=== PATIENT | female | born 1955 | race African-American/Black ===

== ENCOUNTER 2020-11-15 15:19 | Outpatient (REF) | payer BC, SELFPAY | END 2020-11-15 15:20 | disposition home or self-care (01) | LOC: HO.LNP 15:19 | PROVIDERS: Visit Provider Hospitalist | DX: Z20.828 Contact with and (suspected) exposure to other viral communicable diseases (principal) | CPT/HCPCS: U0003 ==

== ENCOUNTER 2021-09-20 14:02 | Outpatient (REF) | payer BC, SELFPAY ==
[2021-09-20 15:09] LABS: Influenza A PCR NEGATIVE (Negative); Influenza B PCR NEGATIVE (Negative); Resp Syncy Virus RNA Qual PCR NEGATIVE (Negative); SARS COV2 PCR INHOUSE NEGATIVE (Negative)
== END 2021-09-20 14:03 | disposition home or self-care (01) ==
LOC: HO.LAB 14:02
PROVIDERS: Visit Provider Physician Assistant Medical
DX: Z20.822 Contact with and (suspected) exposure to COVID-19 (principal); J06.9 Acute upper respiratory infection, unspecified
CPT/HCPCS: 0241U; 36415

== ENCOUNTER 2022-06-22 11:40 | Outpatient (REF) | payer BC, SELFPAY ==
--- NOTE | ~2022-06-22 | XR_ITS ---
EXAMINATION: XR CHEST CLINICAL INFORMATION: Cough, rule out pneumonia. COMPARISON: None TECHNIQUE: 2 views of the chest were obtained. FINDINGS: No significant abnormality is noted involving the heart, lungs, mediastinum, bony thorax or soft tissues. XR/XR chest 2V IMPRESSION: No acute cardiopulmonary process.
[2022-06-22 13:42] LABS: MANUAL DIFF FLAG NO
[2022-06-22 13:49] LABS: Basophils Percent Auto 0.3 % (0-2); Eosinophils Percent Auto 0.1 % (0-4); Hematocrit 41.1 % (37.0-47.0); Hemoglobin 13.1 g/dl (12.0-16.0); Imm Gran Abs Auto 0.02 X10*3/uL (0.00-0.03); Imm Gran Pct Auto 0.2 % (0.0-0.4); Lymphocytes Absolute Auto 2.5 X10*3/uL (1.2-4.9); Lymphocytes Percent Auto 24.6 % (20-40); Mean Corpuscular HGB Conc 31.9 g/dl (31.0-35.0); Mean Corpuscular Hemoglobin 29.2 pg (27.0-33.0); Mean Corpuscular Volume 91.7 fL (80.0-98.0); Mean Platelet Volume 11.1 fL (9.4-12.3); Monocytes Absolute Auto 0.9 X10*3/uL (0.1-1.2); Monocytes Percent Auto 8.6 % (2-11); Neutrophils Absolute Auto 6.8 x10*3/uL (2.0-8.3); Neutrophils Percent Auto 66.2 % (45-73); Platelet Count 302 X10*3/uL (160-400); Red Blood Count 4.48 X10*6/uL (4.20-5.50); Red Cell Distribution Width 13.9 % (11.0-16.0); White Blood Count 10.2 X10*3/uL (4.8-10.8)
[2022-06-22 14:03] LABS: Anion Gap 11 (12-20); Blood Urea Nitrogen 22 mg/dL (9-16); Calcium 9.1 mg/dL (8.4-10.2); Carbon Dioxide 25 mmol/L (22-29); Chloride 104 mmol/L (96-108); Estimated Glomerular Filt Rate 51; Glucose Random 120 mg/dL (60-115); Potassium 3.8 mmol/L (3.3-5.1); Sodium 136 mmol/L (135-145)
== END 2022-06-22 11:41 | disposition home or self-care (01) ==
LOC: HO.HMGCX 11:40
PROVIDERS: PCP Internal Medicine; Visit Provider Internal Medicine
DX: R53.83 Other fatigue (principal); E78.5 Hyperlipidemia, unspecified
CPT/HCPCS: 36415; 71046; 80048; 85025

== ENCOUNTER 2023-02-19 15:33 | Outpatient (REF) | payer BC, SELFPAY ==
--- NOTE | ~2023-02-19 | XR_ITS ---
EXAMINATION: XR KNEE, RIGHT CLINICAL INFORMATION: Right knee pain COMPARISON: Knee x-rays of 01/14/2008. TECHNIQUE: Four views of the right knee. FINDINGS: Right knee total arthroplasty hardware is in place. There is no evidence of periprosthetic lucency to suggest hardware loosening. No evidence of acute osseous fracture or dislocation. No evidence of suprapatellar joint effusion. No soft tissue calcifications are seen. XR/XR knee RT 4V IMPRESSION: No evidence of acute fracture or dislocation. Right total knee arthroplasty hardware is in place, without evidence of hardware loosening or hardware fracture. The prosthesis appears to be in appropriate position.
== END 2023-02-19 15:34 | disposition home or self-care (01) ==
LOC: HO.HMGCX 15:33
PROVIDERS: PCP Internal Medicine; Visit Provider Internal Medicine
DX: M25.561 Pain in right knee (principal)
CPT/HCPCS: 73564

== ENCOUNTER 2023-05-16 13:40 | Outpatient (REF) | payer BC, SELFPAY ==
--- NOTE | ~2023-05-16 | XR_ITS ---
EXAMINATION: XR CHEST CLINICAL INFORMATION: Acute sinusitis, unspecified COMPARISON: May 2022. TECHNIQUE: 2 views of the chest were obtained. Patient mildly rotated to the right. FINDINGS: No significant abnormality is noted involving the heart, lungs, mediastinum, bony thorax or soft tissues. There are small thoracic spondylitic changes. XR/XR chest 2V IMPRESSION: Unremarkable examination.
== END 2023-05-16 13:41 | disposition home or self-care (01) ==
LOC: HO.HMGCX 13:40
PROVIDERS: PCP Internal Medicine; Visit Provider Internal Medicine
DX: J01.90 Acute sinusitis, unspecified (principal)
CPT/HCPCS: 71046

== ENCOUNTER 2023-07-04 08:29 | Outpatient (AMB) | payer BC, SELFPAY ==
--- OUTSIDE RECORDS SUMMARY | 2023-07-04 08:32 | XMS_ITS | Patient Health Record ---
Demographics Address [address] [place] [address] Mobile Email Address Preferred Language en Marital Status unmarried Tenriism Affiliation Unknown Race Black or Padmini rican Ethnic Group Unknown Author Name [facility] Address [address] [place] [address] Support Name Relationship Address Phone EnocjosuéAmanda Emergency Contact [address] [place] [id number] Bruec Vieira Guarantor Unknown Care Team Providers Care Detasseler Name Role Phone Sonny Whitaker MD Primary Care Provider Unavailab Eva Mcdaniel Unavailable [phone] ALLERGIES Allergen (clinical drug ingredient) Drug/Non Drug Allergy documented on EMR Reaction Allergy Type Onset Date Status Adhesive bruising Allergy Active aspirin Aspirin vomiting Drug Allergy Active Latex Latex itching Allergy Active Penicillin swelling Drug Allergy Active Shellfish (FN) Shellfish-derived Products swelling Drug Allergy Active REASON FOR REFERRAL No Information MEDICATIONS Medication SIG (Take, Route, Frequency, Duration) Notes Start Date End Date Status Ibuprofen 800 MG 1 tablet with food o r milk as needed Orally Three times a day Active zzzCompression Stockings 20-30mm Hg . . . for . Active SOCIAL HISTORY Tobacco Use: Social History Observation Description Date Details (start date - stop date) Never Smoker NA - NA Sex Assigned At : Social History Observation Description Sex Assigned At Unknown Tobacco Use/Smoking Question Answer Notes Are you a: nonsmoker Additional Findings: Tobacco Non-User Current no n-smoker Alcohol Screen Question Answer Notes Did you have a drink containing alcohol in the p ast year? No Points 0 Interpretation Negative Tobacco use other than smoking: Question Answer Notes Are you an other tobacco user? No PROBLEMS Problem Type ICD Code Onset Dates Problem Status W/U Status Risk SNOMED Code Notes Problem Venous insufficiency (chronic) (peripheral) (I87.2) Active confirmed Peripheral veno us insufficiency (48735271) Problem Primary osteoarthritis, right ankle and foot (M19.071) Active confirmed Localized, primary osteoarthritis of the ankle and/or foot (721576981) Problem Primary osteoarthritis, left ankle and foot (M19.072) Active confirmed Localized, primary osteoarthritis of the ankle and/or foot (364451790) Problem Other hammer toe(s) (acquired), right foot (M20.41) Active confirmed Acquired hamme r toe of right foot (9535777371310887 ) Problem Other hammer toe(s) (acquired), left foot (M20.42) Active confirmed Acquired hamme r toe of left foot (4291448008350527 ) PLAN OF TREATMENT No Information Insurance Providers Payer Name Payer Address Payer Phone Subscriber Number Group Number Insured Name Patient Relationship to Insured Coverage Start Date Coverage End Date Varinder Iverson [address] [place] [address] [id number] Bruce Vieira Self - patient is the insured MEDICAL (GENERAL) HISTORY Medical History History ICD Code Arthritis Back,Hip,and Knee pain Headaches/Migraines Psoriasis/eczema Sciatica Measles Mumps Chicken pox Joint implants/screws Surgical History Surgery Date(Month/Year) rotator cuff, left 08/2012 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
--- NOTE | 2023-07-04 08:45 | AM.OFFWIN_ITS ---
Intake Vital Signs 07/04/23 08:46 Respiration 20 Pulse 67 Pulse Source Pulse Oximeter Temp 98.3 F Temp Source Oral Pulse Oximetry (%) 96 Oxygen Delivery Method Room Air Intake Visit Reasons: EP cough, chest pain, diarrhea (lobby masked) Patient Tobacco Use Status: Never used Tobacco Bottle Gauger Required: No Is last menstrual period known: No Post menopausal: Yes Patient : No Allergies penicillamine Allergy (Unknown, Verified 07/04/23 08:54) unknown Medication List - Last Reconciled 07/04/23 by Randall Fields MD albuterol sulfate 90 mcg/actuation 2 puffs inhalation Q4H PRN gabapentin 300 mg PO QID ibuprofen 800 mg PO Q8H PRN ranitidine HCl 150 mg PO BEDTIME Do you need a note to return to daycare/school/sports/work: Yes Return to da ycare/school/sports/work/other note: work HPI EP cough, chest pain, diarrhea (lobby masked) HPI Details Patient presents for a sick visit. Reporting symptoms of sinus congestion, sore throat and difficulty swallowing. Low-grade fever. No family member is sick. No recent travel. Patient reports symptoms of malaise and fatigue. [facility] Social History Alcohol intake: never Patient Tobacco Use Status: Never used Tobacco Patient : No Physical Exam Vital Signs: Last Vital Signs Temp 98.3 F 07/04/23 08:46 Pulse 67 07/04/23 08:46 Resp 20 07/04/23 08:46 Pulse Ox 96 07/04/23 08:46 Oxygen Delivery Method Room Air 07/04/23 08:46 Const General: cooperative and healthy appearing Nutritional Appearance: well nourished Orientation/consciousness: patient oriented x3 Limitations: no limitations HEENT Head: Yes normal to inspection Eyes General: appearance normal, both eyes and all related structures Neck Neck: Yes normal visual inspection Chest Chest palpation & inspection: normal palpation of entire chest wall Resp Effort & Inspection: normal respiratory effort Neuro General: patient oriented x3 Assessment & Plan Assessment & Plan (1) Upper respiratory tract infection: Code(s): J06.9 - Acute upper respiratory infection, unspecified Plan: Antibiotics ordered. Increase fluid intake. Tylenol for aches and pains. If symptoms worsen, follow-up here for a recheck. Coding Level of Care Code Est Pt Level 3 (35542) Diagnoses Upper respiratory tract infection J06.9
[2023-07-04 08:46] VITALS: PULSE 67; RESP 20; TEMP 36.8; O2SAT 96
== END 2023-07-04 09:04 | disposition home or self-care (01) ==
PROVIDERS: PCP Internal Medicine; Visit Provider Internal Medicine
DX: J06.9 Acute upper respiratory infection, unspecified (principal)
CPT/HCPCS: 99213

== ENCOUNTER 2023-12-20 09:58 | Outpatient (AMB) | payer BC, SELFPAY ==
--- OUTSIDE RECORDS SUMMARY | 2023-12-20 10:00 | XMS_ITS | Patient Health Record ---
Demographics Address [address] [place] [address] Mobile Email Address Preferred Language en Marital Status unmarried Anabaptist Affiliation Unknown Race Black or Padmini rican Ethnic Group Unknown Author Name Unknown [facility] Address [address] [place] [address] Support Name Relationship Address Phone EnocjosuéAmanda Emergency Contact [address] [place] [id number] Bruce Vieira Guarantor Unknown [phone] Care Team Providers Care Junk Dealer Name Role Phone Sonny Whitaker MD Primary Care Provider Unavailab Eva Mcdaniel Unavailable [phone] ALLERGIES Allergen (clinical drug ingredient) Drug/Non Drug [...] (I87.2) Active confirmed Peripheral veno us insufficiency (51442658) Problem Primary osteoarthritis, right ankle and foot (M19.071) Active confirmed Localized, primary osteoarthritis of the ankle and/or foot (965931431) Problem Primary osteoarthritis, left ankle and foot (M19.072) Active confirmed Localized, primary osteoarthritis of the ankle and/or foot (190414728) Problem Other hammer toe(s) (acquired), right foot (M20.41) Active confirmed Acquired hamme r toe of right foot ([id number] ) Problem Other hammer toe(s) (acquired), left foot (M20.42) Active confirmed Acquired hamme r toe of left foot ([id number] ) PLAN OF TREATMENT No Information Insurance Providers Payer Name Payer Address Payer Phone Subscriber Number Group Number Insured Name Patient Relationship to Insured Coverage Start Date Coverage End Date Varinder Iverson [address] [place] [address] [id number] Bruce Vieira Self - patient is the insured MEDICAL (GENERAL) HISTORY Medical History History ICD Code Arthritis Back,Hip,and Knee pain Headaches/Migraines Psoriasis/eczema Sciatica Measles Mumps Chicken pox Joint implants/screws Surgical History Surgery Date(Month/Year) rotator cuff, left 08/2012 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
--- NOTE | 2023-12-20 10:04 | AM.OFFWIN_ITS ---
Intake Vital Signs 12/20/23 10:05 Height 5 ft Weight 262 lb BMI 51.2 BP 140/78 H Blood Pressure Location Lt brachial Position Sitting Pulse 98 Pulse Source Pulse Oximeter Temp 97.1 F Temp Source Temporal Artery Scan Pulse Oximetry (%) 98 Oxygen Delivery Method Room Air Intake Visit Reasons: EP lightheaded congestion phlem [id number] Intake Note: pt is here today for lightheaded congestion phlem started yesterday Patient Tobacco Use Status: Never used Tobacco Allergies penicillamine Allergy (Unknown, Verified 12/20/23 10:05) unknown Medication List - Last Reconciled 12/20/23 by Angela Tavarez NP albuterol sulfate 90 mcg/actuation 2 puffs inhalation Q4H PRN azithromycin take 500 mg today (day 1), then 250 mg for 4 days (days 2-5) PO ibuprofen 800 mg PO Q8H PRN ranitidine HCl 150 mg PO BEDTIME Do you need a note to return to daycare/school/sports/work: Yes HPI HPI Comments History of Present Illness Details 68 y/o female presents to [facility] in clinic with c/o cough, and nasal congestion since yesterday. She has been taking oTC remedies. [facility] Social History Alcohol intake: never Patient Tobacco Use Status: Never used Tobacco Review of Systems Const All systems reviewed & are unremarkable except as noted in HPI and below Physical Exam Vital Signs: Last Vital Signs Temp 97.1 F 12/20/23 10:05 Pulse 98 12/20/23 10:05 BP 140/78 H 12/20/23 10:05 Pulse Ox 98 12/20/23 10:05 Oxygen Delivery Method Room Air 12/20/23 10:05 BMI result Body Mass Index 51.2 Const General: comfortable and no acute distress HEENT Head: Yes normocephalic Ears: external ears normal and TM's normal bilaterally General nose exam: Normal external nose present and Nasal discharge present Face and sinus: Yes sinuses nontender Mouth: oropharynx normal Throat: Yes postnasal drainage Resp Effort & Inspection: normal respiratory effort, no audible wheezes and Actively coughing Auscultation: clear to auscultation bilaterally, no crackles, no rales, no rhonchi and no wheezes Cardio Rate: regular rate Rhythm: regular rhythm Assessment & Plan Assessment & Plan (1) Acute rhinosinusitis: Code(s): J01.90 - Acute sinusitis, unspecified Plan: - Rest, hydrate well - OTC cold remedies. - Monitor for fevers. Orders: Orders SARS-CoV2/FLU/RSV Today J01.90 - Acute sinusitis, unspecified Medications: New benzonatate 200 mg (2 x 100 mg) PO TID 30 caps 0RF Coding Level of Care Code Est Pt Level 3 (43735) Diagnoses Acute rhinosinusitis J01.90 Time Spent (min) 15
[2023-12-20 10:05] VITALS: BP 140/78; PULSE 98; TEMP 36.2; O2SAT 98; BMI 51.2
== END 2023-12-20 11:29 | disposition home or self-care (01) ==
PROVIDERS: PCP Internal Medicine; Visit Provider Nurse Practitioner Family
DX: J01.90 Acute sinusitis, unspecified (principal)
CPT/HCPCS: 99213

== ENCOUNTER 2023-12-20 14:33 | Outpatient (REF) | payer BC, SELFPAY ==
[2023-12-20 15:46] LABS: Influenza A PCR NEGATIVE (Negative); Influenza B PCR NEGATIVE (Negative); Resp Syncy Virus RNA Qual PCR NEGATIVE (Negative); SARS COV2 PCR INHOUSE NEGATIVE (Negative)
== END 2023-12-20 14:34 | disposition home or self-care (01) ==
LOC: HO.LNP 14:33
PROVIDERS: Visit Provider Nurse Practitioner Family
DX: Z11.52 Encounter for screening for COVID-19 (principal); Z20.822 Contact with and (suspected) exposure to COVID-19; J01.90 Acute sinusitis, unspecified
CPT/HCPCS: 0241U

== ENCOUNTER 2024-01-04 07:00 | Outpatient (RCR) | payer BC, SELFPAY | END 2024-04-17 10:35 | disposition home or self-care (01) | LOC: HO.PTCHIC 07:00 | PROVIDERS: PCP Internal Medicine; Visit Provider Physician Assistant | DX: M67.811 Other specified disorders of synovium, right shoulder (principal); M67.812 Other specified disorders of synovium, left shoulder | CPT/HCPCS: 97014; 97110; 97140; 97161 ==

== ENCOUNTER 2024-03-12 09:44 | Outpatient (AMB) | payer BC, SELFPAY ==
[2024-03-12 09:47] VITALS: BP 122/80; PULSE 89; TEMP 36.6; O2SAT 95; BMI 47.5
--- NOTE | 2024-03-12 09:47 | AM.OFFWIN_ITS ---
Intake Vital Signs 03/12/24 09:47 Height 5 ft Weight 243 lb BMI 47.5 BP 122/80 Blood Pressure Location Lt brachial Position Sitting Pulse 89 Pulse Source Pulse Oximeter Temp 97.8 F Temp Source Temporal Artery Scan Pulse Oximetry (%) 95 Oxygen Delivery Method Room Air Intake Visit Reasons: EP Sweating, shaky, SOB Intake Note: pt is here today for sweating shaky started sunday Patient Tobacco Use Status: Never used Tobacco Allergies penicillamine Allergy (Unknown, Verified 03/12/24 09:50) unknown Do you need a note to return to daycare/school/sports/work: Yes HPI HPI Comments History of Present Illness Details 68 y/o female patient who presents to [facility] in clinic with c/o URI symptoms since Sunday. [facility] Medical History (Updated 03/12/24 @ 10:10 by Angela Tavarez NP) Cough in adult Social History Alcohol intake: never Patient Tobacco Use Status: Never used Tobacco Review of Systems Const All systems reviewed & are unremarkable except as noted in HPI and below Physical Exam Vital Signs: Last Vital Signs Temp 97.8 F 03/12/24 09:47 Pulse 89 03/12/24 09:47 BP 122/80 03/12/24 09:47 Pulse Ox 95 03/12/24 09:47 Oxygen Delivery Method Room Air 03/12/24 09:47 BMI result Body Mass Index 47.5 Const General: comfortable and no acute distress Nutritional Appearance: obese Orientation/consciousness: patient oriented x3 HEENT Head: Yes normocephalic Ears: external ears normal and TM abnormal bulging and with fluid behind the TM bilateral; not with effusion, not erythematous, not perforated and not retracted General nose exam: Normal nasal mucous membranes and turbinates present Face and sinus: Yes sinuses nontender Mouth: moist mucous membranes Throat: Yes posterior oropharynx normal Resp Effort & Inspection: normal respiratory effort and able to speak in complete sentences Auscultation: clear to auscultation bilaterally, no crackles, no rales, no rhonchi and no wheezes Cardio Rate: regular rate Rhythm: regular rhythm Neuro General: patient oriented x3 Assessment & Plan Assessment & Plan (1) Upper respiratory tract infection: Code(s): J06.9 - Acute upper respiratory infection, unspecified Qualifiers: URI type: unspecified viral URI Qualified Code(s): J06.9 - Acute upper respiratory infection, unspecified Plan: - SARs - OTC cough remedies - Acetaminophen for pain relief. - Rest and hydrate well. (2) Cough in adult: Code(s): R05.9 - Cough, unspecified Plan: - SARs - OTC cough remedies - Acetaminophen for pain relief. - Rest and hydrate well. Orders: Orders SARS-CoV2/FLU/RSV Today R05.9 - Cough, unspecified, R09.89 - Other specified symptoms and signs involving the circulatory and respiratory systems Medications: New XJ-rxkurbhqloquh-VF 10-325-200 mg/15 mL (Coricidin HBP Max Srws-Ser-Bmu) do not exceed 5 doses per 24 hrs 30 mL PO Q4-6H PRN 355 mL 1RF cough J06.9 - Acute upper respiratory infection, unspecified, R05.9 - Cough, unspecified benzonatate 100 mg PO TID 30 caps 0RF cough R05.9 - Cough, unspecified Coding Level of Care Code Est Pt Level 3 (56301) Diagnoses Viral upper respiratory tract infection J06.9 URI type: unspecified viral URI Cough in adult R05.9 Time Spent (min) 15
== END 2024-03-12 10:46 | disposition home or self-care (01) ==
PROVIDERS: PCP Internal Medicine; Visit Provider Nurse Practitioner Family
DX: J06.9 Acute upper respiratory infection, unspecified (principal); R05.9 Cough, unspecified
CPT/HCPCS: 99213

== ENCOUNTER 2024-03-12 10:07 | Outpatient (REF) | payer BC, SELFPAY ==
[2024-03-12 17:20] LABS: Influenza A PCR NEGATIVE (Negative); Influenza B PCR NEGATIVE (Negative); Resp Syncy Virus RNA Qual PCR NEGATIVE (Negative); SARS COV2 PCR INHOUSE NEGATIVE (Negative)
== END 2024-03-12 10:08 | disposition home or self-care (01) ==
LOC: HO.LAB 10:07
PROVIDERS: Visit Provider Nurse Practitioner Family
DX: R05.9 Cough, unspecified (principal); R09.89 Other specified symptoms and signs involving the circulatory and respiratory systems
CPT/HCPCS: 0241U

== ENCOUNTER 2024-09-30 09:47 | Outpatient (AMB) | payer MEDICARE, SELFPAY ==
--- NOTE | 2024-09-30 10:04 | MHC.OFFWIV ---
Intake Vital Signs 09/30/24 10:06 Height 5 ft Weight 259 lb BMI 50.6 BP 122/80 Blood Pressure Location Lt brachial Position Sitting Pulse 68 Pulse Source Pulse Oximeter Temp 97.7 F Temp Source Oral Pulse Oximetry (%) 97 Oxygen Delivery Method Room Air Intake Visit Reasons: EP coughing, body aches, tight chest Intake Note: Patient here for head congestion, headache, chest tightness when coughing, cough which started yesterday, Patient Tobacco Use Status: Never used Tobacco Allergies penicillamine Allergy (Unknown, Verified 09/30/24 10:07) unknown Do you need a note to return to daycare/school/sports/work: No HPI HPI Comments History of Present Illness Details Patient is a 69yo F who presents for viral illness symptoms She states +congestion, headache, cough with chest tightness associated Onset yesterday + body aches and headaches + chills without fever She states Theraflu, NyQuil without relief No covid tests obtained. She denies sick contacts No Chest pain, just tightness with cough No phlegm + sinus congestion PFSH Medical History (Updated 03/12/24 @ 10:10 by Angela Tavarez NP) Cough in adult Social History Alcohol intake: never Patient Tobacco Use Status: Never used Tobacco Review of Systems Const Reports chills, Reports fatigue and Denies fever(s) Eyes Denies blurry vision ENT Denies otalgia, Reports nasal discharge, Denies nasal obstruction, Denies sinus pressure and Reports sore throat (with coughing) Card Denies chest pain and Denies syncope Resp Reports chest congestion, Reports cough, Denies hemoptysis and Reports pain with cough (tightness) GI Denies vomiting Neuro Denies syncope Endo Reports fatigue Physical Exam Vital Signs: Last Vital Signs Temp 97.7 F 09/30/24 10:06 Pulse 68 09/30/24 10:06 BP 122/80 09/30/24 10:06 Pulse Ox 97 09/30/24 10:06 Oxygen Delivery Method Room Air 09/30/24 10:06 BMI result Body Mass Index 50.6 General: Non-toxic, NAD. Speaking full sentences. Skin: Warm dry throughout Eye: EOMI HENT: Airway patent. Uvula midline. No pharyngeal erythema or edema. No PHARMACIST APPRENTICE. Bilateral canals clear. TM non-erythematous, non-bulging. No TM perforation or hemotympanum noted. Respiratory: CTA bilaterally. No wheezes, rales or rhonchi. + dry cough on exam Cardiac: RRR. No murmur MSK: Full ROM extremities. Neurology: A/O. No aphasia or facial droop. Gait without abnormality using cane Psych: Good mood and affect Assessment & Plan Assessment & Plan (1) Upper respiratory tract infection: Code(s): J06.9 - Acute upper respiratory infection, unspecified Qualifiers: URI type: unspecified viral URI Qualified Code(s): J06.9 - Acute upper respiratory infection, unspecified Plan: Patient seen and evaluated Vitals stable Flu/covid/rsv swab obtained Will prescribe tessalon to take for cough by itself Discussed ER s/s to monitor for F/U with PCP Pt gave verbal understanding and had no additional concerns at this time Orders: Orders SARS-CoV2/FLU/RSV Today J06.9 - Acute upper respiratory infection, unspecified Medications: New benzonatate 200 mg PO BID PRN 14 caps 0RF cough Coding Level of Care Code Est Pt Level 3 (99318) Diagnoses Viral upper respiratory tract infection J06.9 URI type: unspecified viral URI
[2024-09-30 10:06] VITALS: BP 122/80; PULSE 68; TEMP 36.5; O2SAT 97; BMI 50.6
== END 2024-09-30 10:21 | disposition home or self-care (01) ==
PROVIDERS: PCP Internal Medicine; Visit Provider Physician Assistant
DX: J06.9 Acute upper respiratory infection, unspecified (principal)

== ENCOUNTER 2024-09-30 09:47 | Outpatient (REF) | payer MEDICARE, SELFPAY ==
[2024-09-30 15:27] LABS: Influenza A PCR NEGATIVE (Negative); Influenza B PCR NEGATIVE (Negative); Resp Syncy Virus RNA Qual PCR NEGATIVE (Negative); SARS COV2 PCR INHOUSE NEGATIVE (Negative)
== END 2024-09-30 09:48 | disposition home or self-care (01) ==
LOC: HO.LNP 09:47
PROVIDERS: PCP Internal Medicine; Visit Provider Physician Assistant
DX: J06.9 Acute upper respiratory infection, unspecified (principal)
CPT/HCPCS: 0241U; 99212

== ENCOUNTER 2025-08-28 10:32 | Outpatient (AMB) | payer MEDICARE, SELFPAY ==
--- OUTSIDE RECORDS SUMMARY | 2025-08-25 08:30 | XMS_ITS | Encounter Summary ---
Author Organization [facility] Address [address] [place] [address] Support Name Relationship Address Phone Amanda White Daughter [address] [place] [address] Care Team Providers Care Meteorology Professor Name Role Phone Adolph Butt MD Primary Care Provider [phone] Reason for Referral * Consultation (Routine) - Closed Specialty Diagnoses / Procedures Referred By Contact Referred To Contact Physical Medicine and Rehabilitation Diagnoses Myofascial pain on right side Prasanna Watts MD [address] [place] [address] Phone: tel:[phone] fax:[phone] [facility] [address] [place] [address] Phone: tel: fax: Referral ID Status Reason Start Date Expiration Date V isits Requested Visits Authorized [id number] Closed Specialty Services Required 08/25/2025 08/25/2026 1 1 * Consultation (Routine) - Pending Review Specialty Diagnoses / Procedures Referred By Remy pham Referred To Contact Physical Therapy Diagnoses Arthritis of both glenohumeral joints Myofascial pain on right side Prasanna Watts MD [address] [place] [address] Phone: tel: fax: Referral ID Status Reason Start Date Expiration Date Visits Requested Visits Authorized [id number] Pending Review Specialty Services Required 08/25/2025 08/25/2026 8 8 Reason for Visit * Reason Comments Consult Bilateral shoulder p ain * Consultation (Routine) - Authorized Specialty Diagnoses / Procedures Referred By Contflorencio t Referred To Contact Orthopaedic Surgery Diagnoses Chronic pain of both shoulders Gio Riley PA [address] [place] [address] Phone: tel: fax: Prasanna Watts MD [address] [place] [id number] Phone: tel: fax: Referral ID Status Reason Start Date Expiration Date Visits Requested Visits Authorized [id number] Authorized Specialty Services Required 08/13/2025 08/13/2026 1 1 Encounter Details Date Type Department Care Team (Late st Contact Info) Description 08/25/2025 8:30 AM EDT Consult Orthopedic Surgery - [place] [address] [address] Prasanna Watts MD [address] [place] [address] Chronic pain of both shoulders (Primary Dx); Arthritis of both glenohumeral joints; Myofascial pain on right side Social History Tobacco Use Types Packs/Day Years Used Date Smoking Tobacco: Never Smokeless Tobacco: Never Alcohol Use Standard Drinks/Week Comments No 0 (1 standard drink = 0.6 oz pur e alcohol) Housing Instability Answer Date Recorde d Are you worried that in the next 2 months you may not have stable housing? No 10/03/2024 Food Access & Nutrition Answer Date Rec orded Do you have access to a vari ety of food including fruits and vegetables? Yes 10/03/2024 Access to Healthcare Answer Date Record ed Within the last 3 months, ho w many times did you visit the emergency department for your medical care? 0 10/03/2024 Health Literacy Answer Date Recorded How often do you need to hav e someone help you when you read instructions, pamphlets, or other written material from your doctor or pharmacy? Never 10/03/2024 Caregiver: How often do you need to have someone help you when you read instructions, pamphlets, or other written material from your doctor or pharmacy? Not on file 10/03/2024 Financial Risk Answer Date Recorded How hard is it for you to pa y for the very basics like food, housing, medical care, and air conditioning / heating? Not very hard 10/03/2024 Transportation Answer Date Recorded Has the lack of transportati on kept you from meetings, work, or from getting things needed for daily living? No Has the lack of transportati on kept you from medical appointments or from getting medications? No 10/03/2024 Social Isolation Answer Date Recorded How often do you feel lonely or isolated from th ose around you? Never 10/03/2024 Food Risk Answer Date Recorded Within the past 12 months we worried whether our food would run out before we got money to buy more. Never true 10/03/2024 Within the past 12 months th e food we bought just didn't last and we didn't have money to get more. Never true 10/03/2024 Dependent Care Answer Date Recorded Do you need help finding or paying for care for your loved ones. For example, rn maternal child or elderly care for an older adult? No 10/03/2024 Education Answer Date Recorded Do you think completing more education or training, like finishing a GED, going to college, or learning a trade, would be helpful for you? Yes 10/03/2024 Employment and Income Answer Date Recor ded During the last four weeks, have you been actively looking for work? No 10/03/2024 Living Situation Answer Date Recorded What is your living situation? Unrecognized valu e 10/03/2024 Comments No Sex and Gender Information Value Date Recorded Sex Assigned at Female 10/07/2024 4:41 PM EST Legal Sex Female 11:31 PM EST Gender Identity Female 10/07/2024 4:41 PM EST Sexual Orientation Straight 10/07/2024 4: 41 PM EST documented as of this encounter Progress Notes * Prasanna Watts MD - 08/25/2025 8:30 AM EDT Date: August 25, 2025 Chief Complaint: Bilateral left greater than right shoulder pain Date of injury/duration of symptoms: atraumatic chronic HPI: Bruce Vieira is a 70 y.o. female RHD BMI of 50 cane ambulator [id number] (A1C of 6.1) presenting for evaluation of bilateral shoulder pain. She reports a past surgical history on her left of a left rotator cuff repair in 2011 followed by a cleanout procedure in 2022 this was performed by Dr. Ramirez. She reports that her right shoulder pain started without any known fall or injury. Been present forabout a year. She has a dull aching pain and difficulty lifting the arm away from her body. Will affect her ability to sleep. She has had previous corticosteroid junctions which have not had significant proved in her pain. She denies previous ultrasound-guided injections or physical therapy She says that her left side initially did well after her surgery. This gradually recurred and she underwent the cleanout procedure in 2022. She subsequently had recurrent pain around the same time as her other side without any new fall or injury. Again this is a dull aching pain that radiates down her arm and makes it difficult for her to reach away from her body. Patient has been followed by Gio Riley and received a bilateral subacromial corticosteroid injection most recently November 2024 Medical History[1] Surgical History[2] Family History[3] Social History Socioeconomic History Marital status: Single Spouse name: Not on file Number of children: Not on file Years of education: Not on file Highest education level: Not on file Occupational History Not on file Tobacco Use Smoking status: Never Smokeless tobacco: Never Substance and Sexual Activity Alcohol use: No Drug use: No Sexual activity: Not on file Other Topics Concern Not on file Social History Narrative Not on file Current Medications[4] Allergies[5] Objective Focused Exam: Demonstrate tenderness to palpation over the upper trapezius muscles on her right which she identifies as being a typical component of her shoulder pain RUE AROM FF/abduction/ER/IR: 70/40/30/Ilium PROM FF 130 weak with rotator cuff strength testing with resisted ER at 0 degrees of abduction Subscapularis: negative Belly Press AC Joint: no TTP Biceps: negative Yergason's test LUE AROM FF/abduction/ER/IR: 80/80/15/L1 PROM FF 150 weak with rotator cuff strength testing with resisted ER at 0 degrees of abduction Supraspinatus: positive Mike's Test Subscapularis: negative Belly Press AC Joint: no TTP Biceps: negative Yergason's test Imaging/diagnostic studies: X-rays of the bilateral shoulder obtained 12/11/2024 independently reviewed. This shows on the rightmild glenohumeral arthritis with joint space narrowing and marginal osteophyte formation. Acromioclavicular joint appears relatively well- preserved, there is some spurring of the lateral acromion. Soft tissue shadows appear in normal. On the left there is more moderate to severe glenohumeral arthritis with narrowing of the glenohumeral joint space and humeral head osteophyte formation. There postsurgical changes of the acromion consistent with likely acromioplasty. MRI of the left shoulder obtained 01/05/2024 independently reviewed today. This shows evidence of postsurgical changes with anchor placement in the greater tuberosity. Bicepstendon is within the bicipital groove, subscapularis tendon appears intact there are moderate to severe degenerative changes of the glenohumeral joint with bony edema on the glenoid and osteophyte formation of the humeral head. Rotator cuff appears intact at the supraspinatus tendon having intact insertion 4 view x-rays of the bilateral shoulder including AP Grashey, scapular Y, and axillary show: On the right mild glenohumeral arthritis with joint space narrowing and marginal osteophyte formation, there is some spurring of the lateral acromion, acromioclavicular joint appears normal Soft tissue shadows appear normal, no evidence of acute fracture or dislocation On the left there is more moderate to severe glenohumeral arthritis. There are postsurgical changesleft consistent with acromioplasty of the acromion. No evidence of acute fracture or dislocations. Soft tissue shadows appear normal. Impression: Degenerative changes of the bilateral glenohumeral joint more severe on the left than the right with postsurgical changes of the left shoulder. Medical Decision Making (base on 2 out of 3 elements): Problems Addressed: Moderate- 2 or more stable, chronic illnesses Tests Ordered and/or Reviewed: Moderate-Independent interpretation of a diagnostic testing or treatment (not separately reported): MRI and previous x- rays of the right shoulder Risk Level: Low risk Assessment: Bruce Vieira presents with bilateral shoulder pain. On her right her radiographs do show some arthritis however her pain appears to be mostly consistent with myofascial pain of the upper trapezius. She also has significant decreased active and passive range of motion. I explained that I would rec ommend physical therapy and referral to physiatry for possible trigger point injections. As for herunderlying chronic arthritis we consider a ultrasound- guided corticosteroid injection as she did not have a significant proven after previous subacromial injections. I also recommended some physical therapy to maintain her shoulder range of motion as she has decreased active and passive range of motion. She voiced understanding. She agreed with this plan of care. As discussed her left shoulder shows more significant glenohumeral arthritis. Again I recommended atrial of nonop treatment with possible corticosteroid injection under ultrasound guidance into the glenohumeral joint. I explained that she is a high risk surgical candidate although she has had success after previous rotator cuff repair with what appears to be a intact rotator cuff on MRI due to her significant body mass index and I recommended weight loss prior to any surgical considerations such as a possible arthroplasty in the future if she has persistent symptoms despite nonoperative treatment. She voiced understanding. Plan: Right shoulder pain with glenohumeral arthritis - Corticosteroid injection under ultrasound guidance, will schedule appointment Left shoulder glenohumeral arthritis status post previous shoulder arthroscopy with rotator cuff repair in 2011 and 2022 - Corticosteroid injection under ultrasound guidance will schedule appointment - Recommended weight loss and medical optimization if she is to undergo arthroplasty Right myofascial pain - Physiatry for possible trigger point injections - Physical therapy referral Prasanna Watts MD I have obtained verbal consent from Bruce Vieira prior to the recording. I have advised Bruce Vieira that she may refuse the recording and require the recording to be turned off at any time. [1] Past Medical History: Diagnosis Date Arthritis DX:Arthritis;COMMENT:BILATERAL KNEES Arthritis of both knees 08/04/2014 DX:Arthritis of both knees; COMMENT: Dr. Ramirez, in [facility] Arthritis of shoulder 03/19/2024 DX:Arthritis of shoulder Combined systolic and diastolic congestive heart failure (CMS/HCC V24, CMS/HCC V28) 03/19/2024 DX:Combined systolic and diastolic congestive heart failure (HCC) Morbid obesity with BMI of 40.0-44.9, adult ([facility] V24, [facility] V28) 03/08/2017 DX:Morbid obesity with BMI of 40.0-44.9, adult ([facility]); COMMENT: Most recent BMI BOBBY on CPAP 08/04/2014 DX:BOBBY on CPAP Osteoarthritis of left knee 03/08/2017 DX:Osteoarthritis of left knee [2] Past Surgical History: Procedure Laterality Date EYE SURGERY Right 1959 PROCEDURE:EYE SURGERY;COMMENT:CORRECT CROSS EYE EYE SURGERY Left 1960 PROCEDURE:EYE SURGERY;COMMENT:CORRECT LEFT CROSS EYE JOINT REPLACEMENT Right 2015 PROCEDURE:JOINT REPLACEMENT;COMMENT:RIGHT KNEE - DR FONSECA KNEE SURGERY PROCEDURE:KNEE SURGERY ROTATOR CUFF REPAIR Right 2010 PROCEDURE:ROTATOR CUFF REPAIR;COMMENT:SHOULDER ROTATOR CUFF REPAIR Left 2011 PROCEDURE: HISTORICAL ROTATOR CUFF REPAIR; COMMENT: tetlin ct TOTAL KNEE ARTHROPLASTY Right PROCEDURE: DC ARTHRP KNE CONDYLE&PLATU MEDIAL&LAT COMPARTMENTS; COMMENT: right 10/18/15 [3] Family History Problem Relation Name Age of Onset Hypertension Mother Stroke Mother Diabetes Mother stroke, arthritis Arthritis Mother Hypertension Father Stroke Father Diabetes Father arthritis Heart disease Father Seizures Brother Other (Other: Epilepsy) Daughter Breast cancer Neg Hx [4] Current Outpatient Medications: acetaminophen (TYLENOL) 500 mg tablet, TAKE 2 TABLETS (1,000 MG TOTAL) BY MOUTH EVERY 6 (SIX) HOURSIF NEEDED FOR MILD PAIN., Disp: 90 tablet, Rfl: 3 albuterol HFA (PROAIR HFA ; PROVENTIL HFA ; VENTOLIN HFA) 90 mcg/actuation inhaler, Inhale 2 Puffs into the lungs every 6 hours as needed for Cough or Wheezing for up to 30 days., Disp: , Rfl: aspirin 81 mg EC tablet, Take 1 Tablet by mouth daily., Disp: , Rfl: atorvastatin (LIPITOR) 40 mg tablet, Take 1 Tablet by mouth daily., Disp: , Rfl: blood glucose control, high (PangaloreTouch Verio High Control) solution, 1 drop 1 (one) time each day. Use to ensure accuracy of meter once a day, Disp: 1 each, Rfl: 0 blood sugar diagnostic (Intermolecularuch Verio test strips) test strip, Use once a day to test sugars dxe11.9, Disp: 100 each, Rfl: 1 blood-glucose meter (Intermolecularuch Verio Reflect Meter) [facility], Test blood sugar 3 times daily, Disp: , Rfl: cetirizine (ZyrTEC) 10 mg tablet, Take 1 tablet (10 mg total) by mouth 1 (one) time each day., Disp: , Rfl: cholecalciferol (VITAMIN D-3) 50 mcg (2,000 unit) tablet, Take 1 Tablet by mouth daily., Disp: , Rfl: diclofenac (VOLTAREN) 1 % topical gel, Apply 2 g topically 2 (two) times a day., Disp: 100 g, Rfl: 4 empagliflozin (Jardiance) 25 mg tablet, Take 1 tablet (25 mg total) by mouth 1 (one) time each day in the morning., Disp: 90 tablet, Rfl: 1 xbzmzsse-otggmleh-upjp-beeswax ointment, by Not Applicable route., Disp: , Rfl: fluticasone propionate (FLONASE) 50 mcg/actuation nasal spray, USE 1 SPRAY BY NASAL ROUTE 2 TIMES DAILY NEEDED FOR RHINITIS., Disp: , Rfl: furosemide (LASIX) 40 mg tablet, TAKE 1.5 TABLETS (60 MG TOTAL) BY MOUTH ONCE DAILY, Disp: 135 tablet, Rfl: 1 RUSS OIL, BULK, MISC, by Not Applicable route., Disp: , Rfl: glipiZIDE (Glucotrol XL) 2.5 mg 24 hr tablet, Take 1 tablet (2.5 mg total) by mouth 1 (one) time each day. Do not crush, chew, or split., Disp: 90 each, Rfl: 1 ibuprofen (ADVIL,MOTRIN) 800 mg tablet, Take 1 tablet (800 mg total) by mouth 3 (three) times a daywith meals., Disp: , Rfl: inhalat.spacing dev,large mask (BreatheRite Spacer-Mask,Adult) spacer, 1 Device by Does not apply route as needed (for use with MDI - wheezing/cough)., Disp: , Rfl: ipratropium-albuteroL (Combivent Respimat) 20-100 mcg/actuation inhaler, Inhale 1 puff by mouth 3 (three) times a day., Disp: 1 each, Rfl: 11 KLOR-CON 20 mEq CR tablet, TAKE 1 TABLET BY MOUTH EVERY DAY, Disp: 90 tablet, Rfl: 1 lancets (OneTouch Delica Plus Lancet) 33 gauge, 1 Device by Does not apply route 3 times daily. Useto test sugar three x a day dxe11.29, Disp: , Rfl: loratadine (CLARITIN) 10 mg tablet, Take 1 Tablet by mouth at bedtime as needed for Allergies for up to 360 days., Disp: , Rfl: medical supply, miscellaneous (MISCELLANEOUS MEDICAL SUPPLY MISC), Inhale into the lungs. Life supply- pressure 6- 16, Disp: , Rfl: metoprolol succinate (TOPROL-XL) 25 mg 24 hr tablet, Take 1 tablet (25 mg total) by mouth 1 (one) time each day. Do not crush or chew., Disp: 90 tablet, Rfl: 3 polyethylene glycol (Golytely) 236-22.74-6.74 -5.86 gram solution, Take 4L by mouth once for one dose. May substitue any PEG. Starting at 6PM the night before your procedure drink 1 8oz glasses at your own pace until you complete half of the gallon. Finish 2nd half of the gallon 5 hours before yourprocedure., Disp: 4000 mL, Rfl: 0 [5] Allergies Allergen Reactions Penicillin G Anaphylaxis Adhesive Tape bruising Dairy Aid [Lactase] Latex Rash Meloxicam Nausea And Vomiting Shellfish Containing Products Other Reaction(s): Hives/Blisters documented in this encounter Plan of Treatment Upcoming Encounters Date Type Department Care Team (Late st Contact Info) Description 09/02/2025 11:15 AM EDT Office Visit Orthopedic Surgery [facility] [address] [facility] [address] [place] [phone] Prasanna Watts MD [address] [place] [address] 09/04/2025 9:30 AM EDT Office Visit Vascular Surgery [facility] [address] [facility] [address] [place] [phone] Aster Mckeon PA 300 [facility] [address] [place] [address] 09/17/2025 9:00 AM EDT Nutrition Internal Medicine - [place] [address] [phone] Savita De La Rosa, RD [address] [place] [phone] 09/17/2025 10:30 AM EDT Office Visit Internal Medicine - [address] [phone] Adolph Butt MD [address] [phone] 10/16/2025 9:10 AM EST Office Visit [facility] [address] [place] [phone] Miroslava Lima NP [address] [place] [address] [address] [place] [phone] 03/29/2026 8:45 AM EDT Office Visit Pulmonology - [address] [phone] Nicky Pandey MD [address] [address] Scheduled Referrals Name Type Priority Associated Diagnoses Orde r Schedule Ambulatory referral to Physical Therapy and Athletic Training Outpatient Referral Routine Arthritis of both glenohumeral joints Myofascial pain on right side 1 Occurrences starting 08/25/2025 until 08/25/2026 Ambulatory referral to Physical Medicine Rehab Outpatient Referral Routine Myofascial pain on right side 1 Occurrences starting 08/25/2025 until 08/25/2026 documented as of this encounter Results * XR Shoulder 2+ Views bilat (08/25/2025 8:11 AM EDT) Anatomical Region Laterality Modality Upper Extremities, Shoulder Bilateral Comp uted Radiography Narrative 08/25/2025 8:41 AM EDT 4 view x-rays of the bilateral shoulder including AP Grashey, scapular Y, and axillary show: On the right mild glenohumeral arthritis with joint space narrowing and marginal osteophyte formation, there is some spurring of the lateral acromion, acromioclavicular joint appears normal. Soft tissue shadows appear normal, no evidence of acute fracture or dislocation. On the left there is more moderate to severe glenohumeral arthritis. There are postsurgical changes left consistent with acromioplasty of the acromion. No evidence of acute fracture or dislocations. Soft tissue shadows appear normal. Impression: Degenerative changes of the bilateral glenohumeral joint more severe on the left than the right with postsurgical changes of the left shoulder. Prasanna Watts MD IMG XR PROCEDURES Final Result documented in this encounter Visit Diagnoses Diagnosis Chronic pain of both shoulders- Primary Arthritis of both glenohumeral joints Myofascial pain on right side documented in this encounter Orders Outpatient Referral Count Last Ordered Date Fir st Ordered Date AMB REFERRAL TO SPORTS [facility]ICINE 1 5 documented in this encounter Additional Health Concerns Assessment Noted Time PHQ-9 Depression Total Score: 0 03/17/20 25 7:50 AM EDT documented as of this encounter Care Teams Meteorology Professor Relationship Specialty Start Date End Date Adolph Butt MD [address] [place] [phone] PCP - General 02/11/24 documented as of this encounter
[2025-08-28 10:44] VITALS: BP 136/76; PULSE 75; TEMP 36.6; O2SAT 98; BMI 51.2
--- NOTE | 2025-08-28 10:44 | MHC.OFFWIV ---
Intake Vital Signs 08/28/25 10:44 Height 5 ft Weight 262 lb BMI 51.2 BP 136/76 Blood Pressure Location Lt brachial Position Sitting Pulse 75 Pulse Source Pulse Oximeter Temp 97.9 F Temp Source Oral Pulse Oximetry (%) 98 Oxygen Delivery Method Room Air Intake Visit Reasons: EP Wasp sting on right arm Intake Note: pt presents with right arm swelling after a wasp sting 9 days ago Patient Tobacco Use Status: Never used Tobacco Allergies penicillamine Allergy (Unknown, Verified 08/28/25 10:46) unknown Do you need a note to return to daycare/school/sports/work: No HPI EP Wasp sting on right arm HPI Details This is a 70 year old female patient who presents to the [place] clinic today with report of itchy/red/swollen area on left arm following a wasp sting about 9 days ago. She has been putting ice, calamine lotion, and hydrocortisone on area, however it continues to be bothersome. She has been itching it quite a bit and has noticed some small open areas now. No history of allergic reactions to insect stings. No respiratory symptoms. [facility] Medical History Cough in adult Social History Alcohol intake: never Patient Tobacco Use Status: Never used Tobacco Review of Systems Const All systems reviewed & are unremarkable except as noted in HPI and below Physical Exam Vital Signs: Last Vital Signs Temp 97.9 F 08/28/25 10:44 Pulse 75 08/28/25 10:44 BP 136/76 08/28/25 10:44 Pulse Ox 98 08/28/25 10:44 Oxygen Delivery Method Room Air 08/28/25 10:44 BMI result Body Mass Index 51.2 Const General: cooperative, healthy appearing and no acute distress Resp Effort & Inspection: normal respiratory effort Auscultation: clear to auscultation bilaterally Cardio Rate: regular rate Rhythm: regular rhythm Skin Other: lower dorsal aspect of right arm noted to have erythematous/indurated area approx. 4cm x 6cm. Area warm to touch with three small open areas s/p itching. Extrem General: Yes capillary refill normal and Yes no clubbing, cyanosis or edema Psych Appearance: grossly normal Mental Status: mental status grossly normal Speech and movement: Normal speech and movement present Assessment & Plan Assessment & Plan (1) Allergic reaction to insect sting: Code(s): T63.481A - Toxic effect of venom of other arthropod, accidental (unintentional), initial encounter Qualifiers: Encounter type: initial encounter Injury intent: undetermined intent Qualified Code(s): T63.484A - Toxic effect of venom of other arthropod, undetermined, initial encounter Plan: Has tried otc steroid creams. Will start her on a short course of PO Prednisone. Has taken this previously for other reasons and did not have side effects. We reviewed indications, use, possible s/e of this. Can continue to apply ice/calamine lotion as needed for comfort. (2) Cellulitis of forearm, right: Code(s): L03.113 - Cellulitis of right upper limb Plan: Area appears to be developing cellulitis. Encouraged patient to try to refrain from itching. Will start her on Cephalexin, which we reviewed. We discussed indications to return for f/u care, including any worsening or spreading of redness/swelling, or any development of fevers/chills. Patient verbalizes understanding and agrees to plan. Medications: New cephalexin 500 mg PO TID 15 caps 0RF 5 days L03.113 - Cellulitis of right upper limb prednisone 40 mg (2 x 20 mg) PO DAILY 6 tabs 0RF 3 days T63.484A - Toxic effect of venom of other arthropod, undetermined, initial encounter Coding Level of Care Code Est Pt Level 4 (79098) Diagnoses Allergic reaction to insect sting, undetermined intent, initial encounter T63.484A Encounter type: initial encounter Injury intent: undetermined intent Cellulitis of forearm, right L03.113
--- OUTSIDE RECORDS SUMMARY | 2025-08-28 11:27 | XMS_ITS ---
[facility] Name [facility] Unknown History of Medication Use Medication Directions Dispensed Refills Start Date End Date Stat us lidocaine (PF) 100 mg/5 mL (2 %) injection syringe Take 3 mL by injection route. 02/25/2024 active triamcinolone acetonide 40 mg/mL suspension for injection Take 60 mg by injection route. 02/25/2024 active lidocaine (PF) 10 mg/mL (1 %) injection solution Take 4 mL by injection route. 11/29/2023 02/25/20 24 completed Marcaine (PF) 0.5 % (5 mg/mL) injection solution Take 4 mL by injection route. 11/29/2023 02/25/20 24 completed meloxicam 15 mg tablet Take 1 tablet every day by oral route as needed. 11/29/2023 12/25/19 24 active Marcaine (PF) 0.5 % (5 mg/mL) injection solution Take 4 mL by injection route. 11/29/2023 active Kenalog 40 mg/mL suspension for injection Take 2 mL by injection route. 09/19/2023 active lidocaine (PF) 10 mg/mL (1 %) injection solution Take 4 mL by injection route. 09/19/2023 active azithromycin 250 mg tablet TAKE 2 TABLETS BY MOUTH TODAY, THEN TAKE 1 TABLET DAILY FOR 4 DAYS 12/25/19 24 active azithromycin 250 mg tablet TAKE 2 TABLETS BY MOUTH TODAY, THEN TAKE 1 TABLET DAILY FOR 4 DAYS 12/25/19 24 completed betamethasone dipropionate 0.05 % topical ointment PLEASE SEE ATTACHED FOR DETAILED DIRECTIONS 12/25/19 24 active betamethasone dipropionate 0.05 % topical ointment PLEASE SEE ATTACHED FOR DETAILED DIRECTIONS 12/25/19 24 completed clindamycin HCl 300 mg capsule TAKE 2 CAPSULES (600 MG) BY ORAL ROUTE X1 DOSE, 1 HOUR BEFORE PROCEDURE FOR PREMEDICATION 12/25/19 24 completed clindamycin HCl 300 mg capsule TAKE 2 CAPSULES (600 MG) BY ORAL ROUTE X1 DOSE, 1 HOUR BEFORE PROCEDURE FOR PREMEDICATION 12/25/19 24 completed meloxicam 15 mg tablet TAKE 1 TABLET EVERY DAY BY ORAL ROUTE NEEDED. 12/25/19 24 completed ciprofloxacin 250 mg tablet TAKE 1 TABLET BY MOUTH TWICE A DAY 09/19/20 23 active ciprofloxacin 250 mg tablet TAKE 1 TABLET BY MOUTH TWICE A DAY 09/19/20 23 completed dexamethasone 4 mg tablet TAKE BY MOUTH 1 TABLET TWICE A DAY FOR 5 DAYS 09/19/20 23 completed dexamethasone 4 mg tablet TAKE BY MOUTH 1 TABLET TWICE A DAY FOR 5 DAYS 09/19/20 23 active fluticasone propionate 50 mcg/actuation nasal spray,suspension USE 2 SPRAYS IN EACH NOSTRIL DAILY 09/19/20 23 completed fluticasone propionate 50 mcg/actuation nasal spray,suspension USE 2 SPRAYS IN EACH NOSTRIL DAILY 09/19/20 23 completed levofloxacin 500 mg tablet TAKE 1 TABLET BY MOUTH EVERY DAY 09/19/20 23 active levofloxacin 500 mg tablet TAKE 1 TABLET BY MOUTH EVERY DAY 09/19/20 23 completed oxycodone 5 mg tablet TAKE 1-2 TABS EVERY 4 HOURS NEEDED FOR PAIN FOLLOWING YOUR LEFT SHOULDER SURGERY INS MAX 6/DAY 09/19/20 23 completed oxycodone 5 mg tablet TAKE 1-2 TABS EVERY 4 HOURS NEEDED FOR PAIN FOLLOWING YOUR LEFT SHOULDER SURGERY INS MAX 6/DAY 09/19/20 23 completed Paxlovid 300 mg (150 mg x 2)-100 mg tablets in a dose pack TAKE 3 TABLETS BY MOUTH TWICE A DAY FOR 5 DAYS 09/19/20 23 completed Paxlovid 300 mg (150 mg x 2)-100 mg tablets in a dose pack TAKE 3 TABLETS BY MOUTH TWICE A DAY FOR 5 DAYS 09/19/20 23 active prednisone 20 mg tablet TAKE 3 TABLETS BY MOUTH EVERY DAY 09/19/20 23 completed prednisone 20 mg tablet TAKE 3 TABLETS BY MOUTH EVERY DAY 09/19/20 23 completed lidocaine (PF) 100 mg/5 mL (2 %) injection syringe active triamcinolone acetonide 40 mg/mL suspension for injection active acetaminophen 500 mg tablet TAKE 1 TABLET BY MOUTH EVERY 6 HOURS NEEDED FOR PAIN active albuterol sulfate HFA 90 mcg/actuation aerosol inhaler INHALE 2 PUFFS EVERY 4 HOURS NEEDED FOR WHEEZING active albuterol sulfate HFA 90 mcg/actuation aerosol inhaler INHALE 2 PUFFS EVERY 4 HOURS NEEDED FOR WHEEZING active aspirin 81 mg tablet,delayed release TAKE 1 TABLET BY MOUTH EVERY DAY active atorvastatin 40 mg tablet TAKE 1 TABLET BY MOUTH EVERY DAY active benzonatate 100 mg capsule TAKE 1 CAPSULE BY MOUTH 3 TIMES A DAY FOR COUGH active benzonatate 100 mg capsule TAKE 2 CAPSULES BY MOUTH 3 TIMES A DAY active cetirizine 10 mg tablet TAKE 1 TABLET BY MOUTH AT BEDTIME NEEDED FOR ALLERGIES. active cholecalciferol (vitamin D3) 50 mcg (2,000 unit) tablet TAKE 1 TABLET BY MOUTH EVERY DAY active diclofenac 1 % topical gel APPLY 1 G TOPICALLY 3 TIMES DAILY NEEDED (PAIN). active diphenoxylate-atropi ne 2.5 mg-0.025 mg tablet TAKE ONE TABLET AFTER EACH LOOSE STOOL NO MORE THAN 6 PER DAY active furosemide 20 mg tablet TAKE 2 TABLETS BY MOUTH TWICE A DAY FOR 1 WEEK, THEN 2 TABS EVERY DAY FOR 1 WEEK THEN 1 TAB DAILY active furosemide 40 mg tablet TAKE 1 TABLET BY MOUTH EVERY DAY active ibuprofen 800 mg tablet TAKE 1 TABLET BY MOUTH THREE TIMES A DAY WITH FOOD active ibuprofen 800 mg tablet TAKE 1 TABLET BY MOUTH 3 TIMES A DAY WITH FOOD active Jardiance 10 mg tablet TAKE 1 TABLET BY MOUTH EVERY MORNING. PLEASE CLOSE 25 MG SCRIPT active Klor-Con M20 mEq tablet,extended release TAKE 1 TABLET BY MOUTH EVERY DAY active Lantus Solostar U-100 Insulin 100 unit/mL (3 mL) subcutaneous pen INJECT 10 UNITS INTO THE SKIN AT BEDTIME. active metformin 500 mg tablet TAKE 1 TABLET BY MOUTH TWICE A DAY WITH A MEAL active metformin ER 500 mg tablet,extended release 24 hr TAKE 1 TABLET BY MOUTH TWICE A DAY WITH MEALS active naproxen 500 mg tablet TAKE 1 TABLET BY MOUTH TWICE A DAY WITH FOOD active ondansetron HCl 4 mg tablet TAKE 1 TABLET BY MOUTH EVERY 8 HOURS NEEDED active pantoprazole 40 mg tablet,delayed release TAKE 1 TABLET BY MOUTH TWICE A DAY active sodium fluoride 1.1 % dental paste BRUSH YOUR TEETH 4 TIMES A DAY USING TOOTHPASTE active sodium fluoride 1.1 % dental paste BRUSH YOUR TEETH 4 TIMES A DAY USING TOOTHPASTE active Trulicity 0.75 mg/0.5 mL subcutaneous pen injector INJECT 1 PEN SUBCUTANEOUSLY ONE TIME PER WEEK active Allergies Allergen Reaction Severity Comment Documented Date Source Statu s ASPIRIN ENS_[facility]ONECT MELOXICAM VOMITING E[facility]ECT PENICILLINS E[facility]ONECT Problems Problem Status Onset Date Problem Type Date of Resoluti on Source Tendinitis of rotator cuff tendon active 2023-11-29 ProblemAct E[facility]AONECT Impingement syndrome of right shoulder region active 2024-01-09 ProblemAct ENS_AO NECT Impingement syndrome of left shoulder region active 2023-12-25 ProblemAct E[facility]AON ECT Encounters Encounter Type Encounter Reason Primary Diagnosis Location Date Ambulatory [facility] [place] 05/17/2024 [facility]ulatory [facility] [place] 04/24/2024 [facility]ulatory [facility] [place] 02/26/2024 Ambulatory [facility] [place] 02/25/2024 Ambulatory [facility] [place] 02/25/2024 Ambulatory [facility] [place] 02/21/2024 Ambulatory [facility] [place] 12/25/2023 Ambulatory [facility] [place] 12/25/2023 Ambulatory [facility] [place] 11/29/2023 Ambulatory [facility] [place] 11/29/2023 Ambulatory [facility] [place] 09/19/2023 [facility] [place] 09/18/2023 [facility] [place] 09/18/2023 [facility] [place] 09/17/2023 Amb[facility] [place] 03/06/2023 Care Team Organization Name Specialty Phone Email Start Date End [facility] 04/27/2023 [facility] 10/03/2022 [facility]
--- OUTSIDE RECORDS SUMMARY | 2025-08-28 11:27 | XMS_ITS | Clinical Summary ---
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 Name Role Phone Brice Bucio MD Primary Care Provider [phone] Social History Tobacco Use Types Packs/Day Years Used Date Smoking Tobacco: Never Assessed Comments Unknown Sex and Gender Information Value Date Recorded Sex Assigned at Not on file Legal Sex Female 4:32 PM EDT Gender Identity Not on file Sexual Orientation Not on file Last Filed Vital Signs Vital Sign Reading Time Taken Comments Blood Pressure 118/80 10/22/2012 1:10 PM EST Pulse 76 10/22/2012 1:10 PM EST Temperature 37 C (98.6 F) 10/22/2012 1:10 PM EST Respiratory Rate 16 10/22/2012 1:10 PM EST Oxygen Saturation - - Inhaled Oxygen Concentration - - Weight 106 kg (233 lb 0.1 oz) 05/16/2012 2:14 PM EDT Height 157.5 cm (5' 2 ) 05/16/2012 2:14 PM EDT Body Mass Index 42.62 05/16/2012 2:14 PM EDT Plan of Treatment Health Maintenance Due Date Last Done Comments Advance Care Planning 1955 Hepatitis C Virus Screening 1955 DTaP/Tdap/Td Vaccines (1 - Tdap) 1976 Pneumococcal Vaccines 50+ (1 of 1 - PCV) 2007 Zoster (Shingles) Vaccine (1 of 2) 2007 COVID-19 Vaccine ( - 2023-2 5 season) 2025 RSV Vaccine 60 years and old er and Patients (1 - 1-dose 75+ series) 2032 Hepatitis B Vaccines Aged Out No long er eligible based on patient's age to complete this topic Care Teams Filling Station Equipment Mechanic Relationship Specialty Start Date End Date Brice Bucio MD [address] [place] [id number] PCP - General
--- OUTSIDE RECORDS SUMMARY | 2025-08-28 11:28 | XMS_ITS | Patient Health Record ---
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 Passenger Coach Driver Name Role Phone Sonny Whitaker MD Primary Care Provider Unavailab Eva Mcdaniel Unavailable [phone] Allergies Allergen (clinical drug ingredient) Drug/Non Drug Allergy documented on EMR Reaction Allergy Type Onset Date Status Adhesive bruising Allergy Active aspirin Aspirin vomiting Drug Allergy Active Latex Latex itching Allergy Active Penicillin swelling Drug Allergy Active Shellfish (FN) Shellfish-derived Products swelling Drug Allergy Active Reason For Referral No Information Medications Medication SIG (Take, Route, Frequency, Duration) Notes Start Date End Date Status Ibuprofen 800 MG 1 tablet with food o r milk as needed Orally Three times a day Active zzzCompression Stockings 20-30mm Hg . . .; Duration: . Active Social History Tobacco Use: Social History Observation Description Date Details (start date - stop date) Never Smoker NA - NA Tobacco Use/Smoking Question Answer Notes Are you a: nonsmoker Additional Findings: Tobacco Non-User Current no n-smoker Alcohol Screen Question Answer Notes Did you have a drink containing alcohol in the p ast year? No Points 0 Interpretation Negative Tobacco use other than smoking: Question Answer Notes Are you an other tobacco user? No Problems Problem Type SNOMED Code ICD Code Onset Dates Problem Status W/U Status Risk Notes Problem Peripheral venous insufficiency (24340123) Venous insufficiency (chronic) (peripheral) (I87.2) Active confirmed Problem Localized, primary osteoarthritis of the ankle and/or foot (570876420) Primary osteoarthritis, right ankle and foot (M19.071) Active confirmed Problem Localized, primary osteoarthritis of the ankle and/or foot (366358513) Primary osteoarthritis, left ankle and foot (M19.072) Active confirmed Problem Acquired hammer toe of right foot (7355292632466049) Other hammer toe(s) (acquired), right foot (M20.41) Active confirmed Problem Acquired hammer toe of left foot (2508403244064558) Other hammer toe(s) (acquired), left foot (M20.42) Active confirmed Plan Of Treatment No Information Insurance Providers Payer Name Payer Address Payer Phone Subscriber Number Group Number Insured Name Patient Relationship to Insured Coverage Start Date Coverage End Date Varinder Iverson [address] [place] [address] [id number] Bruce Vieira Self - patient is the insured Medical (General) History Medical History History ICD Code Arthritis Back,Hip,and Knee pain Headaches/Migraines Psoriasis/eczema Sciatica Measles Mumps Chicken pox Joint implants/screws Surgical History Surgery Date(Month/Year) rotator cuff, left 08/2012 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
--- OUTSIDE RECORDS SUMMARY | 2025-08-28 11:28 | XMS_ITS | Clinical Summary ---
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 04/11/20 24 Active aspirin 81 mg EC tablet Take 1 Tablet by mouth daily. 02/26/20 24 Active atorvastatin (LIPITOR) 40 mg tablet Take 1 Tablet by mouth daily. 02/26/20 24 Active cholecalciferol (VITAMIN D-3) 50 mcg (2,000 unit) tablet Take 1 Tablet by mouth daily. 03/20/20 24 Active medical supply, miscellaneous (MISCELLANEOUS MEDICAL SUPPLY MISC) Inhale into the lungs. Life supply- pressure 6- 16 Active fluticasone propionate (FLONASE) 50 mcg/actuation nasal spray USE 1 SPRAY BY NASAL ROUTE 2 TIMES DAILY NEEDED FOR RHINITIS. 05/14/20 24 Active loratadine (CLARITIN) 10 mg tablet Take 1 Tablet by mouth at bedtime as needed for Allergies for up to 360 days. 07/18/20 24 Active lancets (VI SystemsTouch Delica Plus Lancet) 33 gauge 1 Device by Does not apply route 3 times daily. Use to test sugar three x a day dxe11.29 04/22/20 24 Active inhalat.spacing dev,large mask (BreatheRite Spacer-Mask,Adult ) spacer 1 Device by Does not apply route as needed (for use with MDI - wheezing/cough ). 09/08/20 Active diclofenac (VOLTAREN) 1 % topical gel Apply 2 g topically 2 (two) times a day. 100 g 4 10/28/20 Active blood glucose control, high (OneTouch Verio High Control) solution 1 drop 1 (one) time each day. Use to ensure accuracy of meter once a day 1 each 11/13/20 24 Active polyethylene glycol (Golytely) 236-22.74-6.74 -5.86 gram solution Take 4L by mouth once for one dose. May substitue any PEG. Starting at 6PM the night before your procedure drink 1 8oz glasses at your own pace until you complete half of the gallon. Finish 2nd half of the gallon 5 hours before your procedure. 4000 mL 11/20/20 24 Active cetirizine (ZyrTEC) 10 mg tablet Take 1 tablet (10 mg total) by mouth 1 (one) time each day. Active ibuprofen (ADVIL,MOTRIN) 800 mg tablet Take 1 tablet (800 mg total) by mouth 3 (three) times a day with meals. Active eucalypt-lavender -pine-beeswax ointment by Not Applicable route. Active RUSS OIL, BULK, MISC by Not Applicable route. Active blood-glucose meter (OneTouch Verio Reflect Meter) misc Test blood sugar 3 times daily Active metoprolol succinate (TOPROL-XL) 25 mg 24 hr tablet Take 1 tablet (25 mg total) by mouth 1 (one) time each day. Do not crush or chew. 90 tablet 3 01/30/20 25 Active KLOR-CON 20 mEq CR tablet TAKE 1 TABLET BY MOUTH EVERY DAY 90 tablet 1 03/18/20 25 Active blood sugar diagnostic (OneTouch Verio test strips) test strip Use once a day to test sugars dxe11.9 100 each 1 03/18/20 25 026 Active acetaminophen (TYLENOL) 500 mg tablet TAKE 2 TABLETS (1,000 MG TOTAL) BY MOUTH EVERY 6 (SIX) HOURS IF NEEDED FOR MILD PAIN. 90 tablet 3 04/06/20 25 Active furosemide (LASIX) 40 mg tablet TAKE 1.5 TABLETS (60 MG TOTAL) BY MOUTH ONCE DAILY 135 tablet 1 05/11/20 25 Active glipiZIDE (Glucotrol XL) 2.5 mg 24 hr tablet Take 1 tablet (2.5 mg total) by mouth 1 (one) time each day. Do not crush, chew, or split. 90 each 1 07/30/20 25 Active empagliflozin (Jardiance) 25 mg tablet Take 1 tablet (25 mg total) by mouth 1 (one) time each day in the morning. 90 tablet 1 07/30/20 25 Active ipratropium-albut Jocelin (Combivent Respimat) 20-100 mcg/actuation inhaler Inhale 1 puff by mouth 3 (three) times a day. 1 each 11 08/06/20 25 026 Active empagliflozin (Jardiance) 25 mg tablet Take 1 tablet (25 mg total) by mouth 1 (one) time each day in the morning. 90 tablet 1 11/05/20 24 025 Discontin ued(Reord er) pantoprazole (PROTONIX) 40 mg EC tablet Take 1 tablet (40 mg total) by mouth 2 (two) times a day. 025 Discontin ued(Enter ed in Error) lancets (OneTouch Delica Plus Lancet) 33 gauge USE DIRECTED TWICE DAILY TO TEST SUGAR. 025 Discontin ued(Dupli feliciano order) albuterol HFA (PROAIR HFA ; PROVENTIL HFA ; VENTOLIN HFA) 90 mcg/actuation inhalerIndication s:Chronic bronchitis, unspecified chronic bronchitis type (CMS/HCC V24, CMS/HCC V28) Inhale 2 puffs by mouth every 6 (six) hours if needed for wheezing or shortness of breath. 3 each 3 03/25/20 25 025 Discontin ued(Mae wiggins order) Active Problems Problem Noted Date Diagnosed Date (HFpEF) heart failure with p reserved ejection fraction ([facility] V24, [facility] V28) 04/07/2024 Overview (09/15/2024): Last Assessment & Plan: Patient has a history of presumed heart failure with preserved ejection fraction. Her last echocardiogram showed normal LV function and indeterminate diastolic function. At today's visit, she reports improvement in her lower extremity edema since increasing the furosemide at her last office visit. Repeat BMP showed stable labs. At this point, she will resume her home dose of furosemide at 40 mg orally daily and notify me of any changes in her symptoms. I've asked the patient to call if they develop worsening symptoms of heart failure such as increased shortness of breath, new or worsening cough, increased swelling in the legs or ankles, or weight gain of more than 2 pounds in one day or 4 pounds in one week. Assessment & Plan (01/29/2025 9:23 AM EST): Patient appears euvolemic on physical exam today without clinical signs of acute heart failure. She has been feeling well from a cardiac standpoint and continues on Jardiance and furosemide. She does report that she will see improvement in her lower extremity edema when she occasionally increases her furosemide in the mornings to 2 tablets (80 mg daily). At this point, recommend she increase her furosemide to 60 mg orally daily and repeat BMP in 1 week to see if this improves her symptoms. I've asked the patient to call if they develop worsening symptoms of heart failure such as increased shortness of breath, new or worsening cough, increased swelling in the legs or ankles, or weight gain of more than 2 pounds in one day or 4 pounds in one week. Orders: Comprehensive metabolic panel; Future Magnesium; Future WELCH (dyspnea on exertion) 04/07/2024 Overview (09/15/2024): Last Assessment & Plan: The patient has a longstanding history of shortness of breath and dyspnea on exertion. She was seen by [place] pulmonology service in the past. Her dyspnea on exertion is likely multifactorial. From a cardiac standpoint, she underwent echocardiogram which showed normal LV function and no significant valvular disease. She also underwent a pharmacological nuclear stress test which showed small, mild, reversible perfusion defect of the apical septal and apical wall consistent with ischemia. It was also noted that this could represent a variant of benign apical thinning but could not exclude ischemic coronary artery disease on the basis of the study. The patient was then referred for cardiac CT scan to rule out obstructive coronary disease as a cause of her symptoms. This is scheduled for next month. She will continue on her current doses of furosemide and Jardiance for her presumed HFpEF. She appears euvolemic on physical exam today without clinical signs of acute heart failure. Assessment & Plan (01/29/2025 9:23 AM EST): Multifactorial. Mild chronic stable dyspnea. Recent cardiac CT scan showed no evidence of coronary artery disease plaque or stenosis. Her last echocardiogram showed normal LV function. Indeterminant diastolic function. We discussed this in depth today. Recommend she continue to follow with pulmonology and notify me of any changes in her symptoms. Fatigue 04/07/2024 Overview (09/15/2024): Last Assessment & Plan: Patient reports ongoing fatigue. She continues to wear her CPAP on a nightly basis and reports she recently had a titration study with pulmonology service and no changes were made. Recent TSH was noted to be within normal limits. Will update CMP to reassess her kidney function and potassium level. Will also undergo stress testing to rule out ischemia as a cause of her fatigue and dyspnea on exertion. Lower extremity edema 04/07/2024 Overview (09/15/2024): Last Assessment & Plan: Patient has chronic lower extremity edema. She underwent a lower extremity venous duplex which showed clinically significant reflux in the GSV in the right and lower extremity. She has an upcoming appointment with vascular surgery in August. Type 2 diabetes mellitus wit hout complication, without long-term current use of insulin ([facility] V24, [facility] V28) 03/20/2024 Arthritis of shoulder 03/19/2024 Raynaud's disease without gangrene 06/30/2021 Abdominal wall lump 03/20/2019 Overview (09/15/2024): Solid mass noted on ultrasound, pending CAT scan revealed likely a lipoma however liposarcoma cannot be excluded. Referred to general surgery Dyslipidemia 09/29/2018 Overview (09/15/2024): Last Assessment & Plan: Patient has a history of hyperlipidemia. Last fasting cholesterol levels showed LDL cholesterol of 62. She will continue her current dose of atorvastatin as prescribed. Vitamin D deficiency 09/29/2018 Osteoarthritis of left knee 03/08/2017 Arthritis of both knees 08/04/2014 Overview (09/15/2024): Dr. Ramirez, in [facility] BOBBY on CPAP 08/04/2014 Overview (09/15/2024): BOBBY 2015 moderate AHI 19 Resolved Problems Problem Noted Date Diagnosed Date Resolved Date Abnormal stress test 05/08/2024 025 Overview (09/15/2024): Last Assessment & Plan: The patient had been reporting dyspnea on exertion and fatigue. She underwent a nuclear stress test March 2024 which showed small, mild, reversible perfusion defect of the apical septal and apical wall consistent with ischemia. Could also represent a variant of benign apical thinning but cannot exclude ischemic coronary disease on the basis of the study. Normal LV function. She also underwent echocardiogram January 2024 which showed normal LV function and no significant valvular disease. We discussed these results in depth today. She reports that her symptoms have not worsened and have improved. She continues on aspirin and statin as prescribed. At this point, I recommend she undergo further assessment with a cardiac CT scan to evaluate for obstructive coronary artery disease as a cause of her symptoms. Will initiate metoprolol 25 mg orally daily. I will notify her of the results as soon as the become available and she will notify me of any worsening symptoms. Patient advised to seek emergency medical attention by calling 911 if they were to develop severe dyspnea, chest pain that did not resolve with rest or nitroglycerin, or if they were to faint. Encounters Date Type Department Care Team Description 08/25/2025 8:30 AM EDT Consult Orthopedic Surgery - [place] [address] [place] [phone] Prasanna Watts MD Chronic pain of both shoulders (Primary Dx); Arthritis of both glenohumeral joints; Myofascial pain on right side 08/25/2025 Results Follow-Up [facility] [address] [place] [phone] Deisi Hicks NP 08/13/2025 11:45 AM EDT Office Visit Orthopedics [address] [phone] Gio Riley PA Chronic pain of both shoulders (Primary Dx) 08/13/2025 Telephone Adult Medicine [address] [phone] Bethany Dong PharmD 08/06/2025 11:00 AM EDT Office Visit Pulmonology [facility] [address] [phone] Nicky Pandey MD BOBBY (obstructive sleep apnea) (Primary Dx); Chronic bronchitis, unspecified chronic bronchitis type (CMS/HCC V24, CMS/HCC V28); Lung nodules; Primary hypertension 06/24/2025 12:11 PM EDT - 06/24/2025 11:59 PM EDT Hospital Encounter XRAY [address] [phone] Other fatigue Discharge Disposition: Home or Self Care 06/23/2025 8:30 AM EDT Office Visit Pulmonology [facility] [address] [phone] Nicky Pandey MD BOBBY on CPAP (Primary Dx); Chronic bronchitis, unspecified chronic bronchitis type (CMS/HCC V24, CMS/HCC V28); Lung nodules 06/23/2025 Telephone Pulmonology [facility] [address] [phone] Sherley Felix MA 06/18/2025 Telephone [facility] [address] [place] [address] Miroslava Lima NP 06/17/2025 11:20 AM EDT Lab Draw Station - [address] [phone] Fatigue (Primary Dx); Dyslipidemia; Obstructive sleep apnea (adult) (pediatric); Chronic heart failure with preserved ejection fraction ([facility] V24, [facility] V28) 06/16/2025 9:00 AM EDT Nutrition Internal Medicine - [place] 175 [facility] 200 [place] [phone] Savita De La Rosa, ARTURO Type 2 diabetes mellitus without complication, without long-term current use of insulin ([facility] V24, [facility] V28) (Primary Dx); Morbid (severe) obesity due to excess calories ([facility] V24, [facility] V28) 06/16/2025 8:15 AM EDT Office Visit Bariatric Surgery - [place] 175 [facility] [address] [place] [phone] Rosa Maria Palacio PA Class 3 severe obesity due to excess calories with serious comorbidity and body mass index (BMI) of 50.0 to 59.9 in adult ([facility] V24, [facility] V28) (Primary Dx) 06/11/2025 10:00 AM EDT Ancillary Procedure [facility] - [facility] [address] [facility] 101 [place] [phone] Lower extremity edema 06/09/2025 Telephone Vascular Surgery - [place] 300 [facility] 210 [place] [phone] Aster Mckeon PA from Last 3 Months Immunizations Immunization Administration Dates Next Due Moderna SARS-CoV-2 COVID-19, mRNA, LNP-S, preservative free 05/05/2021,04/07/2021 Pneumococcal conjugate 20 va lent (Prevnar 20, PCV 20) 2mo and older 07/18/2024 Zoster Live 11/23/2020 Surgical History Surgery Date Site/Laterality Comments JOINT REPLACEMENT 2014 Right PROCEDURE:JOINT REPLACEMENT;COMMENT:RIGHT KNEE - DR FONSECA ROTATOR CUFF REPAIR 2010 Right PROCEDURE:ROTATOR CUFF REPAIR;COMMENT:SHOULDER EYE SURGERY 1959 Right PROCEDURE:EYE SURGERY;COMMENT:CORRECT CROSS EYE EYE SURGERY 1960 Left PROCEDURE:EYE SURGERY;COMMENT:CORRECT LEFT CROSS EYE KNEE SURGERY PROCEDURE:KNEE SURGERY ROTATOR CUFF REPAIR 2011 Left PROCEDURE: HISTORICAL ROTATOR CUFF REPAIR; COMMENT: geyser ct TOTAL KNEE ARTHROPLASTY Right PROCEDURE: OR ARTHRP KNE CONDYLE&PLATU MEDIAL&LAT COMPARTMENTS; COMMENT: right 10/18/15 Medical History Medical History Date Comments Arthritis DX:Arthritis;COM MENT:BILATERAL KNEES Arthritis of both knees 08/04/2014 DX:Arthr itis of both knees; COMMENT: Dr. 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 (CMS/HCC V24, CMS/HCC V28) 03/19/2024 DX:Combined systolic and aleshia stolic congestive heart failure ([facility]) Family History Medical History Relation Name Comments Seizures Brother 1 Other: Epilepsy Daughter 1 Diabetes Father arthritis Heart disease Father Hypertension Father Stroke Father Arthritis Mother Diabetes Mother stroke, arthrit is Hypertension Mother Stroke Mother Breast cancer Neg Hx Relation Name Status Comments Brother 1 Brother 2 Alive A&W Brother 3 Alive A&W Brother 4 Alive A&W Daughter 1 Daughter 2 Alive epilepsy Father DM Maternal Grandfather Maternal Grandmother Mother DM, stroke Paternal Grandfather Paternal Grandmother Social History Tobacco Use Types Packs/Day Years Used Date Smoking Tobacco: Never Smokeless Tobacco: Never Tobacco Cessation:Counseling Given: Not Answered Alcohol Use Standard Drinks/Week Comments No 0 [...] care for your loved ones. For example, child health associate or elderly care for an older adult? [...] Orientation Straight 10/07/2024 4: 41 PM EST Obstetrics History Para Term AB IAB SAB Ectopic Multiple Livin g Live Births 1 1 1 1 Date Outcome GA Total Labor Labor/2nd/3rd Weight Sex Type Anes PTL Kate A1 A5 Name Clin Term Last Filed Vital Signs Vital Sign Reading Time Taken Comments Blood Pressure 174/82 08/06/2025 10:39 AM EDT Pulse 73 08/06/2025 10:39 AM EDT Temperature 36.2 C (97.1 F) 08/06/2025 10:39 AM EDT Respiratory Rate 18 08/13/2025 11:48 AM EDT Oxygen Saturation 99% 08/06/2025 10:39 AM EDT Inhaled Oxygen Concentration - - Weight 117 kg (257 lb) 08/13/2025 11:48 AM EDT Height 152.4 cm (5') 08/13/2025 11:48 AM EDT Body Mass Index 50.19 08/13/2025 11:48 AM EDT Plan of Treatment Upcoming Encounters Date Type Department Care Team (Late st Contact Info) Description 09/02/2025 11:15 AM EDT Office Visit Orthopedic Surgery - [place] 175 [facility] 140 [place] [phone] Prasanna Watts MD 175 [place] [address] 09/04/2025 9:30 AM EDT Office Visit Vascular Surgery [facility] 300 [facility] 210 [place] [phone] Aster Mckeon PA 300 [facility] [address] [place] [address] 09/17/2025 9:00 AM EDT Nutrition Internal Medicine - [place] 175 [facility] 200 [place] [phone] Savita De La Rosa, ARTURO 175 [place] [phone] 09/17/2025 10:30 AM EDT Office Visit Internal Medicine - [place] 175 [facility] 200 [place] [phone] Adolph Butt MD 175 [facility] 200 [place] [phone] 10/16/2025 9:10 AM EST Office Visit [facility] - [facility] [address] [place] [phone] Miroslava Lima NP [address] [place] [address] [address] [place] [phone] 03/29/2026 8:45 AM EDT Office Visit Pulmonology - [place] 175 [facility] 200 [place] [phone] Nicky Pandey MD [address] [phone] Health Maintenance Due Date Last Done Comments DTaP,Tdap,and Td Vaccines (1 - Tdap) 1976 RSV Immunization Adult Patients (1 - Risk 60-74 years 1-dose series) 2017 Zoster Vaccines (2 of 3) 01/18/2021 11/23/2020, 10/27 Colorectal Cancer Screening: Stool Based Tests (FOBT/FIT) 10/29/2022 Diabetes: Blood Sugar Control Test (HGBA1C) 02/05/2025 08/08/2024, 08/08/2024, 04/30/2024 Diabetes: Annual Urine Albumin-Creatinine Ratio (uACR) 04/30/2025 04/30/2024 Diabetes: Annual Foot Exam 07/18/2025 07/18/2024 Medicare Annual Wellness Visit 07/18/2025 07/18/2024 COVID-19 Vaccine ( season) 2025 05/05/2021, 04/07/2021 Influenza Vaccine (#1) 2025 Diabetes: Annual Retina Eye Exam 09/29/2025 09/29/2024 Social Influencers of Health Screening 10/03/2025 10/03/2024 Falls Risk Assessment 06/16/2026 06/16/2025 , 10/08/2024, 03/19/2024 Diabetes: Annual GFR (Glomerular Filtration Rate) 08/25/2026 08/25/2025, 06/17/2025, 08/08/2024, Additional history exists Hypertension/CHF/CAD Annual BMP Blood Test 08/25/2026 08/25/2025, 06/17/2025, 08/08/2024, Additional history exists Breast Cancer Screening 12/29/2026 12/29/19, 09/09/2021, 08/23/2020, Additional history exists Cholesterol Screening (Lipid Panel) 03/19/2029 03/19/2024 Osteoporosis Screening (Bone Density Screening) 12/29/2034 12/29/2024 Colorectal Cancer Screening: Colonoscopy Discontinued 11/18/2014 Hepatitis C Screening Completed 03/19/2024 Pneumococcal Vaccine: 50+ Years Completed 07/18/2024 Depression Screening Completed 06/15/2025, 07/18/20 HIB Vaccines Aged Out No longer eligi ble based on patient's age to complete this topic HPV Vaccines Aged Out No longer eligi ble based on patient's age to complete this topic Hepatitis A Vaccines Aged Out No long er eligible based on patient's age to complete this topic Hepatitis B Vaccines Aged Out No long er eligible based on patient's age to complete this topic IPV Vaccines Aged Out No longer eligi ble based on patient's age to complete this topic MMR Vaccines Aged Out No longer eligi ble based on patient's age to complete this topic Meningococcal ACWY Vaccine Aged Out N o longer eligible based on patient's age to complete this topic Meningococcal B Vaccine Aged Out No l onger eligible based on patient's age to complete this topic RSV Immunization Patients Under 20 months Aged Out No longer eligible based on patient's age to complete this topic Varicella Vaccines Aged Out No longer eligible based on patient's age to complete this topic Procedures Procedure Name Priority Date/Time Associated Diagnosis Comments BASIC METABOLIC PANEL Routine 08/25/2025 10:02 AM EDT Lower extremity edema XR SHOULDER 2+ VIEWS BILAT Routine 08/25/2025 8:11 AM EDT Chronic pain of both shoulders XR CHEST 2 VIEWS Routine 06/24/2025 12:2 0 PM EDT Other fatigue COMPREHENSIVE METABOLIC PANEL Routine 06/17/2025 11:24 AM EDT Chronic heart failure with preserved ejection fraction (CMS/HCC V24, CMS/HCC V28) MAGNESIUM Routine 06/17/2025 11:24 AM EDT Chronic heart failure with preserved ejection fraction (CMS/HCC V24, CMS/HCC V28) THYROID STIMULATING HORMONE WITH REFLEX TO FREE T4 AND FREE T3 Routine 06/17/2025 11:24 AM EDT Fatigue Dyslipidemia Obstructive sleep apnea (adult) (pediatric) VAS US DUPLEX LOWER EXT VENOUS INSUFFICIENCY BILATERAL Routine 06/11/2025 10:22 AM EDT Lower extremity edema BD BONE DENSITY DXA AXIAL SKELETON Routine 12/29/2024 3:48 PM EST History of falling Encounter for general adult medical examination without abnormal findings Unspecified diastolic (congestive) heart failure (CMS/HCC V24, CMS/HCC V28) Morbid (severe) obesity due to excess calories (CMS/HCC V24, CMS/HCC V28) Body mass index (BMI) 45.0-49.9, adult (CMS/HCC V24, CMS/HCC V28) Hyperlipidemia, unspecified Bilateral primary osteoarthritis of knee Presence of right artificial knee joint Obstructive sleep apnea (adult) (pediatric) Lymphedema, not elsewhere classified MG MAMMO DIGITAL SCREENING W CHARLIE BILAT Routine 12/29/2024 2:46 PM EST Encounter for screening mammogram for breast cancer EXTERNAL DIABETIC RETINA EYE EXAM 09/29/2024 HEMOGLOBIN A1C Routine 08/08/2024 HM DEPRESSION SCREENING Routine 07/18/2024 DIABETES FOOT EXAM Routine 07/18/2024 URINE ALBUMIN CREATININE RATIO Routine 04/30/2024 HEPATITIS C SCREENING Routine 03/19/2024 FALLS RISK ASSESSMENT Routine 03/19/2024 LIPID PANEL Routine 03/19/2024 COLONOSCOPY Routine 11/18/2014 from Last 3 Months or Most Recently Relevant to Health Maintenance Results * (ABNORMAL) Basic metabolic panel (08/25/2025 10:02 AM EDT) [facility] Sodium 140 133 - 145 mmol/L LAB CHEMISTRY METHOD 08/25/2025 3:33 PM [facility] Potassium 3.6 3.5 - 5.5 mmol/L LAB CHEMISTRY METHOD 08/25/2025 3:33 PM [facility] Chloride 106 96 - 110 mmol/L LAB CHEMISTRY METHOD 08/25/2025 3:33 PM [facility] CO2 28 21 - 32 mmol/L LAB CHEMISTRY METHOD 08/25/2025 3:33 PM [facility] Anion Gap 6 3 - 11 LAB CHEMISTRY METHOD 08/25/2025 3:33 PM [facility] Glucose 114(H) 70 - 100 mg/dL LAB CHEMISTRY METHOD 08/25/2025 3:33 PM [facility] BUN 15 5 - 25 mg/dL LAB CHEMISTRY METHOD 08/25/2025 3:33 PM [facility] Creatinine 0.98 0.50 - 1.10 mg/dL LAB CHEMISTRY METHOD 08/25/2025 3:33 PM [facility] eGFR 63 >=60 mL/min/1. 73m2 LAB CHEMISTRY METHOD 08/25/2025 3:33 PM [facility] Comment:Calculation based on the Chronic Kidney Disease Epidemiology Collaboration (CKD-EPI) equation refit without adjustment for race. BUN/Creatinine Ratio 15.3 LAB CHEMISTRY METHOD 08/25/2025 3:33 PM EDT [facility] Calcium 9.4 8.5 - 10.5 mg/dL LAB CHEMISTRY METHOD 08/25/2025 3:33 PM EDT [facility] Blood Venous blood specimen / Unknown Venipuncture / Unknown 08/25/2025 10:02 AM EDT 08/25/2025 10:02 AM EDT Deisi Hicks NP LAB BLOOD ORDERABLES Final Res ult [facility]) [facility] [address] [place] [address], * XR Shoulder 2+ Views bilat (08/25/2025 [...] Watts MD IMG XR PROCEDURES Final Result * XR Chest 2 Views (06/24/2025 12:20 PM EDT) Anatomical Region Laterality Modality Body Radiographic Shira ging 06/24/2025 3:36 PM EDT Impressions 06/24/2025 3:37 PM EDT No acute pulmonary pathology. -------- FINAL REPORT -------- Dictated By: Sindi Chinchilla Dictated Date: 06/24/2025 15:36 ET Assigned Physician: Sindi Chinchilla Reviewed and Electronically Signed By: Sindi Chinchilla Signed Date: 06/24/2025 15:37 ET Workstation ID: [id number] Transcribed By: Self Edit Transcribed Date: 06/24/2025 15:36 ET Narrative 06/24/2025 3:37 PM EDT CHEST, TWO VIEWS HISTORY: Dyspnea. TECHNIQUE: Frontal and lateral views of the chest. PRIOR: None. FINDINGS: The lungs are clear. No pleural effusion is seen. No pneumothorax is seen. The cardiac diameter is within normal limits. No acute or aggressive appearing bony abnormalities are seen. There is mild curvature and degenerative change of the spine. Procedure Note Sindi Chinchilla MD - 06/24/2025 CHEST, TWO VIEWS HISTORY: Dyspnea. TECHNIQUE: Frontal and lateral views of the chest. PRIOR: None. FINDINGS: The lungs are clear. No pleural effusion is seen. No pneumothorax is seen. The cardiac diameter is within normal limits. No acute or aggressive appearing bony abnormalities are seen. There ismild curvature and degenerative change of the spine. IMPRESSION: No acute pulmonary pathology. -------- FINAL REPORT -------- Dictated By: Sindi Chinchilla Dictated Date: 06/24/2025 15:36 ET Assigned Physician: Sindi Chinchilla Reviewed and Electronically Signed By: Sindi Chinchilla Signed Date: 06/24/2025 15:37 ET Workstation ID: [id number] Transcribed By: Self Edit Transcribed Date: 06/24/2025 15:36 ET Nicky Pandey MD IMG XR PROCEDURES Final Result * Thyroid stimulating hormone with reflex to free t4 and free t3 (06/17/2025 11:24 AM EDT) TSH 2.74 0.40 - 4.00 mcIU/mL LAB CHEMISTRY METHOD 06/17/2025 4:18 PM EDT [facility] Blood Venous blood specimen / Unknown Venipuncture / Unknown 06/17/2025 11:24 AM EDT 06/17/2025 11:24 AM EDT Nicky Pandey MD LAB BLOOD ORDERABLES Final Resul t Performing Organization Address City/[facility]/ZIP Co de Phone Number [facility] [address] [place] [address], * Magnesium (06/17/2025 11:24 AM EDT) Magnesium 2.4 1.9 - 2.6 mg/dL LAB CHEMISTRY METHOD 06/17/2025 3:08 PM EDT [facility] Blood Venous blood specimen / Unknown Venipuncture / Unknown 06/17/2025 11:24 AM EDT 06/17/2025 11:24 AM EDT Miroslava Lima NP LAB BLOOD ORDERABLES Final Result Performing Organization Address City/[facility]/ZIP Co de Phone Number [facility] [address] [place] [address], [place] [phone] * (ABNORMAL) Comprehensive metabolic panel (06/17/2025 11:24 AM EDT) Sodium 138 133 - 145 mmol/L LAB CHEMISTRY METHOD 06/17/2025 3:17 PM EDT [facility] Potassium 4.4 3.5 - 5.5 mmol/L LAB CHEMISTRY METHOD 06/17/2025 3:17 PM EDT [facility] Chloride 107 96 - 110 mmol/L LAB CHEMISTRY METHOD 06/17/2025 3:17 PM EDT [facility] CO2 26 21 - 32 mmol/L LAB CHEMISTRY METHOD 06/17/2025 3:17 PM EDT [facility] Anion Gap 5 3 - 11 LAB CHEMISTRY METHOD 06/17/2025 3:17 PM EDT [facility] Glucose 118(H) 70 - 100 mg/dL LAB CHEMISTRY METHOD 06/17/2025 3:17 PM [facility] BUN 15 5 - 25 mg/dL LAB CHEMISTRY METHOD 06/17/2025 3:17 PM [facility] Creatinine 1.14(H) 0.50 - 1.10 mg/dL LAB CHEMISTRY METHOD 06/17/2025 3:17 PM [facility] eGFR 53(L) >=60 mL/min/1. 73m2 LAB CHEMISTRY METHOD 06/17/2025 3:17 PM [facility] Comment:Calculation based on the Chronic Kidney Disease Epidemiology Collaboration (CKD-EPI) equation refit without adjustment for race. BUN/Creatinine Ratio 13.2 LAB CHEMISTRY METHOD 06/17/2025 3:17 PM [facility] Calcium 9.3 8.5 - 10.5 mg/dL LAB CHEMISTRY METHOD 06/17/2025 3:17 PM [facility] AST (SGOT) 14 10 - 42 unit/L LAB CHEMISTRY METHOD 06/17/2025 3:17 PM [facility] ALT (SGPT) 16 10 - 60 unit/L LAB CHEMISTRY METHOD 06/17/2025 3:17 PM [facility] Alkaline Phosphatase 125(H) 42 - 121 unit/L LAB CHEMISTRY METHOD 06/17/2025 3:17 PM [facility] Total Protein 7.2 6.0 - 8.0 g/dL LAB CHEMISTRY METHOD 06/17/2025 3:17 PM [facility] Albumin 3.9 3.2 - 5.0 g/dL LAB CHEMISTRY METHOD 06/17/2025 3:17 PM [facility] Total Bilirubin 0.6 0.0 - 1.4 mg/dL LAB CHEMISTRY METHOD 06/17/2025 3:17 PM [facility] Blood Venous blood specimen / Unknown Venipuncture / Unknown 06/17/2025 11:24 AM EDT 06/17/2025 11:24 AM EDT Miroslava Lima BULB ASSEMBLER LAB BLOOD ORDERABLES Final Result [facility] [address] [place] [address], * Vascular US duplex lower extremity venous insufficiency bilateral (06/11/2025 10:22 AM EDT) Right GSK aleshia 0.37 cm CV VAS LAB Right GSDC aleshia 0.33 cm CV VAS LAB Right GSMT aleshia 0.43 cm CV VAS LAB Right GSPC aleshia 0.42 cm CV VAS LAB Right GSPT aleshia 0.55 cm CV VAS LAB Right SFJ Diameter 0.69 cm CV VAS LAB Right SSMC aleshia 0.20 cm CV VAS LAB Right SSPC aleshia 0.30 cm CV VAS LAB Left fem mid reflux 789 ms CV VAS LAB Left GSK aleshia 0.39 cm CV VAS LAB Left GSDC aleshia 0.29 cm CV VAS LAB Left GSMT aleshia 0.38 cm CV VAS LAB Left GSPC aleshia 0.37 cm CV VAS LAB Left GSPT aleshia 0.49 cm CV VAS LAB Left SFJ Diameter 0.69 cm CV VAS LAB Left SSMC aleshia 0.29 cm CV VAS LAB Left SSPC aleshia 0.48 cm CV VAS LAB Right com fem reflux 478 ms CV VAS LAB Right GSK reflux 1,406 ms CV VAS LAB Right GSPC reflux 822 ms CV VAS LAB Left SSMC reflux 733 ms CV VAS LAB Anatomical Region Laterality Modality Vascular, Abdomen Ultrasound Narrative 06/12/2025 7:14 PM EDT Right: 1. The right lower extremity veins are compressible and there is no evidence of DVT in the right lower extremity venous system. 2. The GSV has clinically significant reflux of 1.4 seconds at the level of right knee, 0.8 seconds at the right upper calf. 3. The SSV has no significant reflux. 4. The right common femoral vein has mild reflux of 0.4 seconds. Left: 1. The left lower extremity veins are compressible and there is no evidence of DVT in the left lower extremity venous system. 2. The GSV has no significant reflux. 3. The SSV has clinically significant reflux of 0.7 seconds at the mid SSV. 4. The mid femoral vein has mild reflux of 0.7 seconds. Right Lower Venous No evidence of deep vein thrombosis in the common femoral, deep femoral, proximal femoral, mid femoral, distal femoral, popliteal, greater saphenous, small saphenous, posterior tibial and peroneal veins of the right leg. The vessels showed compressibility. Interrogation showed phasic and spontaneous Doppler signals. Right Venous Insufficiency Duplex The exam was performed with the patient in reverse Trendelenburg. Left Lower Venous No evidence of deep vein thrombosis in the common femoral, deep femoral, proximal femoral, mid femoral, distal femoral, popliteal, greater saphenous, small saphenous, posterior tibial and peroneal veins of the left leg. The vessels showed compressibility. Interrogation showed phasic and spontaneous Doppler signals. Left Venous Insufficiency Duplex The exam was performed with the patient in reverse trendelenburg. Industrial Waste Inspector Details A jc scale, color and doppler analysis ultrasound was performed. During the study longitudinal and transverse views were obtained. Pulsed wave doppler was performed. us Aster INMAN CV VASCULAR PROCEDURES Final R esult * BD Bone Density DXA Axial Skeleton (12/29/2024 3:48 PM EST) Anatomical Region Laterality Modality Wrist, Hip, L-spine Bone Densito metry 12/30/2024 4:53 PM EST Impressions 12/30/2024 5:06 PM EST Impression: Osteopenia by WHO criteria. This patient has a 5.6% risk of major osteoporotic fracture and a 0.7% risk of hip fracture over the next 10 years. (World Health Organization Fracture Risk Assessment) [facility] Department of Internal Medicine recommends using National Osteoporosis Foundation (NOF) guidelines in treatment decisions related to osteoporosis. NOF guidelines suggest considering treatment for postmenopausal women and men aged 50 or older presenting with the following: History of hip or vertebral fracture. T-score = -2.5 (DXA) at the femoral neck, total hip, or spine, after appropriate evaluation to exclude secondary causes. Low bone mass (T-score between -1.0 and -2.5 at the femoral neck or spine) AND a 10-year probability of a hip fracture = 3% OR a 10-year probability of a major osteoporosis-related fracture = 20% based on the [place]-adapted WHO algorithm Please note that all treatment decisions require clinical judgment and consideration of individual patient factors, including patient preferences, co-morbidities, previous drug use, risk factors not captured in the FRAX model (e.g., frailty, falls, vitamin D deficiency, increased bone turnover, interval significant decline in bone density) and possible under- or over-estimation of fracture risk by FRAX. Optional alternative screening schedule based on jonathan Shearer., [facility] December 14, 2011 for patients with osteopenia (based on hip BMD T-score) is as follows: * advanced osteopenia (T scores -2.00 to -2.49), BMD testing every year * moderate osteopenia (T scores -1.50 to -1.99), BMD testing every 5 years mild osteopenia or normal BMD (T scores -1.50 and higher), BMD testing every 15 years -------- FINAL REPORT -------- Dictated By: Nancie Nelson Dictated Date: 12/30/2024 16:53 ET Assigned Physician: Nancie Nelson Reviewed and Electronically Signed By: Nancie Nelson Signed Date: 12/30/2024 17:06 ET Workstation ID: [id number] Transcribed By: Self Edit Transcribed Date: 12/30/2024 16:53 ET Narrative 12/30/2024 5:06 PM EST BONE DENSITY (DEXA) Lumbar Spine T-score is -2.1. (SD relative to 20-29 y/o adult) Z-score is -0.9. (SD relative to age matched peers) This is considered osteopenia by WHO criteria. Left Hip T-score is -1.5. Z-score is -0.6. This is considered osteopenia by WHO criteria. Comparison exam(s): Not available. Confidence level is +/-95%. Procedure Note Nancie Nelson MD - 12/30/2024 BONE DENSITY (DEXA) Lumbar Spine T-score is -2.1. (SD relative to 20-29 y/o adult) Z-score is -0.9. (SD relative to age matched peers) This is considered osteopenia by WHO criteria. Left Hip T-score is -1.5. Z-score is -0.6. This is considered osteopenia by WHO criteria. Comparison exam(s): Not available. Confidence level is +/-95%. IMPRESSION: Impression: Osteopenia by WHO criteria. This patient has a 5.6% risk of majorosteoporotic fracture and a 0.7% risk of hip fracture over the next 10years. (World Health Organization Fracture Risk Assessment) [facility] Department of Internal Medicine recommendsusing National Osteoporosis Foundation (NOF) guidelines in treatmentdecisions related to osteoporosis. NOF guidelines suggest consideringtreatment for postmenopausal women and men aged 50 or older presentingwith the following: History of hip or vertebral fracture. T-score = -2.5 (DXA) at the femoral neck, total hip, or spine, afterappropriate evaluation to exclude secondary causes. Low bone mass (T-score between -1.0 and -2.5 at the femoral neck or spine)AND a 10-year probability of a hip fracture = 3% OR a 10-year probabilityof a major osteoporosis-related fracture = 20% based on the [place]-adapted WHOalgorithm Please note that all treatment decisions require clinical judgment andconsideration of individual patient factors, including patientpreferences, co-morbidities, previous drug use, risk factors not capturedin the FRAX model (e.g., frailty, falls, vitamin D deficiency, increasedbone turnover, interval significant decline in bone density) and possibleunder- or over-estimation of fracture risk by FRAX. Optional alternative screening schedule based on jonathan Shearer., NEJJanuary 2011 for patients with osteopenia (based on hip BMD T-score)is as follows: * advanced osteopenia (T scores -2.00 to -2.49), BMD testing every year * moderate osteopenia (T scores -1.50 to -1.99), BMD testing every 5years mild osteopenia or normal BMD (T scores -1.50 and higher), BMD testingevery 15 years -------- FINAL REPORT -------- Dictated By: Nancie Nelson Dictated Date: 12/30/2024 16:53 ET Assigned Physician: Nancie Nelson Reviewed and Electronically Signed By: Nancie Nelson Signed Date: 12/30/2024 17:06 ET Workstation ID: [id number] Transcribed By: Self Edit Transcribed Date: 12/30/2024 16:53 ET Adolph Butt MD IMG DXA PROCEDURES Final Result * MG Mammo Digital Screening w Charlie bilat (12/29/2024 2:46 PM EST) Anatomical Region Laterality Modality Breast Bilateral Mammography 12/29/2024 5:02 PM EST Impressions 12/29/2024 5:05 PM EST No mammographic evidence for malignancy. BI-RADS CATEGORY: 1 - NEGATIVE RECOMMENDATION: Screening bilateral mammogram is recommended in 1 year. Mammo Location: [facility], [address] [place] [address], [id number], . -------- FINAL REPORT -------- Dictated By: Nancie Nelson Dictated Date: 12/29/2024 17:02 ET Assigned Physician: Nancie Nelson Reviewed and Electronically Signed By: Nancie Nelson Signed Date: 12/29/2024 17:05 ET Workstation ID: [id number] Transcribed By: Self Edit Transcribed Date: 12/29/2024 17:02 ET Narrative 12/29/2024 5:05 PM EST Bilateral screening mammogram. CLINICAL: 69 years old, Female, routine annual exam. COMPARISON: TECHNIQUE: Bilateral MLO and CC views were obtained digitally with 2 D C views and 3-D mammogram (digital breast tomosynthesis). Computer-aided detection was utilized in evaluation of this exam (CAD). FINDINGS: There is no evidence of suspicious mass or architectural distortion. No worrisome calcifications are evident. There has been no significant change from prior exam(s). BREAST DENSITY: B - There are scattered areas of fibroglandular density. Procedure Note Nancie Nelson MD - 12/29/2024 Bilateral screening mammogram. CLINICAL: 69 years old, Female, routine annual exam. COMPARISON: TECHNIQUE: Bilateral MLO and CC views were obtained digitally with 2 D Cviews and 3-D mammogram (digital breast tomosynthesis). Computer-aideddetection was utilized in evaluation of this exam (CAD). FINDINGS: There is no evidence of suspicious mass or architectural distortion. Noworrisome calcifications are evident. There has been no significantchange from prior exam(s). BREAST DENSITY: B - There are scattered areas of fibroglandular density. IMPRESSION: No mammographic evidence for malignancy. BI-RADS CATEGORY: 1 - NEGATIVE RECOMMENDATION: Screening bilateral mammogram is recommended in 1 year. Mammo Location: [facility], [address] [place] [address], [id number], . -------- FINAL REPORT -------- Dictated By: Nancie Nelson Dictated Date: 12/29/2024 17:02 ET Assigned Physician: Nancie Nelson Reviewed and Electronically Signed By: Nancie Nelson Signed Date: 12/29/2024 17:05 ET Workstation ID: [id number] Transcribed By: Self Edit Transcribed Date: 12/29/2024 17:02 ET Result [facility] Adolph Butt MD IM BI PROCEDURES Final Result * External Diabetic Retina Eye Exam Report (09/29/2024) Anatomical Region Laterality Modality Ultrasound Provider [place] On[employer] IMG US PROCEDURES Final Result * Hemoglobin A1c (08/08/2024) Hemoglobin A1C 6.1 <=6.5 % Blood Venous blood specimen / Unknown Result [facility] Historical Provider LAB BLOOD ORDERABLES Geraldine l Result * Depression Screening (07/18/2024) Depression Screening Abstracted Result [facility] Historical Provider HEALTH MAINTENANCE Final Result * Diabetes Foot Exam (07/18/2024) [facility] Diabetes: Annual Foot Exam Abstracted [facility] Provider HEALTH MAINTENANCE Final Result * Urine Albumin Creatinine Ratio (04/30/2024) [facility] Urine Albumin Creatinine Ratio Abstracted [facility] HEALTH MAINTENANCE Final Result * Falls Risk Assessment (03/19/2024) [facility] Falls Risk Assessment Abstracted Result [facility] HEALTH MAINTENANCE Final Result * Hepatitis C Screening (03/19/2024) [facility] Hepatitis C Screening Abstracted Result [facility] HEALTH MAINTENANCE Final Result * Lipid panel (03/19/2024) [facility] LDL/HDL Ratio 2 0 - 4 Triglycerides 106 0 - 150 mg/dL Cholesterol 151 0 - 200 mg/dL HDL 68 >=40 mg/dL LDL Cholesterol 62 0 - 100 mg/dL Blood Venous blood specimen / Unknown Result [facility] LAB BLOOD ORDERABLES Geraldine l Result * Colonoscopy (11/18/2014) [facility] Colonoscopy No interpretation , Abstracted Anatomical Region Laterality Modality Other Result [facility] Provider HEALTH MAINTENANCE Final Result from Last 3 Months or Most Recently Relevant to Health Maintenance Insurance [employer] MEDICARE ADVANTAGE Care Teams Web[employer] Process Server Developer Relationship Specialty Start Date End Date Adolph Butt MD [address] [place] [phone] PCP - General 02/11/24
--- OUTSIDE RECORDS SUMMARY | 2025-08-28 11:28 | XMS_ITS | Encounter Summary ---
Author Organization [employer] Address [address] [place] [address] Support Name Relationship Address Phone Amanda White Daughter [address] [place] [address] Care Team Providers Care Hat Trimmer Name Role Phone Adolph Butt MD Primary Care Provider [phone] Encounter Details Date Type Department Care Team (Late st Contact Info) Description 08/25/2025 Results Follow-Up [facility] [address] [place] [address] Dr Harris [address] [place] [phone] Deisi Hicks NP [address] [place] [address] Dr Copeland [address] [place] [phone] Social History Tobacco Use Types Packs/Day Years [...] care for your loved ones. For example, children's tutor nursery or elderly care for an older adult? [...] PM EST documented as of this encounter Plan of Treatment Upcoming Encounters Date Type Department Care Team (Late st Contact Info) Description 09/02/2025 11:15 AM EDT Office Visit Orthopedic Surgery - [address] [place] [phone] Prasanna Watts MD [address] [place] [address] 09/04/2025 9:30 AM EDT Office Visit Vascular Surgery - [place] [address] [place] [phone] Aster Mckeon PA [address] [facility] [address] [place] [address] 09/17/2025 9:00 AM EDT Nutrition Internal Medicine - [place] [address] [phone] [place] [phone] 09/17/2025 10:30 AM EDT Office Visit Internal Medicine - [place] [address] [phone] Adolph Butt MD [address] [phone] 10/16/2025 9:10 AM EST Office Visit [facility] [address] [place] [phone] Miroslava Lima NP [address] [place] [address] [address] [place] [phone] 03/29/2026 8:45 AM EDT Office Visit Pulmonology - [place] [address] [phone] Nicky Pandey MD [address] [phone] documented as of this encounter Visit Diagnoses Not on filedocumented in this encounter Additional Health Concerns Assessment Noted Time PHQ-9 Depression Total Score: 0 03/17/20 25 7:50 AM EDT documented as of this encounter Care Teams Hat Trimmer Relationship Specialty Start Date End Date Adolph Butt MD [address] [place] [phone] PCP - General 02/11/24 documented as of this encounter
--- OUTSIDE RECORDS SUMMARY | 2025-08-28 11:28 | XMS_ITS | Clinical Summary ---
Author Organization [facility] Address [address] [place] [address] Care Team Providers Care Locks Tender Name Role Phone Sonny Whitaker MD Primary Care Provider [phone] Allergies Active Allergy Reactions Criticality Noted Date Comments Adhesive Tape 06/15/2021 Latex 09/03/2017 Penicillins Rash Low 09/03/2017 Shellfish Rash Low 09/03/2017 Medications Medication Sig Dispensed Refills Start Date End Date Status gabapentin (NEURONTIN) 300 MG capsule Take 300 mg by mouth 2 (two) times a day. 1 08/15/2017 Active Lavender Oil OIL by Does not apply route. 0 Active Kelley Oil OIL by Does not apply route. 0 Active raNITIdine (ZANTAC) 150 MG tablet TAKE 1 TABLET BY MOUTH AT BEDTIME 1 12/19/2017 Active cetirizine (ZYRTEC) 10 MG tablet TAKE 1 TABLET BY MOUTH EVERY DAY 0 12/31/2017 Active cyclobenzaprine (FLEXERIL) 5 MG tablet TAKE 1 TABLET BY MOUTH EVERY NIGHT AT BEDTIME NEEDED FOR MUSCLE SPASMS 30 tablet 0 05/13/2018 Active clindamycin (CLEOCIN) 300 MG capsule TAKE 2 CAPSULES BY MOUTH 1 HOUR BEFORE DENTAL APPOINTMENT 10 capsule 3 09/18/2018 Active etodolac (LODINE) 400 MG tablet Take 1 tablet (400 mg total) by mouth 2 (two) times a day. 60 tablet 0 12/15/2019 Active albuterol 108 (90 Base) MCG/ACT inhaler Inhale 2 puffs into the lungs. 0 11/23/2020 Active ibuprofen 800 MG tablet Take 1 tablet by mouth every 8 (eight) hours as needed. 0 02/22/2021 Active loperamide (IMODIUM) 2 MG capsule Take 2 mg by mouth every 6 (six) hours. 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 ree arc) 09/03/2017 Family History Medical History Relation Name Comments Seizures Brother Diabetes Father Heart disease Father Hypertension Father Stroke Father Arthritis Mother Diabetes Mother Hypertension Mother Stroke Mother Relation Name Status Comments Brother Father Mother Social History Tobacco Use Types Packs/Day Years Used Date Smoking Tobacco: Never Smokeless Tobacco: Never Alcohol Use Standard Drinks/Week Comments No 0 (1 standard drink = 0.6 oz pur e alcohol) Sex and Gender Information Value Date Recorded Sex Assigned at Not on file Gender Identity Not on file Sexual Orientation Not on file Job Start Date Occupation Industry Not on file Not on file Not on file Last Filed Vital Signs Vital Sign Reading Time Taken Comments Blood Pressure 128/83 08/06/2018 2:09 PM EDT Pulse 83 11/15/2019 1:57 PM EST Temperature - - Respiratory Rate - - Oxygen Saturation 97% 11/15/2019 1:57 PM EST Inhaled Oxygen Concentration - - Weight 113.4 kg (250 lb) 10/11/2021 1:52 PM EST Height 152.4 cm (5') 10/11/2021 1:52 PM EST Body Mass Index 48.82 10/11/2021 1:52 PM EST Plan of Treatment Health Maintenance Due Date Last Done Comments Hepatitis C Screening 1957 COVID-19 Vaccine (#1) 1957 Depression Screening 1969 BMI Counseling 1975 Preventative Health Evaluation 1975 DTap / Tdap / Td (1 - Tdap) 1976 Colon Cancer Screening (Colonoscopy) 2002 Breast Cancer Screening (Mammogram) 2007 Shingrix-Zoster Vaccine (1 of 2) 2007 Fall Risk Assessment 2022 Osteoporosis Screening (DEXA Scan) 2022 Pneumococcal Vaccine (1 of 1 - PCV) 2022 Influenza Vaccine (#1) 2025 RSV Adult > 60+ Yrs or Pregn ant (1 - 1-dose 75+ series) 2032 Hepatitis B Vaccines Aged Out No long er eligible based on patient's age to complete this topic RSV Ped < 20 months Aged Out No longe r eligible based on patient's age to complete this topic Care Teams Locks Tender Relationship Specialty Start Date End Date Sonny Whitaker MD [address] [place] [address] [place] [address] PCP - General Internal Medicine 02/23/22
== END 2025-08-28 12:22 | disposition home or self-care (01) ==
PROVIDERS: PCP Internal Medicine; Visit Provider Nurse Practitioner Family
DX: L03.113 Cellulitis of right upper limb (principal); T63.484A Toxic effect of venom of other arthropod, undetermined, initial encounter

== ENCOUNTER → 2025-08-28 10:32 | Outpatient (BNVA) | payer MEDICARE, SELFPAY | PROVIDERS: PCP Internal Medicine; Visit Provider Nurse Practitioner Family | DX: L03.113 Cellulitis of right upper limb (principal); T63.481A Toxic effect of venom of other arthropod, accidental (unintentional), initial encounter; T63.441A Toxic effect of venom of bees, accidental (unintentional), initial encounter; Y92.9 Unspecified place or not applicable | CPT/HCPCS: 99212 ==

== ENCOUNTER 2025-09-26 10:55 | Outpatient (AMB) | payer MEDICARE, SELFPAY ==
--- OUTSIDE RECORDS SUMMARY | 2025-09-24 11:20 | XMS_ITS | Encounter Summary ---
Author Organization [place] [address] Support Name Relationship Address Phone Amanda White Daughter [address] [place] [address] Care Team Providers Care Canopy Stringer Name Role Phone Adolph Butt MD Primary Care Provider [phone] Encounter Details Date Type Department Care Team (Late st Contact Info) Description 09/24/2025 11:20 AM EDT Lab Draw Station - [address] [phone] Medicare annual wellness visit, subsequent; Type 2 diabetes mellitus without complication, without long-term current use of insulin (CMS/HCC V24, CMS/HCC V28); Other fatigue; Vitamin D deficiency; Dyslipidemia Social History Tobacco Use Types Packs/Day Years Used Date Smoking Tobacco: Never Smokeless Tobacco: Never Alcohol Use Standard Drinks/Week Comments No 0 (1 standard drink = 0.6 oz pur e alcohol) Housing Instability Answer Date Recorde d Are you worried that in the next 2 months you may not have stable housing? No 09/17/2025 Food Access & Nutrition Answer Date Rec orded Do you have access to a vari ety of food including fruits and vegetables? No 09/17/2025 Access to Healthcare Answer Date Record ed Within the last 3 months, ho w many times did you visit the emergency department for your medical care? 0 09/11/2025 Health Literacy Answer Date Recorded How often do you need to hav e someone help you when you read instructions, pamphlets, or other written material from your doctor or pharmacy? Never 09/17/2025 Caregiver: How often do you need to have someone help you when you read instructions, pamphlets, or other written material from your doctor or pharmacy? Not on file 09/17/2025 Financial Risk Answer Date Recorded How hard is it for you to pa y for the very basics like food, housing, medical care, and air conditioning / heating? Not very hard 09/17/2025 Transportation Answer Date Recorded Has the lack of transportati on kept you from meetings, work, or from getting things needed for daily living? No Has the lack of transportati on kept you from medical appointments or from getting medications? No 09/17/2025 Social Isolation Answer Date Recorded How often do you feel lonely or isolated from th ose around you? Never 09/17/2025 Food Risk Answer Date Recorded Within the past 12 months we worried whether our food would run out before we got money to buy more. Never true 09/17/2025 Within the past 12 months th e food we bought just didn't last and we didn't have money to get more. Never true 09/17/2025 Dependent Care Answer Date Recorded Do you need help finding or paying for care for your loved ones. For example, children's lunchroom supervisor or elderly care for an older adult? No 09/17/2025 Education Answer Date Recorded Do you think completing more education or training, like finishing a GED, going to college, or learning a trade, would be helpful for you? No 09/17/2025 Employment and Income Answer Date Recor ded During the last four weeks, have you been actively looking for work? No 09/17/2025 Living Situation Answer Date Recorded What is your living situation? Unrecognized valu e 09/17/2025 Comments No Sex and Gender Information Value Date Recorded Sex Assigned at Female 10/07/2024 4:41 PM EST Legal Sex Female 11:31 PM EST Gender Identity Female 10/07/2024 4:41 PM EST Sexual Orientation Straight 10/07/2024 4: 41 PM EST documented as of this encounter Plan of Treatment Upcoming Encounters Date Type Department Care Team ([facility] Contact Info) Description 10/06/2025 8:30 AM EST Evaluation Outpatient Rehabilitation [address] [phone] Umer Smalls, PT 10/16/2025 9:10 AM EST Office Visit [facility] [address] [place] [phone] Miroslava Lima, YOHANA [address] [place] [address] Dr Copeland [address] [place] [phone] 03/19/2026 9:00 AM EDT Nutrition Internal Medicine - [place] [address] [phone] Savita De La Rosa, RD [address] [place] [phone] 03/19/2026 10:30 AM EDT Office Visit Internal Medicine - [address] [phone] Adolph Butt MD [address] [place] [phone] 03/29/2026 8:45 AM EDT Office Visit Pulmonology - [address] [phone] Nicky Pandey MD [address] [place] [phone] documented as of this encounter Procedures Procedure Name Priority Date/Time Associated Diagnosis Comments MICROALBUMIN CREATININE URINE RATIO Routine 09/24/2025 11:29 AM EDT Medicare annual wellness visit, subsequent Type 2 diabetes mellitus without complication, without long-term current use of insulin (CMS/[facility] V24, CMS/[facility] V28) Other fatigue Vitamin D deficiency Dyslipidemia documented in this encounter Results * Microalbumin creatinine urine ratio (09/24/2025 11:29 AM EDT) Creatinine, Urine 107.0 mg/dL LAB CHEMISTRY METHOD 09/24/2025 3:58 PM EDT [facility] Microalb, Ur 24.8 0.0 - 29.0 mg/L LAB CHEMISTRY METHOD 09/24/2025 3:58 PM EDT [facility] Microalb/Creat Ratio 23 <30 mg/g creat LAB CHEMISTRY METHOD 09/24/2025 3:58 PM EDT [facility] Urine Urine specimen obtained by clean catch procedure / Unknown Non-blood Collection / Unknown 09/24/2025 11:29 AM EDT 09/24/2025 11:29 AM EDT Adolph Butt MD LAB URINE ORDERABLES Final Resul t [facility] ([facility] [address] [place] [address], documented in this encounter Visit Diagnoses Diagnosis Medicare annual wellness visit, subsequent Type 2 diabetes mellitus without complication, without long-term current use of insulin (CMS/[facility] V24, CMS/[facility] V28) Other fatigue Vitamin D deficiency Dyslipidemia Other and unspecified hyperlipidemia documented in this encounter Additional Health Concerns Assessment Noted Time PHQ-9 Depression Total Score: 0 09/17/20 25 10:25 AM EDT A fall risk assessment has been complete d for the patient 09/17/2025 10:57 AM EDT documented as of this encounter Care Teams Canopy Stringer Relationship Specialty Start Date End Date Adolph Butt MD [address] [phone] PCP - General 02/11/24 documented as of this encounter
--- OUTSIDE RECORDS SUMMARY | 2025-09-26 10:57 | XMS_ITS | Patient Health Record ---
Demographics Address [address] [place] [address] Mobile Email Address Preferred Language en Marital Status unmarried Congregation Affiliation Unknown Race Black or Padmini rican Ethnic Group Unknown Author [facility] Address [address] [place] [address] Support Name Relationship Address Phone April Whiteerie Emergency Contact [address] [place] [id number] Bruce Vieira Guarantor Unknown Care Team Providers Care Taxicab Dispatcher Name Role Phone Sonny Whitaker MD Primary Care Provider Unavailab Eva Mcdaniel Unavailable [phone] Allergies Allergen (clinical drug ingredient) Drug/Non Drug [...] Status Risk Notes Problem Peripheral venous insufficiency (80123400) Venous insufficiency (chronic) (peripheral) (I87.2) Active confirmed Problem Localized, primary osteoarthritis of the ankle and/or foot (684369135) Primary osteoarthritis, right ankle and foot (M19.071) Active confirmed Problem Localized, primary osteoarthritis of the ankle and/or foot (275304757) Primary osteoarthritis, left ankle and foot (M19.072) Active confirmed Problem Acquired hammer toe of right foot (3647499655702196) Other hammer toe(s) (acquired), right foot (M20.41) Active confirmed Problem Acquired hammer toe of left foot (6801121537376876) Other hammer toe(s) (acquired), left foot (M20.42) Active confirmed Plan Of Treatment No Information Insurance Providers Payer Name Payer Address Payer Phone Subscriber Number Group Number Insured Name Patient Relationship to Insured Coverage Start Date Coverage End Date Varinder Iverson [address] [place] [address] [id number] Bruce Vieira Self - patient is the insured Medical (General) History Medical History History ICD Code Arthritis Back,Hip,and Knee pain Headaches/Migraines Psoriasis/eczema Sciatica Measles Mumps Chicken pox Joint implants/screws Surgical History Surgery Date(Month/Year) rotator cuff, left 08/2012 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
--- OUTSIDE RECORDS SUMMARY | 2025-09-26 10:57 | XMS_ITS | Encounter Summary ---
Author Organization [facility] Address [address] [place] [address] Support Name Relationship Address Phone Amanda White Daughter [address] [place] [address] Care Team Providers Care Statistical Programmer Name Role Phone Adolph Butt MD Primary Care Provider Reason for Referral * Consultation (Routine) - Authorized Specialty Diagnoses / Procedures Referred By Remy pham Referred To Contact Podiatry / Orthopaedic Surgery Diagnoses Pes planus, unspecified laterality Adolph Butt MD [address] [place] [address] Phone: tel: fax: Orthopedic Surgery [facility] [address] [facility] [address] [place] [address] Phone: tel: fax: Referral ID Status Reason Start Date Expiration Date Visits Requested Visits Authorized [id number] Authorized Specialty Services Required 09/21/2026 12 12 Reason for Visit * Reason Onset Date Comments Referral Request( Podiatry) 09/17/2025 Encounter Details Date Type Department Care Team ([facility] st Contact Info) Description 09/17/2025 Telephone Internal Medicine [facility] 175 [facility] [address] [place] [address] Adolph Butt MD [address] [place] [address] Social History Tobacco Use Types Packs/Day Years [...] for your loved ones. For example, child psychology teacher or elderly care for an older adult? [...] as of this encounter Progress Notes * Adolph Butt MD - 09/21/2025 5:21 PM EDT Podiatry referral done * Kia Martínez MA - 09/21/2025 11:13 AM EDT Spoke to patient and she stated she needs it because she has diabetes and inflammation nerve on thebutton of her feet due to having flat feet. * Carolina Garcia - 09/18/2025 11:59 AM EDT Patient called and stated that she has diabetes and needs to follow a hardware technician because the personshe was seeing is no longer accepting her insurance. Cb# [phone] * Leif Lucas MA - 09/18/2025 9:34 AM EDT Called patient , no answer . Lvml to return call regarding providers question below. * Adolph Butt MD - 09/17/2025 5:11 PM EDT What is the reason/diagnosis that patient need podiatry referral? * Jose Prasad - 09/17/2025 11:18 AM EDT Patient Was seen by PCP and Forgot to advise that she needs a referral to podiatry. Please advise CB# [phone] documented in this encounter Plan of Treatment Upcoming Encounters Date Type Department Care Team (Late st Contact Info) Description 10/06/2025 8:30 AM EST Evaluation Outpatient Rehabilitation [address] [phone] Umer Smalls, PT 10/16/2025 9:10 AM EST Office Visit [facility] [address] [place] [phone] Miroslava Lima NP [address] [place] [address] Dr Copeland [address] [place] [phone] 03/19/2026 9:00 AM EDT Nutrition Internal Medicine - [address] [phone] Savita De La Rosa, RD [address] [place] [phone] 03/19/2026 10:30 AM EDT Office Visit Internal Medicine - [address] [phone] Adolph Butt MD [address] [place] [phone] 03/29/2026 8:45 AM EDT Office Visit Pulmonology - [address] [phone] Nicky Pandey MD [address] [place] [address] Scheduled Referrals Name Type Priority Associated Diagnoses Order Schedule Ambulatory referral to Podiatry Outpatient Referral Routine Pes planus, unspecified laterality 1 Occurrences starting 09/21/2025 until 09/17/2026 documented as of this encounter Visit Diagnoses Diagnosis Pes planus, unspecified laterality- Primary documented in this encounter Additional Health Concerns Assessment Noted Time PHQ-9 Depression Total Score: 0 09/17/20 25 10:25 AM EDT A fall risk assessment has been complete d for the patient 09/17/2025 10:57 AM EDT documented as of this encounter Care Teams Statistical Programmer Relationship Specialty Start Date End Date Adolph Butt MD [address] [place] [phone] PCP - General 02/11/24 documented as of this encounter
--- OUTSIDE RECORDS SUMMARY | 2025-09-26 10:57 | XMS_ITS | Data Portability ---
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 Shook back in 2021 with ongoing lingering symptoms of pain. She has evidence of glenohumeral arthritis with decreased range of motion we did discuss treatment options however she did opt for cortisone injection at today's visit. After verbal consent was granted. The procedure was carried on the left shoulder. She tolerated this well. Aftercare instructions were discussed in detail. Prior to leaving she states she had notable improvement. I would like to see her back in 3 months time for repeat clinical exam should her symptoms not improve or worsen she should contact my office. Patient was seen and evaluated by Lorenza Gilmore PA-C in indirect conjuction with Documenting Provider: Jake Gerardo MD . He/She agrees with history, physical examination, tests/diagnostic imaging, and treatment plan. Additional treatment plan discussed with the patient (only initiated if in boldface font) otherwise not applicable. Treatment may include the following; - Provider focused nonsteroidal anti-inflammatory regimen (discussed were the pros, cons, benefits and risks as well as any black box warnings) in patients over 60 years old they should be very cautious in taking these medications due to potential decreased kidney function and or elevated blood pressure. - Analgesic pain medication for pain suppression (discussed were the pros, cons, benefits and risks as well as any black box warnings) - The use of topical pain relieving medication were discussed - The use of ice to decrease inflammation and pain - The use of assistive ambulatory devices for ambulation and fall prevention - Formal specific guided physical therapy program (Deferred) I reviewed my findings at length with the patient today. We discussed the nature and etiology of this problem along with current treatment options. We discussed the expected course and outcomes and what to expect. We also discussed risks and benefits. All of their questions were answered today, and there was exhibited understanding and comprehension of all that was discussed. Time Spent: 10 minutes were spent reviewing previous imaging and charting. 10 minutes were spent obtaining patient history. 5 minutes were spent on physical exam. 5minutes were spent explaining diagnosis and assessment. Today's documentation was made using voice recognition software. This note may contain grammatical errors secondary to the software. Not available 09/19/2023 10:07:26 11/29/2023 11/29/2023 68-year-old female with bilateral shoulder pain. History examination and x-rays are consistent with osteoarthritis and rotator cuff tendinopathy. After discussion regarding treatment options she wishes to trial cortisone injection to the right shoulder. Please see the attached procedure note. She will also be provided a prescription for anti-inflammatory and an order for physical therapy. Recommended follow-up in a month or 2 with one of our shoulder specialist. Not available 11/29/2023 14:28:58 12/25/2023 12/25/2023 68-year-old female with history of left shoulder surgery by Dr. Shook back in 2021 with ongoing lingering symptoms of pain. She has had cortisone injections and PT which is making her symptoms worse. She has more weakness she has been taking ibuprofen which is no longer working. I will send her for a reMRI of the left shoulder to rule out rotator cuff tearing she has a follow-up appointment with Dr. Gerardo in December in the meantime she will like to rotator cuff protective measures she can continue with her current pain regimen. I do not recommend another cortisone injection until the MRI is complete. She agrees with this plan. Patient was seen and evaluated by Lorenza Gilmore PA-C in indirect conjuction with Documenting Provider: Jake Gerardo MD . He/She agrees with history, physical examination, tests/diagnostic imaging, and treatment plan. Additional treatment plan discussed with the patient (only initiated if in boldface font) otherwise not applicable. Treatment may include the following; - Provider focused nonsteroidal anti-inflammatory regimen (discussed were the pros, cons, benefits and risks as well as any black box warnings) in patients over 60 years old they should be very cautious in taking these medications due to potential decreased kidney function and or elevated blood pressure. - Analgesic pain medication for pain suppression (discussed were the pros, cons, benefits and risks as well as any black box warnings) - The use of topical pain relieving medication were discussed - The use of ice to decrease inflammation and pain - The use of assistive ambulatory devices for ambulation and fall prevention - Formal specific guided physical therapy program I reviewed my findings at length with the patient today. We discussed the nature and etiology of this problem along with current treatment options. We discussed the expected course and outcomes and what to expect. We also discussed risks and benefits. All of their questions were answered today, and there was exhibited understanding and comprehension of all that was discussed. Time Spent: 10 minutes were spent reviewing previous imaging and charting. 10 minutes were spent obtaining patient history. 5 minutes were spent on physical exam. 5minutes were spent explaining diagnosis and assessment. Today's documentation was made using voice recognition software. This note may contain grammatical errors secondary to the software. Not available 12/25/2023 09:33:18 02/25/2024 02/25/2024 Chronic left shoulder pain. History of a prior rotator cuff repair which appears intact on recent MRI imaging. I think she most likely has symptoms coming from her glenohumeral degenerative changes. I reviewed treatment options with her. We decided on trying a glenohumeral cortisone injection. She will continue home exercise program. She understands that long-term surgical management would be consideration of a shoulder replacement. She has a right knee replacement that she is not particularly pleased with so she has significant reservations about thinking about that type of intervention. She also was experiencing right shoulder pain. We will have her come back in 3 weeks for a formal assessment of the right shoulder and a recheck of the left shoulder to see how she is doing after the injection. Questions invited and answered. Greater than 30 minutes was spent with the encounter today, including face to face time with the patient, documentation, review of records/imaging if applicable, and coordination of care. PRIOR BK: 68-year-old female with history of left shoulder surgery by Dr. Boone fink in 2021 with ongoing lingering symptoms of pain. She has had cortisone injections and PT which is making her symptoms worse. She has more weakness she has been taking ibuprofen which is no longer working. I will send her for a reMRI of the left shoulder to rule out rotator cuff tearing she has a follow-up appointment with Dr. Gerardo in December in the meantime she will like to rotator cuff protective measures she can continue with her current pain regimen. I do not recommend another cortisone injection until the MRI is complete. She agrees with this plan. PRIOR BK: 68-year-old female with history of left shoulder surgery by Dr. Boone fink in 2021 with ongoing lingering symptoms of pain. She has evidence of glenohumeral arthritis with decreased range of motion we did discuss treatment options however she did opt for cortisone injection at today's visit. After verbal consent was granted. The procedure was carried on the left shoulder. She tolerated this well. Aftercare instructions were discussed in detail. Prior to leaving she states she had notable improvement. I would like to see her back in 3 months time for repeat clinical exam should her symptoms not improve or worsen she should contact my office. [email or web address] Not available 02/25/2024 12:56:37 04/24/2024 04/24/2024 Chronic bilatera l shoulder pain. She is frustrated with her condition. I did offer her physical therapy and/or a subacromial injection on the right side given her previous more favorable response however she is not particularly inclined toward either of these options. An MRI of the right shoulder was ordered back in December however there was issue with scheduling. She defers rescheduling this as she does not want to consider any surgery right now. Ultimately is going to live with things the way they are for now and will return in 2 months for repeat eval and further discussion, sooner if her concerns arise. Questions invited and answered. Patient verbalizes understanding and agreement with plan. PRIOR : Chronic left shoulder pain. History of a prior rotator cuff repair which appears intact on recent MRI imaging. I think she most likely has symptoms coming from her glenohumeral degenerative changes. I reviewed treatment options with her. We decided on trying a glenohumeral cortisone injection. She will continue home exercise program. She understands that long-term surgical management would be consideration of a shoulder replacement. She has a right knee replacement that she is not particularly pleased with so she has significant reservations about thinking about that type of intervention. She also was experiencing right shoulder pain. We will have her come back in 3 weeks for a formal assessment of the right shoulder and a recheck of the left shoulder to see how she is doing after the injection. Questions invited and answered. PRIOR BK: 68-year-old female with history of left shoulder surgery by Dr. Boone fink in 2021 with ongoing lingering symptoms of pain. She has had cortisone injections and PT which is making her symptoms worse. She has more weakness she has been taking ibuprofen which is no longer working. I will send her for a reMRI of the left shoulder to rule out rotator cuff tearing she has a follow-up appointment with Dr. Gerardo in December in the meantime she will like to rotator cuff protective measures she can continue with her current pain regimen. I do not recommend another cortisone injection until the MRI is complete. She agrees with this plan. PRIOR BK: 68-year-old female with history of left shoulder surgery by Dr. Boone fink in 2021 with ongoing lingering symptoms of pain. She has evidence of glenohumeral arthritis with decreased range of motion we did discuss treatment options however she did opt for cortisone injection at today's visit. After verbal consent was granted. The procedure was carried on the left shoulder. She tolerated this well. Aftercare instructions were discussed in detail. Prior to leaving she states she had notable improvement. I would like to see her back in 3 months time for repeat clinical exam should her symptoms not improve or worsen she should contact my office. [email or web address] Not available 05/01/2024 22:24:34 Plan of Treatment Reminders Order Date Submit Date Provider Last Modified By Organization Details Last Modified Time Details Appointments None recorded. Lab None recorded. Referral None recorded. Procedures None recorded. Surgeries None recorded. Imaging MRI, shoulder, w/o contrast - Prior left shoulder arthroscopy shoulder weakness despite formal physical therapy, cortisone injection and nonsteroida l anti-inflam matories for greater than 6 weeks rule out rotator cuff tear 2023 024 [email or web address] Not available 4 09:51:14 XR, shoulder, 2 or more view 2023 024 [email or web address] [facility], [address], [place], [address], 4 14:37:43 XR, shoulder, 2 or more view 2022 023 [facility], [address], [place], [address], 3 13:03:58 Medication Orders lidocaine (PF) 100 mg/5 mL (2 %) injection syringe 2023 024 [email or web address] [id number], [address] [place], [address], 4 11:09:23 triamcinolo ne acetonide 40 mg/mL suspension for injection 2023 024 [email or web address] [id number], [address] [place], [address], 4 11:09:23 meloxicam 15 mg tablet 2023 024 [email or web address] [id number], [address] [place], [address], 4 09:15:36 lidocaine (PF) 10 mg/mL (1 %) injection solution 2023 024 [email or web address] [id number], [address] [place], [address], 4 10:09:47 Kenalog 40 mg/mL suspension for injection 2023 024 [email or web address] [id number], [address] [place], [address], 4 10:09:44 Marcaine (PF) 0.5 % (5 mg/mL) injection solution 2023 [email or web address] [id number] [address] [place], [address], 4 10:09:49 Kenalog 40 mg/mL suspension for injection 2022 023 [id number] [address] [place], [address], 4 10:09:44 lidocaine (PF) 10 mg/mL (1 %) injection solution 2022 023 [id number] [address] [place], [address], 10:09:47 Patient TargetsNo targets recorded. Patient Instructions Encounter Date Encounter Id Patient Instructions Last Modified By Organization Details Last Modified Time 09/19/2023 [id number] You have been provided with a cortisone injection in order to reduce the pain and inflammation that you are experiencing. The injection consists of two medications. Cortisone (an anti-inflammatory that will take 48-72 hours to take effect) and Lidocaine (a numbing agent that will last 2-3 hours). Please note that not everyone will have a lasting response following the injection. PATIENT INSTRUCTIONS Once the Lidocaine wears off, you may have an increase in your pain. I recommend icing the affected area for 20 minutes 3-4 times per day. It is recommended that you refrain from any high level activities using the joint or limb that was injected for approximately 24-48 hours. Normal day-to-day activities are generally not a problem. POSSIBLE SIDE EFFECTS Individuals with dark complexions may experience some skin discoloration locally at the site of the injection. There is the possibility of an increase in discomfort within 48 hours following the injection. This is called kelsie jin . To help minimize the chances of this, please see the post-injection instructions above. There is a less than 1% chance of an infection. If you notice any signs of infection (redness, warmth, drainage, fever greater than 100 degrees) please call our office or contact us through the portal [facility]. Not available 09/19/2023 10:07:46 Moderate degenerative glenohumeral arthritis with subchondral sclerosis and osteophyte formation, sequelae for DCE acromioplasty. No acute bony abnormality. Not available 09/19/2023 09:29:49 11/29/2023 [id number] physical therapy * - Diagnosis: B RTC tendonitis Evaluate and treat as indicated to reduce pain and to improve mobility, range of motion, and function. Please teach a home exercise plan and incorporate PT into patient's exercise routine. 2-3 sessions weekly for 6 weeks. [email or web address] Not available 12/07/2023 08:17:24 Three-view x-ray study of right shoulder is obtained during today's office encounter. It shows some AC joint arthritis and mild glenohumeral joint arthritis. There is no evidence for fracture or dislocation. The humeral head is relatively well oriented to the glenoid with a reasonably well-preserved subacromial space. No abnormal calcifications at the region of the rotator cuff. Not available 11/29/2023 14:29:49 Reason for Referral None Reported. Results Created Date Observation Date Name Description Value Unit Range Abnormal Flag Note LastModifiedBy Organization Detail LastModifiedTime 01/08/20 24 01/05/2024 MRI, ania palomo, w/o contr ast No observ ation record ed. [email or web address] Not Available 09:51:14 Result Notes None recorded. Problems Name Problem SNOMED Code Status Onset Date Resolution Date Notes Provider Name and Address Organization Details Recorded Time Problem 63981521 Active No known active problems Not Available [facility] 5 23:22:47 Pain associate d with prosthesi s of knee joint 683155087 Active 2016 Painful total knee replaceme nt Not Available [facility] 5 23:22:46 Arthrofib rosis of right knee 16842846794 154045 Active 2016 Arthrofib rosis of knee joint, right (5 to 45 degree arc) Not Available [facility] 5 23:22:46 Severe obesity 37535747081 104 Active 2017 Class 3 severe obesity due to excess calories in adult Not Available [facility] 5 23:22:46 Tendiniti s of rotator cuff tendon 846191129 Active 2023 LORENZA HERNANDEZ PA-C [address], [place], [address] , [place] [facility] 4 14:23:59 Impingeme nt syndrome of left shoulder region 11696727417 9104 Active 2023 LORENZA GILMORE PA-C [address], [place], [address] , [place] [facility] 4 09:34:47 Impingeme nt syndrome of right shoulder region 52991442867 9102 Active 2023 LROENZA GILMORE PA-C [address], [place], [address] , [place] [facility] 4 07:46:56 Problem Notes None recorded. Procedures Surgical History Date Name Laterality Status Provider Name and Address Organization Details Recorded Time 02/25/20 24 SAB Shoulder GH Inj w/US completed Jake Gerardo MD [address], [place], [address], [place] [facility] 02/25/2024 10:26:31 11/29/19 24 MAYLIN Subacromial Shoulder Inj w/US completed LORENZA HERNANDEZ PA-C [address], [place], [address], [place] [facility] 11/29/2023 14:23:42 09/19/20 23 Shoulder Joint/Bursa Asp & Inj completed LORENZA GILMORE PA-C [address], [place], [address], [place] [facility] 09/19/2023 10:04:57 Total knee arthroplasty completed Caterina Cardenas [place] [facility] 03/06/2023 15:17:38 Shoulder Surgery completed Caterina Cardenas [place] [facility] 03/06/2023 15:17:53 Imaging Results None recorded. Procedure Notes None recorded. Medical Equipment None Reported. Allergies Allergen ID Allergen Name Allergen Category Reaction Reaction Severity Criticality Documentation Date Start Date Code Code System Note Provider Name and Address Organization Details Recorded Time 21514 aspirin medicatio n Not available Not available Not available 12/06/2023 1191 RxNorm Aster Borges null, [place] [facility] 4 11:34:19 35213 meloxicam medicatio n vomiting Not available low 12/06/2023 77321 RxNorm LORENZA HERNANDEZ PA-C [address], [place], [address], [place] [facility] 4 11:41:45 204 Product containin g penicilli n (product) medicatio n Not available Not available Not available 03/06/2023 89128 8001 SNOMED Caterina Cardenas null, [facility] 3 15:16:22 2045 adhesive tape environme nt,medica tion Not available Not available Not available 03/06/2023 Caterina Cardenas sarah, [place] [facility] 3 15:16:28 2046 shellfish derived food,medi cation Not available Not available Not available 03/06/2023 Caterina Cardenas sarah, [facility] 3 15:16:34 45040 latex environme nt,medica tion Not available Not available Not available 08/18/20252016 26170 91 RxNorm Not Available [facility] 5 01:16:39 Medications Name Sig Start Date Stop Date Status Note LastModified by Organization Details LastModified Time celecoxib 200 mg capsule Take 1 capsule (200 mg total) by mouth daily. 12/15 completed Not Available Not Available Not Available furosemide 40 mg tablet TAKE 1 TABLET BY MOUTH EVERY DAY active Not Available Not Available No t Available atorvastati n 40 mg tablet TAKE 1 TABLET BY MOUTH EVERY DAY active Not Available Not Available No t Available metformin 500 mg tablet TAKE 1 TABLET BY MOUTH TWICE A DAY WITH A MEAL active Not Available Not Available No t Available clindamycin HCl 300 mg capsule TAKE 2 CAPSULES (600 MG) BY ORAL ROUTE X1 DOSE, 1 HOUR BEFORE PROCEDURE FOR PREMEDICA TION 12/25 completed Not Available Not Available Not Available loperamide 2 mg capsule Take 2 mg by mouth every 6 (six) hours. 2020 active Not Available Not Available Not Avai lable cetirizine 10 mg tablet TAKE 1 TABLET BY MOUTH AT BEDTIME NEEDED FOR ALLERGIES . active Not Available Not Available No t Available azithromyci n 250 mg tablet TAKE 2 TABLETS BY MOUTH TODAY, THEN TAKE 1 TABLET DAILY FOR 4 DAYS 12/25 completed Not Available Not Available Not Available ibuprofen 800 mg tablet TAKE 1 TABLET BY MOUTH THREE TIMES A DAY WITH FOOD active Not Available Not Available No t Available meloxicam 15 mg tablet TAKE 1 TABLET EVERY DAY BY ORAL ROUTE NEEDED. 12/25 completed Not Available Not Available Not Available ondansetron HCl 4 mg tablet TAKE 1 TABLET BY MOUTH EVERY 8 HOURS NEEDED active Not Available Not Available No t Available prednisone 20 mg tablet TAKE 3 TABLETS BY MOUTH EVERY DAY 09/19 completed Not Available Not Available Not Available diphenoxyla te-atropine 2.5 mg-0.025 mg tablet TAKE ONE TABLET AFTER EACH LOOSE STOOL NO MORE THAN 6 PER DAY active Not Available Not Available No t Available ciprofloxac in 250 mg tablet TAKE 1 TABLET BY MOUTH TWICE A DAY 09/19 completed Not Available Not Available Not Available aspirin 81 mg tablet,thao yed release TAKE 1 TABLET BY MOUTH EVERY DAY active Not Available Not Available No t Available tramadol 50 mg tablet Take 50 mg by mouth 2 (two) times a day as needed for pain. 05/05 completed Not Available Not Available Not Available acetaminoph en 500 mg tablet TAKE 1 TABLET BY MOUTH EVERY 6 HOURS NEEDED FOR PAIN active Not Available Not Available No t Available oxycodone-a cetaminophe n 5 mg-325 mg tablet Take 1 to 2 tabs every 4 hours as needed for pain 05/05 completed Not Available Not Available Not Available benzonatate 100 mg capsule TAKE 1 CAPSULE BY MOUTH 3 TIMES A DAY FOR COUGH active Not Available Not Available No t Available triamcinolo ne acetonide 40 mg/mL suspension for injection Take 60 mg by injection route. 2023 active Not Available Not Available Not Avai lable pantoprazol e 40 mg tablet,thao yed release TAKE 1 TABLET BY MOUTH TWICE A DAY active Not Available Not Available No t Available methylpredn isolone acetate 40 mg/mL suspension for injection 01/31 completed Not Available Not Available Not Available ranitidine 150 mg tablet TAKE 1 TABLET BY MOUTH AT BEDTIME 2017 active Not Available Not Available Not Avai lable dexamethaso ne 4 mg tablet TAKE BY MOUTH 1 TABLET TWICE A DAY FOR 5 DAYS 09/19 completed Not Available Not Available Not Available gabapentin 300 mg capsule Take 300 mg by mouth 2 (two) times a day. 2016 active Not Available Not Available Not Avai lable etodolac 400 mg tablet Take 1 tablet (400 mg total) by mouth 2 (two) times a day. 2019 active Not Available Not Available Not Avai lable furosemide 20 mg tablet TAKE 2 TABLETS BY MOUTH TWICE A DAY FOR 1 WEEK, THEN 2 TABS EVERY DAY FOR 1 WEEK THEN 1 TAB DAILY active Not Available Not Available No t Available levofloxaci n 500 mg tablet TAKE 1 TABLET BY MOUTH EVERY DAY 09/19 completed Not Available Not Available Not Available albuterol sulfate HFA 90 mcg/actuati on aerosol inhaler INHALE 2 PUFFS EVERY 4 HOURS NEEDED FOR WHEEZING active Not Available Not Available No t Available betamethaso ne dipropionat e 0.05 % topical ointment PLEASE SEE ATTACHED FOR DETAILED DIRECTION S 12/25 completed Not Available Not Available Not Available fluticasone propionate 50 mcg/actuati on nasal spray,suspe nsion USE 1 SPRAY BY NASAL ROUTE 2 TIMES DAILY NEEDED FOR RHINITIS. active Not Available Not Available No t Available metformin ER 500 mg tablet,exte nded release 24 hr TAKE 1 TABLET BY MOUTH TWICE A DAY WITH MEALS active Not Available Not Available No t Available naproxen 500 mg tablet TAKE 1 TABLET BY MOUTH TWICE A DAY WITH FOOD active Not Available Not Available No t Available oxycodone 5 mg tablet TAKE 1-2 TABS EVERY 4 HOURS NEEDED FOR PAIN FOLLOWING YOUR LEFT SHOULDER SURGERY INS MAX 6/DAY 09/19 completed Not Available Not Available Not Available cyclobenzap rine 5 mg tablet TAKE 1 TABLET BY MOUTH EVERY NIGHT AT BEDTIME NEEDED FOR MUSCLE SPASMS 2017 active Not Available Not Available Not Avai lable Klor-Con M20 mEq tablet,exte nded release TAKE 1 TABLET BY MOUTH EVERY DAY active Not Available Not Available No t Available Marcaine (PF) 0.5 % (5 mg/mL) injection solution Take 4 mL by injection route. 02/24 completed Not Available Not Available Not Available sodium fluoride 1.1 % dental paste BRUSH YOUR TEETH 4 TIMES A DAY USING TOOTHPAST E active Not Available Not Available No t Available lidocaine (PF) 10 mg/mL (1 %) injection solution Take 4 mL by injection route. 02/24 completed Not Available Not Available Not Available BD Ultra-Fine Short Pen Needle 31 gauge x 5/16 1 DEVICE BY DOES NOT APPLY ROUTE AT BEDTIME. USE ONCE A DAY WITH LANTUS active Not Available Not Available No t Available Lantus Solostar U-100 Insulin 100 unit/mL (3 mL) subcutaneou s pen INJECT 10 UNITS INTO THE SKIN AT BEDTIME. active Not Available Not Available No t Available diclofenac 1 % topical gel APPLY 1 G TOPICALLY 3 TIMES DAILY NEEDED (PAIN). active Not Available Not Available No t Available cholecalcif chnael (vitamin D3) 50 mcg (2,000 unit) tablet TAKE 1 TABLET BY MOUTH EVERY DAY active Not Available Not Available No t Available lidocaine (PF) 100 mg/5 mL (2 %) injection syringe Take 3 mL by injection route. 2023 active Not Available Not Available Not Avai lable OneTouch Verio test strips USE TO TEST SUGAR TWICE A DAY active Not Available Not Available No t Available Jardiance 10 mg tablet TAKE 1 TABLET BY MOUTH EVERY MORNING. PLEASE CLOSE 25 MG SCRIPT active Not Available Not Available No t Available Trulicity 0.75 mg/0.5 mL subcutaneou s pen injector INJECT 1 PEN SUBCUTANE OUSLY ONE TIME PER WEEK active Not Available Not Available No t Available OneTouch Delica Plus Lancet 33 gauge USE DIRECTED TWICE DAILY TO TEST SUGAR. active Not Available Not Available No t Available OneTouch Verio Reflect Meter USE DIRECTED 2 TIMES DAILY. 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 active Not Available Not Available No t Available Paxlovid 300 mg (150 mg x 2)-100 mg tablets in a dose pack TAKE 3 TABLETS BY MOUTH TWICE A DAY FOR 5 DAYS 09/19 completed Not Available Not Available Not Available Vitals Date Recorded Body height Body mass index (BMI) Body weight Provider Name and Address Organization Details Last Updated DateTime 12/25/2023 152.4 cm 48.8 kg/m2 115458.[address] - [facility] 12/25/2023 09:16:08 Date Recorded Body height Body mass index (BMI) Body weight Provider Name and Address Organization Details Last Updated DateTime 02/25/2024 152.4 cm 48.6 kg/m2 887599.[address] - [facility] 02/25/2024 10:05:29 Date Recorded Body height Provider Name an d Address Organization Details Last Updated DateTime 09/19/2023 152.4 cm Janet Loya [facility] 09/19/2023 09:40:08 Social History None recorded. Functional Status Question Answer Note LastModified by Organizat ion Details LastModified Time Do you use any illicit or recreational drugs? No Information not available 09/19/2023 Do you or have you ever used any other forms of tobacco or nicotine? No Information not available 09/19/2023 What is your level of alcohol consumption? None Information not available 09/19/2023 Mental Status None recorded. Family History Relationship Description Onset Age of this Age Resolved Age Notes LastModified by Organization Details LastModified Time Father Diabetes mellitus [email or web address] Not available 2022 15:17:30 Father Arthritis Not available 09/19/2023 11:11:32 Mother Diabetes mellitus [email or web address] Not available 2022 15:17:30 Mother Arthritis Not available 09/19/2023 11:11:32 Medical History Condition Response Arthritis Y Gynecological HistoryNo gynecological history recorded. Obstetrics History GPAL:G 0 P 0 0 0 0 Past Encounters Encounter ID Performer Location Encounter Start Date Encounter Closed Date Diagnosis/Indication Diagnosis SNOMED-CT Code Diagnosis ICD10 Code Diagnosis IMO Codes Diagnosis Note [id number] JULIUS VALDES [address] [facility] [address] [place] [address] 09/19/2023 09:06:49 09/19/2023 09:44:02 Pain of left shoulder joint [id number] 4278279 M25.512 Osteoarthr itis of joint of left shoulder region 4006735713 38064 M19.012 [id number] JULIUS MORALES [facility] [address] [facility] [address] [place] [address] 11/29/2023 13:17:17 11/29/2023 14:37:43 Pain of right shoulder joint 3364067559 1256191 M25.511 Tendinitis of rotator cuff tendon 817624556 M67.819 [id number] JULIUS VALDES [facility] [address] [facility] [address] [place] [address] 12/25/2023 09:08:03 12/25/2023 09:41:25 Impingement syndrome of left shoulder region 6831160573 09344 M75.42 [id number] MD MARIE Lucero[address] [address] 02/25/2024 09:17:37 02/25/2024 10:46:24 Impingement syndrome of left shoulder region 1497627344 60513 M75.42 [id number] PRESLEY VILLALTA PA-C [address] [address] 04/24/2024 13:59:32 04/24/2024 14:54:55 Impingement syndrome of right shoulder region 9154036419 38514 M75.41 Impingemen t syndrome of left shoulder region 8193571981 03133 M75.42 Health Concerns Section Related Observation LastModified by Organization Detai ls LastModified Time None Recorded Concern Status LastModified by Organization Details LastModified Time None Recorded Advance Directives Directive None Recorded Payers Insurance Date Sequence Insurance Name Policy Number Policy Amezquita Covered Member ID Amezquita Member ID Guarantor Name 09/18/2023 1 [place] [id number] H Bruce Vieira [id number] Bruce Vieira 12/22/2023 1 [place] [id number] H Bruce Vieira [id number] Bruce Vieira 09/19/2023 2 [place] [facility] Bruce Vieira [id number] Bruce Dariel Notes Date Note Type Note Provider Name and Address Organization Details Recorded Time 09/19/2023 text/html Pleasant 68-year-old female with a history of Lt shoulder. arthroscopy April 20, [address] Shook. Comes in with chief complaint of ongoing left shoulder pain mostly with elevation sleeping at night. States no weakness without paresthesia denies neck symptoms here for follow-up evaluation. LORENZA GILMORE PA-C [address] [facility],[place] [address], [place], [address], [facility] - [facility] 09/19/2023 10:08:17 11/29/2023 text/html 68-year-old female presents with complaint of bilateral shoulder pain. This is the first time of assessing the right shoulder. She reports that it has been bothering her for recent months. The pain is at the shoulder and radiates into the upper arm. It is made worse by moving her arm away from her body. On her last office encounter she had a cortisone injection to the left shoulder that was on 09/19/2023. She states that it gave her approximately 2 months worth of relief of her pain. She has used some yomr-rbr-wimxoqh anti-inflammatory but has not tried any prescription medicine. She has not done any physical therapy for either shoulder. She denies a history of surgery to either shoulder. LORENZA HERNANDEZ PA-C [address] [facility], [place], [address], [facility] - [facility] 11/29/2023 14:30:28 12/25/2023 text/html Assessment & Plan: Date of visit [id number] ld female with history of left shoulder surgery by Dr. Shook back in 2021 with ongoing lingering symptoms of pain.She has evidence of glenohumeral arthritis with decreased range of motion we did discuss treatment options however she did opt for cortisone injection at today's visit. After verbal consent was granted. The procedure was carried on the left shoulder. She tolerated this well. Aftercare instructions were discussed in detail. Prior to leaving she states she had notable improvement. I would like to see her back in 3 months time for repeat clinical exam should her symptoms not improve or worsen she should contact my office. HPI: Ongoing left shoulder pain cortisone injection gave her brief relief. She is been doing therapy which makes her symptoms worse. She is taking ibuprofen which gives her little relief. This is now affecting her overall quality of life and daily activities including working on the computer. LORENZA GILMORE PA-C [address] [place] [address],[place] [address], [place], [address], [place] - [facility] 12/25/2023 09:40:07 02/25/2024 text/html Patient returns for ongoing evaluation of her left shoulder pain. She is right-hand dominant. She has had 2 surgeries on the shoulder, the first of which in 2011 was a rotator cuff repair. She then had another surgery in 2021 which was a clean up . She did okay for about 6 months after the second surgery but then developed recurrent pain. She describes throbbing. She had a cortisone injection in the left shoulder that was helpful for about 3 months. She notes moderate discomfort described as burning, throbbing, pinching, dull/aching, sharp, shooting, stabbing, and radiating. Pain can range between an 8 to a 9 on a 10 point scale. It bothers her with overhead activities. She denies instability. She has tried Tylenol Extra Strength with limited relief. She also mentions that she is having some ongoing persistent right shoulder pain. PRIOR BK:Ongoing left shoulder pain cortisone injection gave her brief relief. She is been doing therapy which makes her symptoms worse. She is taking ibuprofen which gives her little relief. This is now affecting her overall quality of life and daily activities including working on the computer. Jake Gerardo MD [address], [place], [address], [place] - [facility] 02/25/2024 12:57:30 04/24/2024 text/html ROS as noted in the HPI Patient returns to the office today for follow up of her left shoulder and evaluation of right shoulder pain. She reports pain diffusely around the shoulder that radiates into the upper arm. Aggravated by any overhead movement and is making her ADLs difficult, especially given her ongoing left shoulder complaints. Denies numbness or tingling. Endorses nighttime pain.She has seen little improvement following recent cortisone injection. She does find the shoulder moves better but her pain is persistent. PRIOR:Patient returns for ongoing evaluation of her left shoulder pain. She is right-hand dominant. She has had 2 surgeries on the shoulder, the first of which in 2011 was a rotator cuff repair. She then had another surgery in 2021 which was a clean up . She did okay for about 6 months after the second surgery but then developed recurrent pain. She describes throbbing. She had a cortisone injection in the left shoulder that was helpful for about 3 months. She notes moderate discomfort described as burning, throbbing, pinching, dull/aching, sharp, shooting, stabbing, and radiating. Pain can range between an 8 to a 9 on a 10 point scale. It bothers her with overhead activities. She denies instability. She has tried Tylenol Extra Strength with limited relief. She also mentions that she is having some ongoing persistent right shoulder pain. PRIOR BK:Ongoing left shoulder pain cortisone injection gave her brief relief. She is been doing therapy which makes her symptoms worse. She is taking ibuprofen which gives her little relief. This is now affecting her overall quality of life and daily activities including working on the computer. PRESLEY VILLALTA PA-C [address], [place], [address], [place] - [facility] 05/01/2024 22:24:49 OBGyn Episode No OBEpisode recorded.
--- OUTSIDE RECORDS SUMMARY | 2025-09-26 10:57 | XMS_ITS | Clinical Summary ---
Author Organization Formerly [facility] Address [address] [place] [address] Care Team Providers Care Engraver Name Role Phone Brice Bucio MD Primary Care Provider [phone] Social History Tobacco Use Types Packs/Day Years [...] - 2023-2 5 season) 2025 RSV Vaccine 50 years and old er and Patients (1 - 1-dose 75+ series) 2032 Hepatitis B Vaccines Aged Out No long er eligible based on patient's age to complete this topic Care Teams Engraver Relationship Specialty Start Date End Date Brice Bucio MD [address] [place] [id number] PCP - General
--- OUTSIDE RECORDS SUMMARY | 2025-09-26 10:57 | XMS_ITS | Encounter Summary ---
[facility] Address [address] [place] [address] Support Name Relationship Address Phone Amanda White Daughter [phone] [place] [address] Care Team Providers Care House Worker Name Role Phone Adolph Butt MD Primary Care Provider [phone] Encounter Details Date Type Department Care Team ([facility] st Contact Info) Description 09/18/2025 Results Follow-Up Internal Medicine - [address] [place] [phone] Adolph Butt MD [address] [place] [phone] Social History Tobacco Use Types Packs/Day Years [...] care for your loved ones. For example, early childhood or elderly care for an older adult? [...] PM EST documented as of this encounter Ordered Prescriptions Prescription Sig Dispense Quantity Refills Last Filled Start Date End Date ergocalciferol (VITAMIN D-2) 1,250 mcg (50,000 unit) capsule Take 1 capsule (50,000 Units total) by mouth 1 (one) time per week. 4 capsule 5 09/21/2025 documented in this encounter Plan of Treatment Upcoming Encounters Date Type Department Care Team (Late st Contact Info) Description 10/06/2025 8:30 AM EST Evaluation Outpatient Rehabilitation [address] [address] Umer Smalls, PT 10/16/2025 9:10 AM EST Office Visit [facility] [address] [place] [address] Miroslava Lima NP [address] [place] [address] Dr Copeland [address] [place] [phone] 03/19/2026 9:00 AM EDT Nutrition Internal Medicine - [place] [address] [phone] Savita De La Rosa, ARTURO [address] [place] [phone] 03/19/2026 10:30 AM EDT Office Visit Internal Medicine - [address] [phone] Adolph Butt MD [address] [place] [phone] 03/29/2026 8:45 AM EDT Office Visit Pulmonology - [address] [phone] Nicky aPndey MD [address] [place] [phone] Scheduled Orders Name Type Priority Associated Diagnoses Orde r Schedule Hemoglobin A1c Lab Routine Type 2 diabetes mellitus without complication, without long-term current use of insulin (CMS/HCC V24, CMS/HCC V28) Expected: 12/22/2025, Expires: 09/21/2026 Comprehensive metabolic panel Lab Routine Hypokalemia 1 Occurrences starting 09/21/2025 until 09/21/2026 documented as of this encounter Visit Diagnoses Diagnosis Vitamin D deficiency- Primary Type 2 diabetes mellitus without complication, without long-term current use of insulin ([facility] V24, [facility] V28) Hypokalemia Hypopotassemia documented in this encounter Additional Health Concerns Assessment Noted Time PHQ-9 Depression Total Score: 0 09/17/20 10:25 AM EDT A fall risk assessment has been complete d for the patient 09/17/2025 10:57 AM EDT documented as of this encounter Care Teams House Worker Relationship Specialty Start Date End Date Adolph Butt MD [address] [place] [phone] PCP - General 02/11/24 documented as of this encounter"
--- OUTSIDE RECORDS SUMMARY | 2025-09-26 10:58 | XMS_ITS | Encounter Summary ---
Author Organization [employer] Address [address] [place] [address] Support Name Relationship Address Phone Amanda White Daughter [phone] [place] [address] Care Team Providers Care Gas Turbine Powerplant Mechanic Helper Name Role Phone Adolph Butt MD Primary Care Provider [phone] Encounter Details Date Type Department Care Team (Late st Contact Info) Description 08/25/2025 Results Follow-Up [facility] [address] [place] [address] Dr [address] [place] [phone] Deisi Hicks NP [address] [place] [address] Dr Copeland [address] [place] [phone] Social History Tobacco Use Types Packs/Day Years [...] for your loved ones. For example, child support investigator or elderly care for an older adult? [...] 10/06/2025 8:30 AM EST Evaluation Outpatient Rehabilitation [address] [phone] Umer Smalls, PT 10/16/2025 9:10 AM EST Office Visit [facility] - [facility] [address] [place] [phone] Miroslava Lima NP [address] [facility] [address] [place] [address] 03/19/2026 9:00 AM EDT Nutrition Internal Medicine - [place] [address] [phone] Savita De La Rosa, RD [address] [place] [phone] 03/19/2026 10:30 AM EDT Office Visit Internal Medicine - [place] [address] [phone] Adolph Butt MD [address] [place] [phone] 03/29/2026 8:45 AM EDT Office Visit Pulmonology - [place] [address] [phone] Nicky Pandey MD [address] [place] [phone] documented as of this encounter Visit Diagnoses Not on filedocumented in this encounter Additional Health Concerns Assessment Noted Time PHQ-9 Depression Total Score: 0 03/17/20 25 7:50 AM EDT documented as of this encounter Care Teams Gas Turbine Powerplant Mechanic Helper Relationship Specialty Start Date End Date Adolph Butt MD [address] [phone] PCP - General 02/11/24 documented as of this encounter
--- OUTSIDE RECORDS SUMMARY | 2025-09-26 10:58 | XMS_ITS | Clinical Summary ---
Author Organization [address] Address [address] [place] [address] Phone Support Name Relationship Address Phone Amanda White Daughter [address] [place] [place] [address] Care Team Providers Care Beef Lugger Name Role Phone Adolph Butt MD Primary Care Provider [phone] Allergies Active Allergy Reactions Criticality Noted Date [...] DAILY NEEDED FOR RHINITIS. 05/14/20 24 Active lancets (GigawattTouch Delica Plus Lancet) 33 gauge 1 Device by Does not apply route 3 times daily. Use to test sugar three x a day [id number] 04/22/20 24 Active inhalat.spacing dev,large mask (BreatheRite Spacer-Mask,Adult ) spacer 1 Device by Does not apply route as needed (for use with MDI - wheezing/cough ). 09/08/20 19 Active diclofenac (VOLTAREN) 1 % topical gel Apply 2 g topically 2 (two) times a day. 100 g 4 10/28/20 24 Active blood glucose control, high (GigawattTouch Verio High Control) solution 1 drop 1 (one) time each day. Use to ensure accuracy of meter once a day 1 each 11/13/20 24 Active cetirizine (ZyrTEC) 10 mg tablet Take 1 tablet (10 mg total) by mouth 1 (one) time each day. Active ibuprofen (ADVIL,MOTRIN) 800 mg tablet Take 1 tablet (800 mg total) by mouth 3 (three) times a day with meals. Active eucalypt-lavender -pine-beeswax ointment by Not Applicable route. Active RUSS OIL, BULK, MISC by Not Applicable route. Active blood-glucose meter (GigawattTouch Verio Reflect Meter) misc Test blood sugar [...] 1 03/18/20 25 Active blood sugar diagnostic (GigawattTouch Verio test strips) test strip Use once [...] 3 (three) times a day. 1 each 08/06/20 25 026 Active ergocalciferol (VITAMIN D-2) 1,250 mcg (50,000 unit) capsule Take 1 capsule (50,000 Units total) by mouth 1 (one) time per week. 4 capsule 5 09/21/20 026 Active loratadine (CLARITIN) 10 mg tablet Take 1 Tablet by mouth at bedtime as needed for Allergies for up to 360 days. 07/18/20 24 025 Discontin ued(Non-c ompliance ) polyethylene glycol (Golytely) 236-22.74-6.74 -5.86 gram solution Take 4L by mouth once for one dose. May substitue any PEG. Starting at 6PM the night before your procedure drink 1 8oz glasses at your own pace until you complete half of the gallon. Finish 2nd half of the gallon 5 hours before your procedure. 4000 mL 11/20/20 025 Discontin ued(Thera py completed ) Hospital, Clinic, or Other Facility Administered Medication Ordered Dose Route Frequency Start Date End Date Status triamcinolone acetonide (KENALOG-40) 40 mg/mL injection 40 mgIndications:Arthri tis of both glenohumeral joints 40 mg Once PRN Procedure 09/02/2025 09/02/2025 Ended triamcinolone acetonide (KENALOG-40) 40 mg/mL injection 40 mgIndications:Arthri tis of both glenohumeral joints 40 mg Once PRN Procedure 09/02/2025 09/02/2025 Ended Active Problems Problem Noted Date Diagnosed Date (HFpEF) heart failure with p reserved ejection fraction ([facility] V24, [facility] V28) 04/07/2024 Overview (09/15/2024): Last Assessment & [...] dyspnea on exertion. She was seen by [place] pulmonology service in the past. Her dyspnea [...] complication, without long-term current use of insulin ([facility] V24, [facility] V28) 03/20/2024 Arthritis of shoulder 03/19/2024 Raynaud's [...] knees 08/04/2014 Overview (09/15/2024): Dr. Ramirez, in [facility] BOBBY on CPAP 08/04/2014 Overview (09/15/2024): [...] Encounters Date Type Department Care Team Description 09/24/2025 11:20 AM EDT Lab Draw Station - [address] [phone] Medicare annual wellness visit, subsequent; Type 2 diabetes mellitus without complication, without long-term current use of insulin ([facility] V24, [facility] V28); Other fatigue; Vitamin D deficiency; Dyslipidemia 09/18/2025 Results Follow-Up Internal Medicine [address] [phone] Adolph Butt MD 09/17/2025 10:30 AM EDT Office Visit Internal [address] [phone] dAolph Butt MD Medicare annual wellness visit, subsequent (Primary Dx); Chronic heart failure with preserved ejection fraction (HFpEF) ([facility] V24, [facility] V28); Dyslipidemia; BOBBY on CPAP; Other fatigue; Other abnormal glucose; Type 2 diabetes mellitus without complication, without long-term current use of insulin ([facility] V24, [facility] V28); Vitamin D deficiency; Routine general medical examination at a health care facility; Screening for colorectal cancer 09/17/2025 9:00 AM EDT Nutrition Internal Medicine [address] [phone] Savita De La Rosa [address] Type 2 diabetes mellitus without complication, without long-term current use of insulin ([facility] [place], [facility] V28) (Primary Dx); Morbid obesity ([facility] [place]24, [facility] V28) 09/17/2025 Telephone Internal Medicine [address] [place] [address] Adolph Butt MD 09/09/2025 Telephone Vascular Surgery [facility] [address] [phone] Aster Mckeon PA 09/04/2025 9:30 AM EDT Office Visit Vascular Surgery [address] [place] [address] Aster Mckeon PA Lymphedema (Primary Dx); Lower extremity edema; Obesity, morbid, BMI 50 or higher ([facility] V24, [facility] V28) 09/02/2025 11:15 AM EDT Office Visit Orthopedic Surgery [address] [place] [phone] Prasanna Watts MD Arthritis of both glenohumeral joints (Primary Dx) 08/25/2025 8:30 AM EDT Consult Orthopedic Surgery - [place] [address] [facility] [address] [place] [phone] Prasanna Watts MD Chronic pain of both shoulders (Primary Dx); Arthritis of both glenohumeral joints; Myofascial pain on right side 08/25/2025 Results Follow-Up [facility] [address] [facility] [address] [place] [phone] Deisi Hicks NP 08/13/2025 11:45 AM EDT Office Visit Orthopedics [address] [phone] Gio Riley PA Chronic pain of both shoulders (Primary Dx) 08/13/2025 Telephone Adult Medicine [address] [phone] Bethany Dong PharmD 08/06/2025 11:00 AM EDT Office Visit Pulmonology - [place] [address] [facility] 200 [place] [phone] Nicky Pandey MD BOBBY (obstructive sleep apnea) (Primary Dx); Chronic bronchitis, unspecified chronic bronchitis type (CMS/HCC V24, CMS/HCC V28); Lung nodules; Primary hypertension from Last 3 Months Immunizations Immunization Administration Dates Next Due Moderna SARS-CoV-2 COVID-19, mRNA, LNP-S, preservative free 05/05/2021,04/07/2021 Pneumococcal conjugate 20 va lent (Prevnar 20, PCV 20) 2mo and older 07/18/2024 Zoster Live 11/23/2020 Surgical History Surgery Date Site/Laterality Comments JOINT REPLACEMENT 2014 Right PROCEDURE:JOINT REPLACEMENT;COMMENT:RIGHT KNEE - DR FONSECA EYE SURGERY 1959 Right PROCEDURE:EYE SURGERY;COMMENT:CORRECT CROSS EYE EYE SURGERY 1960 Left PROCEDURE:EYE SURGERY;COMMENT:CORRECT LEFT CROSS EYE KNEE SURGERY PROCEDURE:KNEE SURGERY ROTATOR CUFF REPAIR 2011 Left PROCEDURE: HISTORICAL ROTATOR CUFF REPAIR; COMMENT: tanana ct TOTAL KNEE ARTHROPLASTY Right PROCEDURE: [place] ARTHRP KNE CONDYLE&PLATU MEDIAL&LAT COMPARTMENTS; COMMENT: right 10/18/15 Medical History Medical History Date Comments Arthritis DX:Arthritis;COM MENT:BILATERAL KNEES Arthritis of both knees 08/04/2014 DX:Arthr itis of both knees; COMMENT: Dr. Ramirez, [place] BOBBY on CPAP 08/04/2014 DX:BOBBY on CPAP Osteoarthritis of left knee 03/08/2017 DX:O steoarthritis of left knee Morbid obesity with BMI of 4 0.0-44.9, adult ([facility] V24, CMS/HCC V28) 03/08/2017 DX:Morbid obesity wit h BMI of 40.0-44.9, adult (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) Family History Medical History Relation Name Comments [...] care for your loved ones. For example, teacher early childhood development or elderly care for an older adult? [...] Ectopic Multiple Livin g Live Births [birth year] 1 Date Outcome GA Total Labor Labor/2nd/3rd Weight Sex Type Anes PTL Kate A1 A5 Name Clin Term Last Filed Vital Signs Vital Sign Reading Time Taken Comments Blood Pressure 130/80 09/17/2025 11:10 AM EDT Pulse 90 09/17/2025 10:16 AM EDT Temperature 36.2 C (97.1 F) 09/17/2025 10:16 AM EDT Respiratory Rate 18 08/13/2025 11:48 AM EDT Oxygen Saturation 97% 09/17/2025 10:16 AM EDT Inhaled Oxygen Concentration - - Weight 112 kg (246 lb) 09/17/2025 11:28 AM EDT Height 152.4 cm (5') 09/17/2025 11:28 AM EDT Body Mass Index 48.04 09/17/2025 11:28 AM EDT Plan of Treatment Upcoming Encounters Date Type Department Care Team (Late st Contact Info) Description 10/06/2025 8:30 AM EST Evaluation Outpatient Rehabilitation [address] [phone] Umer Smalls, PT 10/16/2025 9:10 AM EST Office Visit [facility] [address] [place] [address] Dr Harris [address] [place] [phone] Miroslava Lima NP [address] [place] [address] Dr Min [address] [place] [phone] 03/19/2026 9:00 AM EDT Nutrition Internal Medicine [facility] [address] [phone] Savita De La Rosa, RD 175 [place] [phone] 03/19/2026 10:30 AM EDT Office Visit Internal Medicine [facility] [address] [phone] Adolph Butt MD [address] [place] [phone] 03/29/2026 8:45 AM EDT Office Visit Pulmonology - [address] [place] [address] Nicky Pandey MD [facility] [place] [address] Health Maintenance Due Date Last Done Comments DTaP,Tdap,and Td Vaccines (1 - Tdap) 1976 RSV Immunization Adult Patients (1 - Risk 50-74 years 1-dose series) 2007 Zoster Vaccines (2 of 3) 01/18/2021 11/23/2020, 10/27 Colorectal Cancer Screening: Stool Based Tests (FOBT/FIT) 10/29/2022 COVID-19 Vaccine ( - season) 2025 05/05/2021, 04/07/2021 Influenza Vaccine (#1) 2025 Diabetes: Annual Retina Eye Exam 09/29/2025 09/29/2024 Diabetes: Blood Sugar Control Test (HGBA1C) 03/19/2026 09/18/2025, 08/08/2024, 08/08/2024, Additional history exists Diabetes: Annual Foot Exam 09/17/2026 09/17/2025, Falls Risk Assessment 09/17/2026 09/17/2025 , 10/08/2024, 03/19/2024 Medicare Annual Wellness Visit 09/17/2026 09/17/2025 Social Influencers of Health Screening 09/17/2026 09/17/2025 Diabetes: Annual GFR (Glomerular Filtration Rate) 09/18/2026 09/18/2025, 08/25/2025, 06/17/2025, Additional history exists Hypertension/CHF/CAD Annual BMP Blood Test 09/18/2026 09/18/2025, 08/25/2025, 06/17/2025, Additional history exists Diabetes: Annual Urine Albumin-Creatinine Ratio (uACR) 09/24/2026 09/24/2025, 04/30/2024 Breast Cancer Screening 12/29/2026 12/29/19 25, 09/09/2021, 08/23/2020, Additional history exists Cholesterol Screening (Lipid Panel) 09/18/2030 09/18/2025, 03/19/2024 Osteoporosis Screening (Bone Density Screening) 12/29/2034 12/29/2024 Colorectal Cancer Screening: Colonoscopy Discontinued 11/18/2014 Hepatitis C Screening Completed 03/19/2024 Pneumococcal Vaccine: 50+ Years Completed 07/18/2024 Depression Screening Completed 09/17/2025, 07/18/20 HIB Vaccines Aged Out No longer [...] complication, without long-term current use of insulin ([facility] V24, [facility] V28) Other fatigue Vitamin D deficiency Dyslipidemia CBC WITH AUTO DIFFERENTIAL Routine 09/18/2025 9:31 AM EDT Medicare annual wellness visit, subsequent Other fatigue CBC AND DIFFERENTIAL Routine 09/18/2025 9:31 AM EDT Medicare annual wellness visit, subsequent Other fatigue HEMOGLOBIN A1C Routine 09/18/2025 9:31 AM EDT Medicare annual wellness visit, subsequent Type 2 diabetes mellitus without complication, without long-term current use of insulin ([facility] V24, CMS/[facility] V28) VITAMIN B12 Routine 09/18/2025 9:31 AM EDT Medicare annual wellness visit, subsequent Other fatigue COMPREHENSIVE METABOLIC PANEL Routine 09/18/2025 9:31 AM EDT Medicare annual wellness visit, subsequent Other fatigue LIPID PANEL WITH REFLEX TO DIRECT LDL Routine 09/18/2025 9:31 AM EDT Medicare annual wellness visit, subsequent Dyslipidemia VITAMIN D 25 HYDROXY Routine 09/18/2025 9:31 AM EDT Medicare annual wellness visit, subsequent Vitamin D deficiency THYROID STIMULATING HORMONE WITH REFLEX TO FREE T4 AND FREE T3 Routine 09/18/2025 9:31 AM EDT Medicare annual wellness visit, subsequent Other fatigue [place] ARTHROCENTESIS/ASPIRA TION/INJECTION MAJOR JOINT/BURSA W U/S GUIDANCE Routine 09/02/2025 11:15 AM EDT Arthritis of both glenohumeral joints BASIC METABOLIC PANEL Routine 08/25/2025 10:02 AM EDT Lower extremity edema XR SHOULDER 2+ VIEWS BILAT Routine 08/25/2025 8:11 AM EDT Chronic pain of both shoulders BD BONE DENSITY DXA AXIAL SKELETON Routine [...] cancer EXTERNAL DIABETIC RETINA EYE EXAM 09/29/2024 DEPRESSION SCREENING Routine 07/18/2024 DIABETES FOOT EXAM Routine 07/18/2024 HEPATITIS C SCREENING Routine 03/19/2024 FALLS RISK ASSESSMENT Routine 03/19/2024 COLONOSCOPY Routine 11/18/2014 from Last 3 Months or Most Recently Relevant to Health Maintenance Results * Microalbumin creatinine urine ratio (09/24/2025 11:29 AM EDT) Creatinine, Urine 107.0 mg/dL LAB CHEMISTRY METHOD 09/24/2025 3:58 PM EDT [facility] Microalb, Ur 24.8 0.0 - 29.0 mg/L LAB CHEMISTRY METHOD 09/24/2025 3:58 PM EDT [facility] Microalb/Creat Ratio 23 <30 mg/g creat LAB CHEMISTRY METHOD 09/24/2025 3:58 PM EDT [facility] Urine Urine specimen obtained by clean catch procedure / Unknown Non-blood Collection / Unknown 09/24/2025 11:29 AM EDT 09/24/2025 11:29 AM EDT us Adolph Butt MD LAB URINE ORDERABLES Final Resul t [facility] [address] [place] [address], * Thyroid stimulating hormone with reflex to free t4 and free t3 (09/18/2025 9:31 AM EDT) TSH 1.77 0.40 - 4.00 mcIU/mL LAB CHEMISTRY METHOD 09/18/2025 4:02 PM EDT [facility] Blood Venous blood specimen / Unknown Venipuncture / Unknown 09/18/2025 9:31 AM EDT 09/18/2025 9:31 AM EDT Adolph Butt MD LAB BLOOD ORDERABLES Final Resul t Performing Organization Address City/[facility]/ZIP Co de Phone Number [facility] [address] [place] [address], [place] [phone] * Lipid panel with reflex to direct LDL (09/18/2025 9:31 AM EDT) Cholesterol 175 0 - 200 mg/dL LAB CHEMISTRY METHOD 09/18/2025 2:35 PM EDT [facility] Triglycerides 81 0 - 150 mg/dL LAB CHEMISTRY METHOD 09/18/2025 2:35 PM EDT [facility] HDL 69 >=40 mg/dL LAB CHEMISTRY METHOD 09/18/2025 2:35 PM EDT [facility] LDL Calculated 90 0 - 100 mg/dL LAB CHEMISTRY METHOD 09/18/2025 2:35 PM EDT [facility] Comment:Estimated LDL Calcul ated using equation: Total cholesterol - HDL cholesterol - (Triglycerides/5) VLDL Cholesterol Talib 16.2 mg/dL LAB CHEMISTRY METHOD 09/18/2025 2:35 PM EDT [facility] Non HDL Chol. (LDL+VLDL) 106 <145 mg/dL LAB CHEMISTRY METHOD 09/18/2025 2:35 PM EDT [facility] Chol/HDL Ratio 2.5 0.0 - 4.4 LAB CHEMISTRY METHOD 09/18/2025 2:35 PM EDT [facility] Blood Venous blood specimen / Unknown Venipuncture / Unknown 09/18/2025 9:31 AM EDT 09/18/2025 9:31 AM EDT Adolph Butt MD LAB BLOOD ORDERABLES Final Resul t [facility] [address] [place] [address], * (ABNORMAL) CBC auto differential (09/18/2025 9:31 AM EDT) [facility] WBC 7.5 4.8 - 10.8 K/mcL LAB HEMETOLOGY METHOD 09/18/2025 12:16 PM EDT [facility] RBC 4.80 3.80 - 4.80 M/mcL LAB HEMETOLOGY METHOD 09/18/2025 12:16 PM EDT [facility] Hemoglobin 14.2 11.5 - 16.0 g/dL LAB HEMETOLOGY METHOD 09/18/2025 12:16 PM EDT [facility] Hematocrit 44.4 35.0 - 47.0 % LAB HEMETOLOGY METHOD 09/18/2025 12:16 PM EDT [facility] MCV 92.9 79.0 - 98.0 FL LAB HEMETOLOGY METHOD 09/18/2025 12:16 PM EDT [facility] MCH 29.7 27.0 - 32.0 pcg LAB HEMETOLOGY METHOD 09/18/2025 12:16 PM EDT [facility] MCHC 32.0 32.0 - 37.0 g/dL LAB HEMETOLOGY METHOD 09/18/2025 12:16 PM EDT [facility] RDW 13.9 11.0 - 15.0 % LAB HEMETOLOGY METHOD 09/18/2025 12:16 PM EDT [facility] Platelets 236 130 - 400 K/mcL LAB HEMETOLOGY METHOD 09/18/2025 12:16 PM EDT [facility] MPV 11.3(H) 7.0 - 11.0 FL LAB HEMETOLOGY METHOD 09/18/2025 12:16 PM EDT [facility] NRBC 0.0 <1.0 % LAB HEMETOLOGY METHOD 09/18/2025 12:16 PM EDT [facility] NRBC Absolute 0.00 <0.10 K/mcL LAB HEMETOLOGY METHOD 09/18/2025 12:16 PM [facility] Neutrophils Relative 60.3 % LAB HEMETOLOGY METHOD 09/18/2025 12:16 PM EDT [facility] Lymphocytes Relative 30.9 % LAB HEMETOLOGY METHOD 09/18/2025 12:16 PM EDT [facility] Monocytes Relative 7.8 % LAB HEMETOLOGY METHOD 09/18/2025 12:16 PM EDT [facility] Eosinophils Relative 0.3 % LAB HEMETOLOGY METHOD 09/18/2025 12:16 PM [facility] Basophils Relative 0.4 % LAB HEMETOLOGY METHOD 09/18/2025 12:16 PM [facility] Immature Granulocytes Relative 0.3 % LAB HEMETOLOGY METHOD 09/18/2025 12:16 PM [facility] Neutrophils Absolute 4.50 1.50 - 7.00 K/mcL LAB HEMETOLOGY METHOD 09/18/2025 12:16 PM [facility] Lymphocytes Absolute 2.30 1.00 - 5.00 K/mcL LAB HEMETOLOGY METHOD 09/18/2025 12:16 PM [facility] Monocytes Absolute 0.58 0.20 - 1.00 K/mcL LAB HEMETOLOGY METHOD 09/18/2025 12:16 PM [facility] Eosinophils Absolute 0.02 0.00 - 0.50 K/mcL LAB HEMETOLOGY METHOD 09/18/2025 12:16 PM [facility] Basophils Absolute 0.03 0.00 - 0.20 K/mcL LAB HEMETOLOGY METHOD 09/18/2025 12:16 PM [facility] Immature Granulocytes Absolute 0.02 0.00 - 0.03 K/mcL LAB HEMETOLOGY METHOD 09/18/2025 12:16 PM EDT [facility] Blood Venous blood specimen / Unknown Venipuncture / Unknown 09/18/2025 9:31 AM EDT 09/18/2025 9:31 AM EDT Adolph Butt MD LAB BLOOD ORDERABLES Final Resul t Performing Organization Address City/[facility]/ZIP Co de Phone Number [facility] [address] [place] [address], [place] [phone] * (ABNORMAL) Vitamin D 25 hydroxy (09/18/2025 9:31 AM EDT) Vit D, 25-Hydroxy 9.8(L) 30.0 - 80.0 ng/mL LAB CHEMISTRY METHOD 09/18/2025 4:02 PM EDT [facility] Blood Venous blood specimen / Unknown Venipuncture / Unknown 09/18/2025 9:31 AM EDT 09/18/2025 9:31 AM EDT Adolph Butt MD LAB BLOOD ORDERABLES Final Resul t Performing Organization Address [facility]/ZIP Co de Phone Number [facility] [address] [place] [address], [place] [phone] * (ABNORMAL) Hemoglobin A1c (09/18/2025 9:31 AM EDT) Hemoglobin A1C 8.4(H) <6.5 % LAB CHEMISTRY METHOD 09/18/2025 2:08 PM EDT [facility] Mean Bld Glu Estim. 194 mg/dL LAB CHEMISTRY METHOD 09/18/2025 2:08 PM EDT [facility] Blood Venous blood specimen / Unknown Venipuncture / Unknown 09/18/2025 9:31 AM EDT 09/18/2025 9:31 AM EDT Adolph Butt MD LAB BLOOD ORDERABLES Final Resul t [facility] [address] [place] [address], [place] [phone] * Vitamin B12 (09/18/2025 9:31 AM EDT) [facility] Vitamin B-12 348 250 - 900 pcg/mL LAB CHEMISTRY METHOD 09/18/2025 2:35 PM EDT [facility] Blood Venous blood specimen / Unknown Venipuncture / Unknown 09/18/2025 9:31 AM EDT 09/18/2025 9:31 AM EDT Adolph Butt MD LAB BLOOD ORDERABLES Final Resul t Performing Organization Address City/[facility]/ZIP Co de Phone Number [facility] [address] [place] [address], [place] [phone] * (ABNORMAL) Comprehensive metabolic panel (09/18/2025 9:31 AM EDT) [facility] Sodium 137 133 - 145 mmol/L LAB CHEMISTRY METHOD 09/18/2025 2:41 PM EDT [facility] Potassium 3.4(L) 3.5 - 5.5 mmol/L LAB CHEMISTRY METHOD 09/18/2025 2:41 PM EDT [facility] Chloride 101 96 - 110 mmol/L LAB CHEMISTRY METHOD 09/18/2025 2:41 PM EDT [facility] CO2 26 21 - 32 mmol/L LAB CHEMISTRY METHOD 09/18/2025 2:41 PM EDT [facility] Anion Gap 10 3 - 11 LAB CHEMISTRY METHOD 09/18/2025 2:41 PM T [facility] Glucose 252(H) 70 - 100 mg/dL LAB CHEMISTRY METHOD 09/18/2025 2:41 PM [facility] BUN 14 5 - 25 mg/dL LAB CHEMISTRY METHOD 09/18/2025 2:41 PM [facility] Creatinine 1.08 0.50 - 1.10 mg/dL LAB CHEMISTRY METHOD 09/18/2025 2:41 PM [facility] eGFR 56(L) >=60 mL/min/1. 73m2 LAB CHEMISTRY METHOD 09/18/2025 2:41 PM [facility] Comment:Calculation based on the Chronic Kidney Disease Epidemiology Collaboration (CKD-EPI) equation refit without adjustment for race. BUN/Creatinine Ratio 13.0 LAB CHEMISTRY METHOD 09/18/2025 2:41 PM [facility] Calcium 9.3 8.5 - 10.5 mg/dL LAB CHEMISTRY METHOD 09/18/2025 2:41 PM [facility] AST (SGOT) 9(L) 10 - 42 unit/L LAB CHEMISTRY METHOD 09/18/2025 2:41 PM [facility] ALT (SGPT) 24 10 - 60 unit/L LAB CHEMISTRY METHOD 09/18/2025 2:41 PM [facility] Alkaline Phosphatase 134(H) 42 - 121 unit/L LAB CHEMISTRY METHOD 09/18/2025 2:41 PM [facility] Total Protein 7.2 6.0 - 8.0 g/dL LAB CHEMISTRY METHOD 09/18/2025 2:41 PM [facility] Albumin 4.0 3.2 - 5.0 g/dL LAB CHEMISTRY METHOD 09/18/2025 2:41 PM [facility] Total Bilirubin 1.6(H) 0.0 - 1.4 mg/dL LAB CHEMISTRY METHOD 09/18/2025 2:41 PM [facility] Blood Venous blood specimen / Unknown Venipuncture / Unknown 09/18/2025 9:31 AM EDT 09/18/2025 9:31 AM EDT Adolph Butt MD LAB BLOOD ORDERABLES Final Resul t [facility] [address] [place] [address], [place] [phone] * [place] ARTHROCENTESIS/ASPIRATION/INJECTION MAJOR JOINT/BURSA W U/S GUIDANCE (09/02/2025 11:15 AM EDT) Prasanna Clemens MD - 09/02/2025 11:15 AM EDT Prasanna Watts MD 09/02/2025 1:10 PM L Inj/Asp: bilateral glenohumeral Indications: pain Details: 22 G needle, ultrasound-guided posterior approach Medications (Right): 40 mg triamcinolone acetonide 40 mg/mL Medications (Left): 40 mg triamcinolone acetonide 40 mg/mL Outcome: tolerated well, no immediate complications Site was prepped in standard fashion using alcohol swab, sterile technique was used to perform the injection, the patient tolerated the procedure well and a band-aid dressing was applied Informed Consent: Site: Glenohumeral Laterality: Bilateral Relevant images/test results available and reviewed: yes Health status cleared: Yes Procedure/treatment, purpose, treatment alternatives, risks/potential complications and benefits explained: yes Risk/complications/benefits details: Risk/complications/benefits details: Risks and benefits of corticosteroid injection were discussed, including risk of pain, bleeding, infection, tissue attenuation, tendon rupture, changes in skin color, and injury to surrounding structures such as arteries, veins and nerves. We also discussed the patient may develop worsening pain for a few days before having improvement in their symptoms. Patient questions answered: yes Patient agrees, verbalizes understanding, and wants to proceed: yes Consent given by: Patient Informed consent discussion completed by Physician/NILO with patient: Verbal Pre-procedure timeout performed: yes Prasanna Watts MD IN CLINIC/BEDSIDE ORDERABLES [facility] al Result * (ABNORMAL) Basic metabolic panel (08/25/2025 10:02 AM EDT) Sodium 140 133 - 145 mmol/L LAB CHEMISTRY METHOD 08/25/2025 3:33 PM [facility] Potassium 3.6 3.5 - 5.5 mmol/L LAB CHEMISTRY METHOD 08/25/2025 3:33 PM [facility] Chloride 106 96 - 110 mmol/L LAB CHEMISTRY METHOD 08/25/2025 3:33 PM [facility] CO2 28 21 - 32 mmol/L LAB CHEMISTRY METHOD 08/25/2025 3:33 PM [facility] Anion Gap 6 3 - 11 LAB CHEMISTRY METHOD 08/25/2025 3:33 PM [facility] Glucose 114(H) 70 - 100 mg/dL LAB CHEMISTRY METHOD 08/25/2025 3:33 PM [facility] BUN 15 5 - 25 mg/dL LAB CHEMISTRY METHOD 08/25/2025 3:33 PM [facility] Creatinine 0.98 0.50 - 1.10 mg/dL LAB CHEMISTRY METHOD 08/25/2025 3:33 PM [facility] eGFR 63 >=60 mL/min/1. 73m2 LAB CHEMISTRY METHOD 08/25/2025 3:33 PM [facility] Comment:Calculation based on the Chronic Kidney Disease Epidemiology Collaboration (CKD-EPI) equation refit without adjustment for race. BUN/Creatinine Ratio 15.3 LAB CHEMISTRY METHOD 08/25/2025 3:33 PM [facility] Calcium 9.4 8.5 - 10.5 mg/dL LAB CHEMISTRY METHOD 08/25/2025 3:33 PM [facility] Blood Venous blood specimen / Unknown Venipuncture / Unknown 08/25/2025 10:02 AM EDT 08/25/2025 10:02 AM EDT us Deisi Hicks NP LAB BLOOD ORDERABLES Final Res ult [facility] [address] [place] [address], * XR Shoulder 2+ Views bilat (08/25/2025 [...] MD IMG XR PROCEDURES Final Result * BD Bone Density DXA Axial Skeleton [...] (World Health Organization Fracture Risk Assessment) The [facility] recommends using National [...] alternative screening schedule based on jonathan Shearer., [facility] December 14, 2011 for patients with osteopenia [...] Signed Date: 12/30/2024 17:06 ET Workstation ID: [id number] Transcribed By: Self Edit Transcribed Date: 12/30/2024 [...] (World Health Organization Fracture Risk Assessment) The [facility] of Internal Medicine recommendsusing National Osteoporosis [...] alternative screening schedule based on jonathan Shearer., NEJMJanuary 2011 for patients with osteopenia (based on [...] Signed Date: 12/30/2024 17:06 ET Workstation ID: [id number] Transcribed By: Self Edit Transcribed Date: 12/30/2024 [...] is recommended in 1 year. Mammo Location: [facility], [address] [place] [address], [facility], . -------- FINAL REPORT -------- Dictated By: Nancie Nelson Dictated Date: 12/29/2024 17:02 ET Assigned Physician: Nancie Nelson Reviewed and Electronically Signed By: Nancie Nelson Signed Date: 12/29/2024 17:05 ET Workstation ID: [id number] Transcribed By: Self Edit Transcribed Date: 12/29/2024 [...] is recommended in 1 year. Mammo Location: [facility], [address] [place] [address], [id number], . -------- FINAL REPORT -------- Dictated By: Nancei Nelson Dictated Date: 12/29/2024 17:02 ET Assigned Physician: Nancie Nelson Reviewed and Electronically Signed By: Nancie Nelson Signed Date: 12/29/2024 17:05 ET Workstation ID: [id number] Transcribed By: Self Edit Transcribed Date: 12/29/2024 17:02 ET Adolph Butt MD [facility] BI PROCEDURES Final Result * External Diabetic Retina Eye Exam Report (09/29/2024) Anatomical Region Laterality Modality Ultrasound Provider Julio Cesar Onbase IMG US PROCEDURES Final Result * Depression Screening (07/18/2024) Depression Screening Abstracted Historical Provider HEALTH MAINTENANCE Final Result * Diabetes Foot Exam (07/18/2024) Diabetes: Annual Foot Exam Abstracted Result [facility] Provider HEALTH MAINTENANCE Final Result * Falls Risk Assessment (03/19/2024) Falls Risk Assessment Abstracted [facility] Provider HEALTH MAINTENANCE Final Result * Hepatitis C Screening (03/19/2024) Hepatitis C Screening Abstracted us Historical Provider HEALTH MAINTENANCE Final Result * Colonoscopy (11/18/2014) Colonoscopy No interpretation , Abstracted Anatomical Region Laterality Modality Other us Historical Provider HEALTH MAINTENANCE Final Result from Last 3 Months or Most Recently Relevant to Health Maintenance Insurance [employer] MED[employer]ARE [employer] Advance Directives * Full Code - Confirmed (Latest Code Status on File) Date Activated Date Inactivated Comments 09/17/2025 10:[address] [facility] was ascertained in the following way: Code status discussion: discussion with patient To update the patient's code status, place a code status order. Do not modify or discontinue any currently active code status orders. Care Teams Beef Lugger Relationship Specialty Start Date End Date Adolph Butt MD [address] [place] [id number] PCP - General 02/11/24
--- OUTSIDE RECORDS SUMMARY | 2025-09-26 10:58 | XMS_ITS | Clinical Summary ---
Author Organization [facility] Address [address] [place] [address] Care Team Providers Care Polysomnograph Tech Name Role Phone Sonny Whitaker MD Primary Care Provider [phone] Allergies Active Allergy Reactions Criticality Noted Date [...] age to complete this topic Care Teams Polysomnograph Tech Relationship Specialty Start Date End Date Sonny Whitaker MD [address] [place] [address] [place] [address] PCP - General Internal Medicine 02/23/22
[2025-09-26 11:32] VITALS: BP 106/66; PULSE 69; RESP 16; TEMP 36.4; O2SAT 99; BMI 49.0
--- NOTE | 2025-09-26 11:32 | AM.OFFWIN_ITS ---
Intake Vital Signs 09/26/25 11:32 Height 5 ft Weight 251 lb BMI 49.0 BP 106/66 Blood Pressure Location Lt brachial Position Sitting Respiration 16 Pulse 69 Pulse Source Pulse Oximeter Temp 97.6 F Temp Source Oral Pulse Oximetry (%) 99 Oxygen Delivery Method Room Air Intake Visit Reasons: EP Possible UTI Intake Note: Pt is here today c/o painful upon urination x3days Patient Tobacco Use Status: Never used Tobacco Allergies penicillamine Allergy (Unknown, Verified 09/26/25 11:40) unknown HPI EP Possible UTI HPI Details Patient is a 70-year-old female complains of painful urination for the last 3 days, associated with uncomfortable rash to the bilateral groin, and vaginal area, and mild low back discomfort. She tried topical antifungal and then barrier ointment today with little success in reducing symptoms. She denies recent intercourse. No vaginal discharge or bleeding, fever or chills, abdominal pain, nausea vomiting or diarrhea, myalgias or malaise, or other significant associated symptoms PFSH Medical History Cough in adult Social History Alcohol intake: never Patient Tobacco Use Status: Never used Tobacco Review of Systems Const All systems reviewed & are unremarkable except as noted in HPI and below Physical Exam Vital Signs: Last Vital Signs Temp 97.6 F 09/26/25 11:32 Pulse 69 09/26/25 11:32 Resp 16 09/26/25 11:32 BP 106/66 09/26/25 11:32 Pulse Ox 99 09/26/25 11:32 Oxygen Delivery Method Room Air 09/26/25 11:32 BMI result Body Mass Index 49.0 General: Yes no CVA tenderness External Female Exam: No normal external appearance (Extensive antifungal and Desitin ointment to the area) Speculum Exam - Vagina: erythematous, swelling and tenderness Back/Spine/Pelvis Back: no CVA tenderness Results AMB Urinalysis, Automated UA Leukoctes 0 Beckie/uL Last Edit by Julisa Lucas CMA on 09/26/25 11:50 UA Nitrite Negative Last Edit by Julisa Lucas CMA on 09/26/25 11:50 UA Urobilinogen 0.2 mg/dL Last Edit by Julisa Lucas, GODWIN on 09/26/25 11:50 UA Protein 0 mg/dL Last Edit by Julisa Lucas, GODWIN on 09/26/25 11:50 UA pH 6.0 Last Edit by Julisa Lucas, GODWIN on 09/26/25 11:50 UA Blood 0 Eduard/uL Last Edit by Julisa Lucas, GODWIN on 09/26/25 11:50 UA Specific [place] 1.020 Last Edit by Julisa Lucas, GODWIN on 09/26/25 11:50 UA Ketone Negative Last Edit by Julisa Lucas, GODWIN on 09/26/25 11:50 UA Bilirubin 0 mg/dL Last Edit by Julisa Lucas, GODWIN on 09/26/25 11:50 UA Glucose 500 mg/dL Last Edit by Julisa Lucas, GODWIN on 09/26/25 11:50 Results Reviewed Results Reviewed: Laboratory Last Values Urine pH (Auto) 6.0 09/26/25 11:49 Specific [place] (Auto) 1.020 09/26/25 11:49 Urine Protein (Auto) 0 mg/dL 09/26/25 11:49 Glucose (UA)(Auto) 500 mg/dL 09/26/25 11:49 Urine Ketones (Auto) Negative 09/26/25 11:49 Urine Blood (Auto) 0 Eduard/uL 09/26/25 11:49 Urine Nitrite (Auto) Negative 09/26/25 11:49 Urine Bilirubin (Auto) 0 mg/dL 09/26/25 11:49 Urine Urobilinogen (Auto) 0.2 mg/dL 09/26/25 11:49 Leukocyte Esterase (Auto) 0 Beckie/uL 09/26/25 11:49 Positive only for glucosuria Assessment & Plan Assessment & Plan (1) Dysuria: Code(s): R30.0 - Dysuria Plan Patient has glucosuria, but no nitrites, heme or leukocytes noted for complaint of dysuria. I think she has tinea cruris or candidal infection to her bilateral inguinal areas due to morbid obesity, that is getting irritated with the ammonia from her urine. However she does complain of discomfort from the urethra area, so I will put her on an antibiotic orally to cover for possible UTI, and we will send the urine out for culture and sensitivity testing. Macrobid written today. I also wrote her for a course of ketoconazole for intertrigo/tinea cruris. Due to her diabetes, with glucosuria, it is likely that her diabetes is not controlled and she would be better off for his have fluconazole. If needed, she can switch to Diflucan orally if BV panel reveals [place]. She knows to go to the emergency department if she develops worrisome symptoms. Orders: Orders AMB Urinalysis Automated Today Z13.9 - Encounter for screening, unspecified UA CC w/rflx Micro + Cult Today R30.0 - Dysuria Bacterial Vaginosis Panel Today B96.89 - Other specified bacterial agents as the cause of diseases classified elsewhere, N76.0 - Acute vaginitis Medications: New nitrofurantoin monohyd/m-cryst 100 mg (Macrobid) must administer with a meal/food 100 mg PO Q12H 10 caps 0RF 5 days N39.0 - Urinary tract infection, site not specified ketoconazole 2% 1 appl topical BID 30 grams 0RF 2 weeks Coding Level of Care Code Est Pt Level 4 (05941) Diagnoses Dysuria R30.0
== END 2025-09-26 12:46 | disposition home or self-care (01) ==
PROVIDERS: PCP Internal Medicine; Visit Provider Physician Assistant Medical
DX: R30.0 Dysuria (principal); Z13.9 Encounter for screening, unspecified

== ENCOUNTER 2025-09-26 10:55 | Outpatient (REF) | payer MEDICARE, SELFPAY ==
[2025-09-26 13:43] LABS: Appearance Urine Clear; Glucose Urine UA >=1000 mg/dL (Negative); PH 5.5 (5.0-9.0); Specific Gravity - Urine >= 1.030 (1.005-1.025); UMIC TRIGGER UACC YES
[2025-09-26 13:57] LABS: UACC Culture Trigger YES
[2025-09-26 14:44] LABS: Bacterial Vaginosis PCR NEGATIVE (Negative); Candida Group PCR DETECTED (Not Detect); Candida glab krusei PCR NOT DETECTED (Not Detect); Trichomonas vaginalis PCR NOT DETECTED (Not Detect)
== END 2025-09-26 10:56 | disposition home or self-care (01) ==
LOC: HO.LNP 10:55
PROVIDERS: PCP Internal Medicine; Visit Provider Physician Assistant Medical
DX: R30.0 Dysuria (principal); Z13.89 Encounter for screening for other disorder; N76.0 Acute vaginitis; B96.89 Other specified bacterial agents as the cause of diseases classified elsewhere
CPT/HCPCS: 81001; 81003; 81515; 87086; 87088; 99212